=== PATIENT | male | born 1930 | race Caucasian/White ===

== ENCOUNTER 2016-11-29 08:16 | Day surgery (SDC) | payer OTHER, BC ==
[2016-11-25 18:23] VITALS: BMI 20.9
[2016-11-29 10:18] LABS: ALBUMIN 3.8 g/dl (3.4-5.0); BILIRUBIN,TOTAL 0.7 mg/dL (0.2-1.0); CALCIUM 9.3 mg/dL (8.5-10.1); CREATININE 1.8 mg/dL (0.7-1.3); TOT PROT 7.1 g/dl (6.4-8.2)
[2016-11-29] MEDS ORDERED: LIDOCAINE HCL/PF 2% SDV 5ML VIAL ONE (10:58)
[2016-11-29] MEDS ORDERED: PROPOFOL 20 ML ONE (10:58)
[2016-11-29] MEDS ORDERED: LEVOFLOXACIN 500 MG PREMIX BAG IVPB ONE (11:03)
--- NOTE | 2016-11-29 12:17 | OP ---
Operative Note - Note: Operative Date: 11/29/16 Pre-Operative Diagnosis: Right hydronephrosis; gross hematuria; transitional cell carcinoma of the bladder Operation: cystoscopy; right ureteroscopy and attempted stent placement; trasurethral resection and vaporization of the bladder Findings: tumor with necrosis involving right dome, right lateral wall, and right hemitrigone. right intramural ureter obstructed secondary to TCC Post-Operative Diagnosis: Same as Pre-op Surgeon: Jose Guadalupe Meléndez Anesthesia: General Specimens Removed: bladder tumor fragments Drains & Tubes with Location: [address]
[2016-11-29] MEDS ORDERED: ONDANSETRON 4 MG/2 ML VIAL IVPUSH PRN (12:23)
[2016-11-29] MEDS ORDERED: oxyCODONE HCL 5 MG TABLET PO PRN (12:23)
[2016-11-29 13:19] VITALS: TEMP 98
[2016-11-29 14:32] VITALS: BP 146/68; PULSE 94
--- NOTE | 2016-11-29 19:42 | OP ---
DATE OF OPERATION: 11/29/2016 PREOPERATIVE DIAGNOSIS: Right hydronephrosis with transitional cell carcinoma involving right lateral wall and right hemitrigone with gross hematuria. ATTENDING: Jose Guadalupe Meléndez M.D. ANESTHESIA: General. PROCEDURE: Cystoscopy, right ureteroscopy and attempted stent placement. Transurethral resection and vaporization of bladder tumor involving right dome right lateral wall and right hemitrigone. DESCRIPTION OF PROCEDURE: The patient has a longstanding history of transitional cell carcinoma for which she does not want aggressive treatment. The patient has subsequently developed gross hematuria with clots requiring evacuation in the office setting. The patient continues with gross hematuria and is aware that he will require intervention in order to control the bleeding. The patient has been offered a transurethral resection vaporization of the bladder tumor in order to maintain his ability to avoid and reduce the gross hematuria. 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 The patient is currently against a right percutaneous nephrostomy tube placement with internalization of stent. The patient has been given all risks and benefits of all procedures and requests that minimal intervention be done at this time. The patient understands all risks and benefits including clot retention and with bladder perforation and an emergency cystectomy. In addition, the patient understands that he has a significant risk of loss of right kidney function. The patient is brought in the operating room and given general anesthesia without complication, placed in dorsal lithotomy position. Cystoscopy is performed and attempts at identifying the right ureteral orifice were successful. A wire was placed into the area of the right ureteral orifice and the wire passed roughly 2 cm proximally. Ureteroscopy was then performed and attempts at passing wire beyond this point were unsuccessful due to tumor involvement of the ureterovesical junction on the right hand side. Because of the position of the obstruction resection to this level would be high risk with risk of perforation and damage to the rectum, it was decided to remove the ureteroscope and attempt to present the case to the patient once again once he is awake and stable to have a right percutaneous nephrostomy tube. At this point, resection of tumor tissue was performed in order to ascertain tissue diagnosis. Once resection was accomplished, vaporization of the bulky tumor involving the dome right lateral wall and right hemitrigone were performed. The tumor was necrotic with significant amount of necrotic material and liquefaction present with vaporization. Hemostasis was obtained. All clots were evacuated. The area of the tumor involved area of 10 x 10 cm involving the right half of the bladder at this point. There was no evidence of perforation during the procedure. A 24 Lao catheter straight drainage was left in place. The patient will be followed conservatively. Kennedi [id number]
--- NOTE | 2016-11-30 13:41 | PATH ---
Surgical Pathology Report Patient Name: IRINEO FALLON JR [facility]. Rec. 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 LAMINA PROPRIA INVASION: PRESENT. MUSCULARIS PROPRIA IS PRESENT, INVOLVED BY CARCINOMA. LYMPHOVASCULAR INVASION: NOT DEFINITIVELY IDENTIFIED. Electronically Signed Bravo Segovia M.D. Gross Description Received in formalin, labeled "bladder tumor" is a 2.6 x 2.0 x 0.3 cm aggregate of tirado soft tissue fragments admixed with blood clot. The formalin is filtered and the specimen is entirely submitted in one cassette. /11/29/2016 saudi11/29/2016
== END 2016-11-29 14:35 | disposition home or self-care (01) ==
LOC: JASU-SURG 08:16
PROVIDERS: ATTEND Urology
PROC: 0T5B8ZZ Destruction of Bladder, Via Natural or Artificial Opening Endoscopic (ICD-10-PCS; principal; 2016-11-29 09:30)
DX: C67.9 Malignant neoplasm of bladder, unspecified (principal); R31.0 Gross hematuria; N32.89 Other specified disorders of bladder
CPT/HCPCS: 36415; 80053; 88307-TC; 94760

== ENCOUNTER 2017-01-19 14:37 | Inpatient (IN) | payer OTHER, BC ==
--- NOTE | 2017-01-19 14:59 | PDOC ---
Rapid Medical Evaluation Chief Complaint: Pain, Acute Time Seen by Provider: 01/19/17 14:53 Medical Evaluation: Allergies Allergy/AdvReac Type Severity Reaction Status Date / Time No Known Drug Allergies Allergy Verified 11/29/16 08:49 01/19/17 14:54 Unable to move Right Leg with pain to hip- Hx of sciatica - 2 weeks ago onset of pain , no swelling , NO history of trauma or changes in exercise. diagnosed with Bladder cancer x 1 year. No other medical complaints incl fevers/ CP/ Palp/ SOB/COugh. Dr Martin- told to come to ER Orders- will need to be taken to ER for further testing and evaluiation. 01/19/17 15:03 01/19/17 15:04
[2017-01-19 15:32] LABS: BASOPHIL 0.2 % (0-2.0); EOSINOPHIL 0.3 % (0-4.5); MCH 28.6 pg (25.7-33.7); MCHC 34.9 g/dl (32.0-35.9); MEAN CELL VOLUME 81.8 fl (80-96); MEAN PLT VOLUME 7.2 fl (7.5-11.1); NEUTROPHILS 86.5 % (42.8-82.8); PLATELET COUNT 267 K/MM3 (134-434); RDW 14.4 % (11.9-15.9); WHITE BLOOD COUNT 10.9 K/mm3 (4.0-10.0)
[2017-01-19 15:55] LABS: ALBUMIN 3.9 g/dl (3.4-5.0); BILIRUBIN,TOTAL 0.8 mg/dL (0.2-1.0); CALCIUM 8.9 mg/dL (8.5-10.1); CREATININE 1.6 mg/dL (0.7-1.3); TOT PROT 7.3 g/dl (6.4-8.2)
[2017-01-19 16:09] LABS: INR 1.11 (0.82-1.09); PROTHROMBIN TIME (PATIENT) 12.2 SEC (9.98-11.88)
[2017-01-19 16:30] LABS: URINE APPEARANCE CLEAR; URINE BILIRUBIN NEGATIVE (NEGATIVE); URINE COLOR LTYELLOW; URINE GLUCOSE (UA) NEGATIVE (NEGATIVE); URINE KETONE NEGATIVE (NEGATIVE); URINE NITRITE NEGATIVE (NEGATIVE); URINE UROBILINOGEN 2.0 E.U/dl E.U./dl (0.2-1.0)
[2017-01-19 16:44] LABS: URINE BLOOD 2+ (NEGATIVE); URINE LEUK ESTERASE 2+ (NEGATIVE); URINE PROTEIN 1+ (NEGATIVE)
--- NOTE | 2017-01-19 17:50 | PDOC ---
[id number] FATIGUE, UNABLE TO WALK Time Seen by Provider: 01/19/17 14:53 History Source: Patient Exam Limitations: No Limitations - History of Present Illness Initial Comments: CHIEF COMPLAINT: 86 y/o afebrile male with PMH HTN, HLD, bladder CA c/o right leg pain and weakness since yesterday. HISTORY OF PRESENT ILLNESS: The patient denies trauma and fall. He states all of a sudden last night he was feeling a lot of pain any time he put weight on his right leg. He states today the leg keeps giving out on him if he bears weight. He denies f/c, n/v/d, weight loss, CP, SOB, abd pain, pelvic pain. He hasn't taken any OTC medication for his pain and is currently refusing pain medication. Vital signs on arrival are within normal limits. REVIEW OF SYSTEMS: GENERAL/CONSTITUTIONAL: No fever/chills. No weakness. No weight change. HEAD, EYES, EARS, NOSE AND THROAT: No change in vision. No ear pain or discharge. No sore throat. CARDIOVASCULAR: No chest pain or shortness of breath. RESPIRATORY: No cough, wheezing, or hemoptysis. GASTROINTESTINAL: No abd pain, nausea, vomiting, diarrhea. GENITOURINARY: No dysuria, frequency, or change in urination. MUSCULOSKELETAL: +right leg pain and weakness. No neck or back pain. SKIN: No rash or easy bruising. NEUROLOGIC: No headache, vertigo, loss of consciousness, or loss of sensation. PHYSICAL EXAM: GENERAL: The patient is awake, alert, and fully oriented, in no acute distress. He is well appearing. HEAD: Normal with no signs of trauma. ENT: Pupils equal, round and reactive to light, extraocular movements intact, sclera anicteric, conjunctiva clear. Neck supple. LUNGS: Clear to auscultation bilaterally. Normal excursion. No respiratory distress or use of accessory muscles. CV: RRR, S1/S2, no MRG. Cap refill < 2 sec. ABDOMEN: Soft, non-distended, non-tender even to deep palpation, no hepatomegaly or splenomegaly, no masses. EXTREMITIES: No edema. no pain with palpation of right leg, calf, hip or pelvis. No palor to right leg. 2+ dorsalis pedis pulse to right foot. No erythema or streaking to affected extremity. No ROM of affected leg. No pain with passive flexion, extension of right hip or knee. No pain with passive internal and external rotation of right hip. No leg length discrepancy. NEUROLOGICAL: Normal speech. Gait not assessed in the ER. CN II-XII grossly intact. PSYCH: Normal mood, normal affect. SKIN: Warm, dry, normal turgor, no rashes or lesions noted. Past History - Past Medical History Allergies/Adverse Reactions: Allergies Allergy/AdvReac Type Severity Reaction Status Date / Time No Known Drug Allergies Allergy Verified 01/19/17 14:59 Home Medications: Ambulatory Orders Amlodipine Besylate [Norvasc -] 5 mg PO DAILY #0 tablet 02/09/14 Atorvastatin Ca [Lipitor] 10 mg PO HS #0 tablet 02/09/14 Hydrochlorothiazide [Hctz -] 25 mg PO DAILY #0 tablet 02/09/14 Metoprolol Tartrate [Lopressor -] 50 mg PO DAILY #0 tablet 02/09/14 Cancer: Yes (BLADDER) Disorders: Yes (BPH) HTN: Yes (controlled with meds) Hypercholesterolemia: Yes - Surgical History Abdominal Surgery: Yes (hernia x2) - Psycho/Social/Smoking Cessation Hx Anxiety: No Suicidal Ideation: No Smoking History: Never smoked Have you smoked in the past 12 months: No Number of Cigarettes Smoked Daily: 0 If you are a former smoker, when did you quit?: 12YRS AGO Cigars Per Day: 3 Hx Alcohol Use: No Drug/Substance Use Hx: No Substance Use Type: None *Physical Exam - Vital Signs Last Vital Signs Temp Pulse Resp BP Pulse Ox 97.6 F 81 20 145/69 100 01/19/17 14:53 01/19/17 14:53 01/19/17 14:53 01/19/17 14:53 01/19/17 14:53 ED Treatment Course - LABORATORY CBC & Chemistry Diagram: 01/21/17 05:00 01/21/17 05:00 - ADDITIONAL ORDERS Additional order review: Laboratory Results 01/19/17 01/19/17 01/19/17 15:45 15:15 15:15 INR 1.11 Sodium 129 L Potassium 4.1 Chloride 89 L Carbon Dioxide 30 Anion Gap 10 BUN 35 H Creatinine 1.6 H Creat Clearance w eGFR 41.00 Random Glucose 114 H Calcium 8.9 Total Bilirubin 0.8 AST 14 L D ALT 19 D Alkaline Phosphatase 116 D Total Protein 7.3 Albumin 3.9 Urine Color Ltyellow Urine Appearance Clear Urine pH 6.0 Ur Specific [place] 1.016 Urine Protein 1+ H Urine Glucose (UA) Negative Urine Ketones Negative Urine Blood 2+ H Urine Nitrite Negative Urine Bilirubin Negative Urine Urobilinogen 2.0 e.u/dl Ur Leukocyte Esterase 2+ H 01/19/17 15:15 RBC 3.97 L MCV 81.8 MCHC 34.9 RDW 14.4 MPV 7.2 L Neutrophils % 86.5 H Lymphocytes % 5.2 L D Monocytes % 7.8 Eosinophils % 0.3 D Basophils % 0.2 Medical Decision Making - Medical Decision Making A/P: 86 y/o afebrile male with possible metastatic disease to right hip/ pelvis. He has sudden onset atraumatic right leg pain/weakness. Plan is as follows: 1. Labs 2. Xray right hip/pelvis 3. CXR Labs unremarkable I am signing this patient out to my colleague: MEGAN Fuentes In brief, this patient is being seen in the ED for a chief complaint of: right leg pain and weakness I have completed the initial assessment interview note and have ordered: labs, CXR, xray right hip/pelvis I have reviewed the following results: labs Pending results are: xrays Please call the PCP: Bright Plan for disposition is as follows: pending *DC/Admit/Observation/Transfer Diagnosis at time of Disposition: Leg pain, right, Right leg weakness - Discharge Dispostion Condition at time of disposition: Good
[2017-01-19 19:38] LABS: URINE RBC 72 /hpf (0-3); URINE WBC 65 /hpf (3-5)
[2017-01-19] MEDS ORDERED: PIPERACILLIN/TAZOB 3.375 GM 50 ML IVPB ONE (21:15)
[2017-01-19] MEDS ORDERED: PIPERACILLIN/TAZOB 3.375 GM/50 ML PRE-DOCKED IVPB ONE (22:03)
--- NOTE | 2017-01-20 | PDOC ---
*Physical Exam - Vital Signs Last Vital Signs Temp Pulse Resp BP Pulse Ox 98.8 F 80 18 129/55 99 01/19/17 19:14 01/19/17 19:14 01/19/17 19:14 01/19/17 19:14 01/19/17 19:14 - Physical Exam Comments: 01/19/17 23:59 Sign-out received from outgoing ER provider Jasmin. Pt interviewed and examined. Ancillary studies reviewed. X-ray results negative for mets. Patient UA positive for UTI. Creatinine 1.6, down from 1.8 on 11/29/16 -3.375g Zosyn IV CT results negative for mets, MRI recommended. Patient still non ambulatory, bathroom at home is upstairs. Will admit to obs for social hold, patient requires VNS or transfer to SNF/rehab in AM. Discussed case with attending hospitalist MD Brunner, will admit for med/surg obs. ED Treatment Course - LABORATORY CBC & Chemistry Diagram: 01/19/17 15:15 01/19/17 15:15 - ADDITIONAL ORDERS Additional order review: Laboratory Results 01/19/17 01/19/17 01/19/17 15:45 15:15 15:15 INR 1.11 Sodium 129 L Potassium 4.1 Chloride 89 L Carbon Dioxide 30 Anion Gap 10 BUN 35 H Creatinine 1.6 H Creat Clearance w eGFR 41.00 Random Glucose 114 H Calcium 8.9 Total Bilirubin 0.8 AST 14 L D ALT 19 D Alkaline Phosphatase 116 D Total Protein 7.3 Albumin 3.9 Urine Color Ltyellow Urine Appearance Clear Urine pH 6.0 Ur Specific [place] 1.016 Urine Protein 1+ H Urine Glucose (UA) Negative Urine Ketones Negative Urine Blood 2+ H Urine Nitrite Negative Urine Bilirubin Negative Urine Urobilinogen 2.0 e.u/dl Ur Leukocyte Esterase 2+ H Urine RBC 72 Urine WBC 65 Ur Epithelial Cells Rare 01/19/17 15:15 RBC 3.97 L MCV 81.8 MCHC 34.9 RDW 14.4 MPV 7.2 L Neutrophils % 86.5 H Lymphocytes % 5.2 L D Monocytes % 7.8 Eosinophils % 0.3 D Basophils % 0.2 - RADIOLOGY Radiology Studies Ordered: Category Date Time Status LUMBAR SPINE CT W/O CONTRAST [CT] Stat CT Scan 01/19/17 21:00 Completed - Medications Given in the ED: ED Medications Discontinued Medications Generic Name Dose Route Start Last Admin Trade Name Lucia PRN Reason Stop Dose Admin Piperacillin Sod/Tazobactam Sod 3.375 gm 01/19/17 22:03 01/19/17 22:04 Zosyn 3.375gm Ivpb (Pre-Docked) IVPB 01/19/17 22:04 3.375 gm ONCE ONE Administration Protocol *DC/Admit/Observation/Transfer Diagnosis at time of Disposition: Leg pain, right, Right leg weakness - Discharge Dispostion Condition at time of disposition: Good Admit: Yes - Referrals - Patient Instructions - Post Discharge Activity
[2017-01-20] MEDS ORDERED: SODIUM CHLORIDE 500 ML IV STA (00:40)
--- NOTE | 2017-01-20 01:39 | HP ---
CHIEF COMPLAINT: Right Leg Weakness, Pain, and Non-ambulatory PCP: Dr. Vega HISTORY OF PRESENT ILLNESS: This is a 86 y/o male with a past medical history of Hypertension, Hyperlipidemia, Sciatica, Bladder Ca ( x 1 year, chemo completed), s/p bladder scrapping x 6 weeks. Who presents to the emergency department accompanied by his daughter with right leg weakness, pain, non-ambulatory x 1 day. Patient reports ambulating with a cane, falling in his kitchen onto his buttock. Patient denies LOC. Patient states" I can't stand or walk on my right leg, because of the pain". Patient's daughter reports that the patient lives at home alone, and the bathroom is located upstairs. Patient denies fever, chills, cough , SOB, CP, AP, N/V/D ER course was notable for: (1) Xray R- Hip & Pelvis: No radiographic evidence of neoplastic disease or fracture is identified (2) LSP CT:No CT evidence of osseous neoplastic disease. Prominent multilevel degenerative disc and facet joint changes. (3) UA: +protein, leukocyte esterase, WBC (4) Na: 129 Recent Travel: None PAST MEDICAL HISTORY: See HPI PAST SURGICAL HISTORY: Hernia Repair Social History: Smoking: Former- Cigar Alcohol: None Drugs: None Family History: Allergies No Known Drug Allergies Allergy (Verified 01/19/17 14:59) HOME MEDICATIONS: Home Medications Medication Instructions Recorded Amlodipine Besylate [Norvasc -] 5 mg PO DAILY #0 tablet 02/09/14 Atorvastatin Ca [Lipitor] 10 mg PO HS #0 tablet 02/09/14 Hydrochlorothiazide [Hctz -] 25 mg PO DAILY #0 tablet 02/09/14 Metoprolol Tartrate [Lopressor -] 50 mg PO DAILY #0 tablet 02/09/14 REVIEW OF SYSTEMS CONSTITUTIONAL: Absent: fever, chills, diaphoresis, generalized weakness, malaise, loss of appetite, weight change HEENT: Absent: rhinorrhea, nasal congestion, throat pain, throat swelling, difficulty swallowing, mouth swelling, ear pain, eye pain, visual changes CARDIOVASCULAR: Absent: chest pain, syncope, palpitations, irregular heart rate, lightheadedness , peripheral edema RESPIRATORY: Absent: cough, shortness of breath, dyspnea with exertion, orthopnea, wheezing, stridor, hemoptysis GASTROINTESTINAL: Absent: abdominal pain, abdominal distension, nausea, vomiting, diarrhea, constipation, melena, hematochezia GENITOURINARY: burning, frequency Absent: dysuria, urgency, hesitancy, hematuria, flank pain, genital pain MUSCULOSKELETAL: Absent: myalgia, arthralgia, joint swelling, back pain, neck pain SKIN: Absent: rash, itching, pallor HEMATOLOGIC/IMMUNOLOGIC: Absent: easy bleeding, easy bruising, lymphadenopathy, frequent infections ENDOCRINE: Absent: unexplained weight gain, unexplained weight loss, heat intolerance, cold intolerance NEUROLOGIC: Absent: headache, focal weakness or paresthesias, dizziness, unsteady gait, seizure, mental status changes, bladder or bowel incontinence PSYCHIATRIC: Absent: anxiety, depression, suicidal or homicidal ideation, hallucinations. PHYSICAL EXAMINATION Vital Signs - 24 hr 01/19/17 01/19/17 14:53 19:14 Temperature 97.6 F 98.8 F Pulse Rate 81 Pulse Rate [ 80 Radial] Respiratory 20 18 Rate Blood Pressure 145/69 Blood Pressure 129/55 [Left Arm] O2 Sat by Pulse 100 99 Oximetry (%) GENERAL: Awake, alert, and fully oriented, in no acute distress. HEAD: Normal with no signs of trauma. EYES: Pupils equal, round and reactive to light, extraocular movements intact, sclera anicteric, conjunctiva clear. No lid lag. EARS, NOSE, THROAT: Ears normal, nares patent, oropharynx clear without exudates. Dry mucous membranes. NECK: Normal range of motion, supple without lymphadenopathy, JVD, or masses. LUNGS: Breath sounds equal, clear to auscultation bilaterally. No wheezes, and no crackles. No accessory muscle use. HEART: Regular rate and rhythm, normal S1 and S2 without murmur, rub or gallop. ABDOMEN: Soft, nontender, not distended, normoactive bowel sounds, no guarding, no rebound, no masses. No hepatomegaly or splenomegaly. MUSCULOSKELETAL: Normal range of motion RUE, LUE, LLE joints. No bony deformities. No CVA tenderness. LROM of RLE. +tenderness to right gluteal aspect. +straight leg raise test. UPPER EXTREMITIES: 2+ pulses, warm, well-perfused. No cyanosis. No clubbing. No peripheral edema. LOWER EXTREMITIES: 2+ pulses, warm, well-perfused. No calf tenderness. No peripheral edema. NEUROLOGICAL: Cranial nerves II-XII intact. Normal speech. Gait not observed. PSYCHIATRIC: Cooperative. Good eye contact. Appropriate mood and affect. SKIN: Warm, dry, normal turgor, no rashes or lesions noted, normal capillary refill. Laboratory Results - last 24 hr 01/19/17 01/19/17 01/19/17 15:15 15:15 15:15 WBC 10.9 H RBC 3.97 L Hgb 11.3 L D Hct 32.5 L MCV 81.8 MCHC 34.9 RDW 14.4 Plt Count 267 MPV 7.2 L Neutrophils % 86.5 H Lymphocytes % 5.2 L D Monocytes % 7.8 Eosinophils % 0.3 D Basophils % 0.2 INR 1.11 Sodium 129 L Potassium 4.1 Chloride 89 L Carbon Dioxide 30 Anion Gap 10 BUN 35 H Creatinine 1.6 H Creat Clearance w eGFR 41.00 Random Glucose 114 H Calcium 8.9 Total Bilirubin 0.8 AST 14 L D ALT 19 D Alkaline Phosphatase 116 D Total Protein 7.3 Albumin 3.9 Urine Color Urine Appearance Urine pH Ur Specific [place] Urine Protein Urine Glucose (UA) Urine Ketones Urine Blood Urine Nitrite Urine Bilirubin Urine Urobilinogen Ur Leukocyte Esterase Urine RBC Urine WBC Ur Epithelial Cells 01/19/17 15:45 WBC RBC Hgb Hct MCV MCHC RDW Plt Count MPV Neutrophils % Lymphocytes % Monocytes % Eosinophils % Basophils % INR Sodium Potassium Chloride Carbon Dioxide Anion Gap BUN Creatinine Creat Clearance w eGFR Random Glucose Calcium Total Bilirubin AST ALT Alkaline Phosphatase Total Protein Albumin Urine Color Ltyellow Urine Appearance Clear Urine pH 6.0 Ur Specific [place] 1.016 Urine Protein 1+ H Urine Glucose (UA) Negative Urine Ketones Negative Urine Blood 2+ H Urine Nitrite Negative Urine Bilirubin Negative Urine Urobilinogen 2.0 e.u/dl Ur Leukocyte Esterase 2+ H Urine RBC 72 Urine WBC 65 Ur Epithelial Cells Rare ASSESSMENT/PLAN: This is a 86 y/o male with a PMHx of: HTN, HLD, Sciatica, Bladder Ca ( 2016, completed chemo x 1year), s/p bladder scrapping 6 weeks ago. Presents to the ED with RLE weakness, pain, non-ambulatory. Placed in Observation for RLE weakness , UTI, Hyponatremia for further evaluation of their emergent condition. Problem List - Problem (1) Right leg weakness Assessment/Plan: - Patient reports fall x today, with increased leg weakness, non-ambulatory, non -weight bearing - Xray R- Hip & Pelvis- No radiographic evidence of neoplastic disease or fracture is identified - LSP CT- No CT evidence of osseous neoplastic disease. Prominent multilevel degenerative disc and facet joint changes are noted. A minimal to mild chronic L2 vertebral body compression fracture is noted without bony retropulsion. - Deputy Director Of Public Works Consult for VNS services - Therapeutic Sales Specialist Consult for Rehab or SNF placement - Neuro checks - PT Code(s): R29.898 - OTH SYMPTOMS AND SIGNS INVOLVING THE MUSCULOSKELETAL SYSTEM (2) Leg pain, right Assessment/Plan: - Likely secondary to radiculopathy - Xray R-Leg- See Above - LSP CT- See Above - PT - Case Management Consult for possible SNF placement - Hog Driver Consult for VNS - Tylenol prn Code(s): M79.604 - PAIN IN RIGHT LEG (3) UTI (urinary tract infection) Assessment/Plan: - UA + Leukocyte esterase, +WBC - Urine Culture- pending - Zosyn given in ED - Will start Ceftriaxone. - Monitor CBC, vitals Code(s): N39.0 - URINARY TRACT INFECTION, SITE NOT SPECIFIED (4) Hyponatremia Assessment/Plan: - Likely secondary to Medication vs hypovalemia, dehydration - Will give NS bolus, then continue 42ml/hr - Na corrected 131 - Hold HCTZ - Monitor BMP Code(s): E87.1 - HYPO-OSMOLALITY AND HYPONATREMIA (5) HLD (hyperlipidemia) Assessment/Plan: - Continue Liptor Code(s): E78.5 - HYPERLIPIDEMIA, UNSPECIFIED (6) HTN (hypertension) Assessment/Plan: - BP Controlled - Continue Lopressor, Norvasc - Hold HCTZ 2/2 KIANNA - Low Na Code(s): I10 - ESSENTIAL (PRIMARY) HYPERTENSION (7) DVT prophylaxis Assessment/Plan: - OOB - TEDs - Heparin SQ Code(s): BVT1179 - Visit type - Emergency Visit Emergency Visit: Yes ED Registration Date: 01/20/17 Care time: The patient presented to the Emergency Department on the above date and was hospitalized for further evaluation of their emergent condition. - New Patient This patient is new to me today: Yes Date on this admission: 01/20/17 - Critical Care Critical Care patient: No
[2017-01-20 03:11] VITALS: BMI 20.4
[2017-01-20] MEDS ORDERED: SODIUM CHLORIDE 1,000 ML IV SCH ×2 (07:00→13:41)
[2017-01-20] MEDS: HEPARIN NA (PORCINE) 5,000 UNITS/ML 1ML VIAL SQ SCH ×2 (09:49→21:37)
[2017-01-20] MEDS: amLODIPine BESYLATE 5 MG TABLET (FP) PO SCH (09:49)
[2017-01-20] MEDS: METOPROLOL TARTRATE 50 MG TABLET (FP) PO SCH (09:49)
[2017-01-20] MEDS: cefTRIAXone 1 GM/50 ML BAG (PRE-DOCKED) IVPB SCH (09:50)
[2017-01-20] MEDS ORDERED: CEFTRIAXONE 1 GM in DEXTROSE 5%-WATER - 100 ML IVPB SCH (10:00)
[2017-01-20 10:15] LABS: BASOPHIL 0.3 % (0-2.0); EOSINOPHIL 0.4 % (0-4.5); MCH 28.3 pg (25.7-33.7); MCHC 34.8 g/dl (32.0-35.9); MEAN CELL VOLUME 81.5 fl (80-96); MEAN PLT VOLUME 7.1 fl (7.5-11.1); NEUTROPHILS 84.2 % (42.8-82.8); PLATELET COUNT 234 K/MM3 (134-434); RDW 14.1 % (11.9-15.9); WHITE BLOOD COUNT 7.8 K/mm3 (4.0-10.0)
[2017-01-20 10:34] LABS: ALBUMIN 3.3 g/dl (3.4-5.0)
[2017-01-20 11:15] LABS: BILIRUBIN,TOTAL 0.9 mg/dL (0.2-1.0); CALCIUM 8.7 mg/dL (8.5-10.1); CREATININE 1.5 mg/dL (0.7-1.3); TOT PROT 6.1 g/dl (6.4-8.2)
--- NOTE | 2017-01-20 13:41 | PN ---
Physical Exam: SUBJECTIVE: Patient seen and examined. He was laying in the bed, states he feels well. He reports being very independent at home. Daughter and son in room and report patient is very independent, lives alone. Able to care for himself but they noticed that he had poor PO intake and some depression over loss of 3 years ago. OBJECTIVE: Bladder scan shows residual of 45cc/hr No suprapubic discomfort or distention pt able to void without difficulty/@ times incontinent Spoke with Dr. Vega, patient's Primary physician - Physician to see pt tonight , aware and agree to hospitalist service on his patient Dr. Culp consulted for KIANNA CT findings Vital Signs Period Temp Pulse Resp BP Sys/Askew Pulse Ox Last 24 Hr 97.5 F-98.2 F 77-82 17-20 118-145/56-70 99-100 GENERAL: The patient is awake, alert, and fully oriented, in no acute distress. HEAD: Normal with no signs of trauma. EYES: PERRL, extraocular movements intact, sclera anicteric, conjunctiva clear. No ptosis. ENT: Ears normal, nares patent, oropharynx clear without exudates, moist mucous membranes. NECK: Trachea midline, full range of motion, supple. LUNGS: Breath sounds equal, clear to auscultation bilaterally, no wheezes, no crackles, no accessory muscle use. HEART: Regular rate and rhythm ABDOMEN: Soft, nontender, nondistended, + bowel sounds, no guarding, no rebound , no hepatosplenomegaly, no masses. EXTREMITIES: 2+ pulses, warm, well-perfused, no edema. NEUROLOGICAL: Normal speech,right leg weakness PSYCH: Normal mood, normal affect. SKIN: Warm, dry, normal turgor, no rashes or lesions noted Laboratory Results - last 24 hr 01/20/17 01/20/17 09:45 09:45 WBC 7.8 RBC 3.61 L Hgb 10.2 L Hct 29.4 L MCV 81.5 MCHC 34.8 RDW 14.1 Plt Count 234 MPV 7.1 L Neutrophils % 84.2 H Lymphocytes % 7.2 L D Monocytes % 7.9 Eosinophils % 0.4 Basophils % 0.3 Sodium 132 L Potassium 3.8 Chloride 93 L Carbon Dioxide 28 Anion Gap 11 BUN 28 H Creatinine 1.5 H Creat Clearance w eGFR 44.17 Random Glucose 144 H D Calcium 8.7 Total Bilirubin 0.9 AST 11 L D ALT 16 Alkaline Phosphatase 101 Total Protein 6.1 L Albumin 3.3 L Active Medications Generic Name Dose Route Start Last Admin Trade Name Lucia PRN Reason Stop Dose Admin Amlodipine Besylate 5 mg 01/20/17 10:00 01/20/17 09:49 Norvasc - PO 5 mg DAILY LUCÍA Administration Atorvastatin Calcium 10 mg 01/20/17 22:00 Lipitor - PO HS LUCÍA Ceftriaxone Sodium 1 gm 01/20/17 10:00 01/20/17 09:50 Rocephin 1gm Ivpb (Pre-Docked) IVPB 1 gm DAILY LUCÍA Administration Heparin Sodium (Porcine) 5,000 unit 01/20/17 10:00 01/20/17 09:49 Heparin - SQ 5,000 unit BID LUCÍA Administration Sodium Chloride 1,000 mls @ 42 mls/hr 01/20/17 07:00 01/20/17 09:49 Normal Saline - IV 42 mls/hr ASDIR LUCÍA Administration Metoprolol Tartrate 50 mg 01/20/17 10:00 01/20/17 09:49 Lopressor - PO 50 mg DAILY LUCÍA Administration ASSESSMENT/PLAN: Patient is a 86 year old male with a significant past medical history of hypertension, hyperlipidemia, sciatica, bladder cancer s/p chemotherapy and s/p bladder scrapping. He presented to the ER on 01/09/2017 for right leg weakness s/p fall at home where he landed on his buttocks. He reports that he has had worsening right leg pain and weakness x 1 day. Patient's daughter reports that patient lives at home alone with an upstairs bathroom. As per daughter, patient is usually ambulatory with cane and independent with all ADLs. Patient continues to deny fever, chills, cough, shortness of breath or any other discomfort. During my exam, he was laying in the bed, in no acute distress. Imagin01/19/2017 - Xray R- Hip & Pelvis: No radiographic evidence of neoplastic disease or fracture is identified 01/19/2017 - CT/Lumbar spine ct w/o contrast:No evidence of osseous neoplastic disease. Prominent multilevel degenerative disc and facet joint changes are noted. In comparison with the abd/pelvic ct of 10/12/2007, interval development of the focal soft tissue thickening along the right post aspect of the partially imaged bladder wall consistent with known mets disease. Development of right sided hydroureteronephrosis is probably moderate. 01/19/2017 - UA: +protein, + leukocyte esterase, WBC 65 Muscular/Skeletal Right Leg Pain/weakness - s/p fall Assessment/Plan: Xray of right leg with no evidence of neoplastic disease or fracture CT/Lumbar spine ct w/o contrast:No evidence of osseous neoplastic disease. Prominent multilevel degenerative disc and facet joint changes are noted Will need physical therapy = requested Possible short term rehab - SW following Fall risk ID: Urinary Tract Infection - acute Assessment/Plan: UA: +protein, + leukocyte esterase, WBC 65 + Leukocytosis on admission Zosyn given in ED, Started on Rocephin 1 gram on 01/20/2017 Urine cultures pending Blood cultures ordered WBC normalized today monitor CBC, vitals : Acute Kidney Injury Assessment/Plan: on CT/Pelvis shows development of right sided hydroureteronephrosis-moderate Dr. Culp consulted Monitor I & O BUN/Creat: 28/1.5 today, baseline appears to be between 1.0~1.2 Bladder scan with very little post void residual Hyponatremia - likely related to dehydration Assessment/Plan: hyponatremia improving with NS bolus 129> 132 NS @ 75cc/hr Will continue to hold HCTZ monitor BMP F.E.N. Fluids: NS @ 75cc/hr Electrolytes: hyponatremia improving on IV fluids Nutrition: reported to have poor PO intake, will order Ensure with meals Disposition: Requires inpatient hospitalization, and likely will need short term rehab. Full Code. Visit type - Emergency Visit Emergency Visit: Yes ED Registration Date: 01/20/17 Care time: The patient presented to the Emergency Department on the above date and was hospitalized for further evaluation of their emergent condition. - New Patient This patient is new to me today: Yes Date on this admission: 01/20/17 - Critical Care Critical Care patient: No - Discharge Referral Referred to [facility] Med P.C[facility] No
--- NOTE | 2017-01-20 17:06 | EKG ---
Test Reason : Blood Pressure : / mmHG Vent. Rate : 079 BPM Atrial Rate : 079 BPM P-R Int : 190 ms QRS Dur : 088 ms QT Int : 388 ms P-R-T Axes : 085 -70 057 degrees QTc Int : 444 ms POOR DATA QUALITY, INTERPRETATION MAY BE ADVERSELY AFFECTED SINUS RHYTHM WITH PREMATURE ATRIAL COMPLEXES LEFT AXIS DEVIATION ABNORMAL ECG Confirmed by WILLIAM KEANE MD ([id number]) on 01/20/2017 5:06:21 PM Referred By: Confirmed By:WILLIAM KEANE MD
[2017-01-20] MEDS ORDERED: PIPERACILLIN/TAZOB 3.375 GM/50 ML PRE-DOCKED IVPB ONE ×2 (20:47→21:41)
[2017-01-20] MEDS: ATORVASTATIN CA 10 MG TABLET (FP) PO SCH (21:37)
[2017-01-21 06:45] LABS: EOSINOPHIL 1.9 % (0-4.5); MCHC 34.2 g/dl (32.0-35.9); MEAN CELL VOLUME 82.1 fl (80-96); MEAN PLT VOLUME 7.4 fl (7.5-11.1); NEUTROPHILS 71.4 % (42.8-82.8); PLATELET COUNT 251 K/MM3 (134-434); RDW 14.2 % (11.9-15.9); WHITE BLOOD COUNT 7.5 K/mm3 (4.0-10.0)
[2017-01-21 06:59] LABS: CALCIUM 8.2 mg/dL (8.5-10.1)
[2017-01-21 07:00] LABS: CREATININE 1.4 mg/dL (0.7-1.3)
--- NOTE | 2017-01-21 08:43 | CONSULT ---
Consult Consult Specialty:: Nephrology Reason for Consultation:: KIANNA - History of Present Illness Chief Complaint: right leg pain History of Present Illness: Pt is an 86 year old male with pmhx of HTN, Chol, Sciatica, bladder cancer, and right obstructive uropathy who presents to the ER with right leg pain and weakness. Pt did have a fall at home. He was found to have elevated creatinine and I was called to evaluate him. He denies history of CKD. He denies dysuria at the moment. He denies nsaid use. He is awake and alert. - History Source History Provided By: Patient, Medical Record - Past Medical History Cardio/Vascular: Yes: HTN, Hyperlipdemia Heme/Onc: Yes: Other (bladder cancer) Musculoskeletal: Yes: Other (sciatica) - Past Surgical History Additional Surgical History: cystoscopy - Alcohol/Substance Use Hx Alcohol Use: No - Smoking History Smoking history: Never smoked Have you smoked in the past 12 months: No Aproximately how many cigarettes per day: 0 If you are a former smoker, when did you quit?: 12YRS AGO Home Medications - Allergies Allergies/Adverse Reactions: Allergies Allergy/AdvReac Type Severity Reaction Status Date / Time No Known Drug Allergies Allergy Verified 01/19/17 14:59 - Home Medications Home Medications: Ambulatory Orders Amlodipine Besylate [Norvasc -] 5 mg PO DAILY #0 tablet 02/09/14 Atorvastatin Ca [Lipitor] 10 mg PO HS #0 tablet 02/09/14 Hydrochlorothiazide [Hctz -] 25 mg PO DAILY #0 tablet 02/09/14 Metoprolol Tartrate [Lopressor -] 50 mg PO DAILY #0 tablet 02/09/14 Family Disease History - Family Disease History Family History: Denies Review of Systems - Review of Systems Constitutional: reports: Weakness Eyes: reports: No Symptoms HENT: reports: No Symptoms Neck: reports: No Symptoms Cardiovascular: reports: No Symptoms Respiratory: reports: No Symptoms Gastrointestinal: reports: No Symptoms Genitourinary: reports: No Symptoms Musculoskeletal: reports: Extremity Pain, Joint Pain Integumentary: reports: No Symptoms Neurological: reports: No Symptoms Endocrine: reports: No Symptoms Hematology/Lymphatic: reports: No Symptoms Physical Exam Vital Signs: Vital Signs Temperature 97.9 F 01/21/17 05:53 Pulse Rate 84 01/21/17 05:53 Respiratory Rate 20 01/21/17 05:53 Blood Pressure 137/72 01/21/17 05:53 O2 Sat by Pulse Oximetry (%) 100 01/21/17 01:00 Constitutional: Yes: Calm Eyes: Yes: Conjunctiva Clear HENT: Yes: Atraumatic Neck: Yes: Supple Cardiovascular: Yes: S1, S2 Respiratory: Yes: CTA Bilaterally Gastrointestinal: Yes: Normal Bowel Sounds, Soft Renal/: Yes: WNL. No: CVA Tenderness - Left, CVA Tenderness - Right Musculoskeletal: Yes: Other (right leg pain) Edema: No Neurological: Yes: Oriented Psychiatric: Yes: Oriented Labs: CBC, BMP 01/21/17 05:00 01/21/17 05:00 Laboratory Tests 01/19/17 01/19/17 01/19/17 15:15 15:15 15:45 WBC Hgb 11.3 L D Plt Count Sodium 129 L Potassium Chloride Carbon Dioxide Anion Gap BUN Creatinine 1.6 H Urine Color Ltyellow Urine Appearance Clear Urine pH 6.0 Ur Specific [place] 1.016 Urine Protein 1+ H Urine Glucose (UA) Negative Urine Ketones Negative Urine Blood 2+ H Urine Nitrite Negative Urine Bilirubin Negative 01/20/17 01/20/17 01/21/17 09:45 09:45 05:00 WBC 7.5 Hgb 10.2 L 11.1 L Plt Count 251 Sodium 132 L Potassium Chloride Carbon Dioxide Anion Gap BUN Creatinine 1.5 H Urine Color Urine Appearance Urine pH Ur Specific [place] Urine Protein Urine Glucose (UA) Urine Ketones Urine Blood Urine Nitrite Urine Bilirubin 01/21/17 05:00 WBC Hgb Plt Count Sodium 132 L Potassium 4.0 Chloride 95 L Carbon Dioxide 26 Anion Gap 11 BUN 23 H Creatinine 1.4 H Urine Color Urine Appearance Urine pH Ur Specific [place] Urine Protein Urine Glucose (UA) Urine Ketones Urine Blood Urine Nitrite Urine Bilirubin Laboratory Tests 02/06/14 02/07/14 02/08/14 08:50 06:00 11:55 Creatinine 1.2 0.8 D 1.0 D 02/09/14 06:00 Creatinine 1.0 Imaging - Results Chest X-ray: Report Reviewed Problem List - Problems (1) HLD (hyperlipidemia) Code(s): E78.5 - HYPERLIPIDEMIA, UNSPECIFIED (2) HTN (hypertension) Code(s): I10 - ESSENTIAL (PRIMARY) HYPERTENSION (3) Hyponatremia Code(s): E87.1 - HYPO-OSMOLALITY AND HYPONATREMIA (4) Leg pain, right Code(s): M79.604 - PAIN IN RIGHT LEG (5) Right leg weakness Code(s): R29.898 - OTH SYMPTOMS AND SIGNS INVOLVING THE MUSCULOSKELETAL SYSTEM (6) KIANNA (acute kidney injury) Code(s): N17.9 - ACUTE KIDNEY FAILURE, UNSPECIFIED Assessment/Plan Current Medications Generic Name Dose Route Start Last Admin Trade Name Lucia PRN Reason Stop Dose Admin Amlodipine Besylate 5 mg 01/20/17 10:00 01/20/17 09:49 Norvasc - PO 5 mg DAILY LUCÍA Administration Atorvastatin Calcium 10 mg 01/20/17 22:00 01/20/17 21:37 Lipitor - PO 10 mg HS LUCÍA Administration Ceftriaxone Sodium 1 gm 01/20/17 10:00 01/20/17 09:50 Rocephin 1gm Ivpb (Pre-Docked) IVPB 1 gm DAILY LUCÍA Administration Heparin Sodium (Porcine) 5,000 unit 01/20/17 10:00 01/20/17 21:37 Heparin - SQ 5,000 unit BID LUCÍA Administration Sodium Chloride 1,000 mls @ 75 mls/hr 01/20/17 13:41 01/21/17 03:49 Normal Saline - IV 75 mls/hr ASDIR LUCÍA Administration Metoprolol Tartrate 50 mg 01/20/17 10:00 01/20/17 09:49 Lopressor - PO 50 mg DAILY LUCÍA Administration Impression 1. KIANNA 2. UTI 3. bladder cancer 4. HTN 5. hyponatremia 6. hyperlipidemia Plan - renal function is slowly improving - will order kidney and bladder ultrasound - cont with fluids - stop hctz - follow urine cultures - urology eval - monitor BP Dr Hussein
[2017-01-21] MEDS: cefTRIAXone 1 GM/50 ML BAG (PRE-DOCKED) IVPB SCH (09:40)
[2017-01-21] MEDS: HEPARIN NA (PORCINE) 5,000 UNITS/ML 1ML VIAL SQ SCH ×2 (09:41→21:05)
[2017-01-21] MEDS: METOPROLOL TARTRATE 50 MG TABLET (FP) PO SCH (09:41)
[2017-01-21] MEDS: amLODIPine BESYLATE 5 MG TABLET (FP) PO SCH (09:41)
[2017-01-21] MEDS: SODIUM CHLORIDE 1,000 ML IV SCH (09:42)
--- NOTE | 2017-01-21 14:10 | PN ---
Physical Exam: SUBJECTIVE: Patient seen and examined. Just returned from ultrasound. States he feels well, denies chest pain/discomfort or any other discomfort Asking about estimated time of discharge. OBJECTIVE: No suprapubic discomfort or distention on exam pt able to void without difficulty/ incontinent episodes overnight I spoke with Dr. Vega yeserday (patient's primary physician) and updated him on pt status Dr. Vega in agreement to continue hospitalist service on his patient. Called Dr. Vega today to inform him of ultrasound findings - awaiting call back Vital Signs Period Temp Pulse Resp BP Sys/Askew Pulse Ox Last 24 Hr 97.2 F-98.7 F 77-87 20-21 113-141/46-72 99-100 GENERAL: The patient is awake, alert, and fully oriented, in no acute distress. HEAD: Normal with no signs of trauma. EYES: PERRL, extraocular movements intact, sclera anicteric, conjunctiva clear. No ptosis. ENT: Ears normal, nares patent, oropharynx clear without exudates, moist mucous membranes. NECK: Trachea midline, full range of motion, supple. LUNGS: Breath sounds equal, clear to auscultation bilaterally, no wheezes, no crackles, no accessory muscle use. HEART: Regular rate and rhythm ABDOMEN: Soft, nontender, nondistended, + bowel sounds, no guarding, no rebound , no hepatosplenomegaly, no masses. EXTREMITIES: 2+ pulses, warm, well-perfused, no edema. NEUROLOGICAL: Normal speech,right leg weakness PSYCH: Normal mood, normal affect. SKIN: Warm, dry, normal turgor, no rashes or lesions noted Laboratory Results - last 24 hr 01/21/17 01/21/17 05:00 05:00 WBC 7.5 RBC 3.96 L Hgb 11.1 L Hct 32.5 L MCV 82.1 MCHC 34.2 RDW 14.2 Plt Count 251 MPV 7.4 L Neutrophils % 71.4 Lymphocytes % 15.2 D Monocytes % 10.5 H Eosinophils % 1.9 D Basophils % 1.0 D Sodium 132 L Potassium 4.0 Chloride 95 L Carbon Dioxide 26 Anion Gap 11 BUN 23 H Creatinine 1.4 H Random Glucose 102 D Calcium 8.2 L Active Medications Generic Name Dose Route Start Last Admin Trade Name Freq PRN Reason Stop Dose Admin Amlodipine Besylate 5 mg 01/20/17 10:00 01/21/17 09:41 Norvasc - PO 5 mg DAILY LUCÍA Administration Atorvastatin Calcium 10 mg 01/20/17 22:00 01/20/17 21:37 Lipitor - PO 10 mg HS LUCÍA Administration Ceftriaxone Sodium 1 gm 01/20/17 10:00 01/21/17 09:40 Rocephin 1gm Ivpb (Pre-Docked) IVPB 1 gm DAILY LUCÍA Administration Heparin Sodium (Porcine) 5,000 unit 01/20/17 10:00 01/21/17 09:41 Heparin - SQ 5,000 unit BID LUCÍA Administration Sodium Chloride 1,000 mls @ 60 mls/hr 01/21/17 08:49 01/21/17 09:42 Normal Saline - IV 60 mls/hr ASDIR LUCÍA Administration Metoprolol Tartrate 50 mg 01/20/17 10:00 01/21/17 09:41 Lopressor - PO 50 mg DAILY LUCÍA Administration ASSESSMENT/PLAN: Patient is a 86 year old male with a significant past medical history of hypertension, hyperlipidemia, sciatica, bladder cancer s/p chemotherapy and s/p bladder scrapping. He presented to the ER on 2016 for right leg weakness s/p fall at home where he landed on his buttocks. He reports that he has had worsening right leg pain and weakness x 1 day. Patient's daughter reports that patient lives at home alone with an upstairs bathroom. As per daughter, patient is usually ambulatory with cane and independent with all ADLs. Patient continues to deny fever, chills, cough, shortness of breath or any other discomfort. During my exam, he was laying in the bed, in no acute distress. Imagin01/19/2017 - Xray R- Hip & Pelvis: No radiographic evidence of neoplastic disease or fracture is identified 01/19/2017 - CT/Lumbar spine ct w/o contrast:No evidence of osseous neoplastic disease. Prominent multilevel degenerative disc and facet joint changes are noted. In comparison with the abd/pelvic ct of 10/12/2007, interval development of the focal soft tissue thickening along the right post aspect of the partially imaged bladder wall consistent with known mets disease. Development of right sided hydroureteronephrosis is probably moderate. 01/19/2017 - UA: +protein, + leukocyte esterase, WBC 65 01/21/2017 - kidney/bladder ultrasound: (1) moderate-severe rt sided hydronephrosis, (2) ill defined rt post. bladder mass likely malignant (5.8 x 2.1cm), urinary retention of 273cc (3) prostatic enlargement. Muscular/Skeletal Right Leg Pain/weakness - s/p fall Assessment/Plan: Xray of right leg with no evidence of neoplastic disease or fracture CT/Lumbar spine ct w/o contrast:No evidence of osseous neoplastic disease. Prominent multilevel degenerative disc and facet joint changes are noted Will need physical therapy which has been requested Possible short term rehab - if patient agrees, social work following Fall risk ID: Urinary Tract Infection - acute Assessment/Plan: UA: +protein, + leukocyte esterase, WBC 65 + Leukocytosis on admission Zosyn given in ED, Started on Rocephin 1 gram on 01/20/2017 Urine cultures contaminated: reordered urine culture Blood cultures pending WBC within normal limits monitor CBC, vitals signs remains afebrile Cardiology: Hypertension - chronic Assessment/Plan: On Norvasc and Metoprolol BP @ goal, monitor : Acute Kidney Injury Assessment/Plan: on CT/Pelvis shows development of right sided hydroureteronephrosis-moderate kidney/bladder ultrasound 01/21:mod-severe rt sided hydro, rt post. bladder mass likely malignant, urinary retention of 273cc, prostatic enlargement. Dr. Culp/Jov[facility] following Monitor I & O BUN/Creat: 23/1.4 today, baseline appears to be between 1.0~1.2 Will have urology evaluate as he had a recent cysto 10/2016 Hyponatremia - likely related to dehydration Assessment/Plan: hyponatremia improving with NS129> 132 Continue NS @ 75cc/hr Will continue to hold HCTZ monitor BMP F.E.N. Fluids: NS @ 75cc/hr Electrolytes: hyponatremia improving on IV fluids now 132 Nutrition: reported to have poor PO intake, will order Ensure with meals Disposition: Requires inpatient hospitalization. Will discharge back to PCP Dr. Silvia desai on d/c. Thank you for this opportunity. Patient is Full Code. Visit type - Emergency Visit Emergency Visit: Yes ED Registration Date: 01/20/17 Care time: The patient presented to the Emergency Department on the above date and was hospitalized for further evaluation of their emergent condition. - New Patient This patient is new to me today: No - Critical Care Critical Care patient: No - Discharge Referral Referred to [facility] No
--- NOTE | 2017-01-21 16:09 | CONSULT ---
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 He is admitted for another reason. Minimal hematuria with incontinence. - History Source History Provided By: Patient, Medical Record Limitations to Obtaining History: No Limitations - Past Medical History Cardio/Vascular: Yes: HTN, Hyperlipdemia Renal/: Yes: Cancer, Hematuria Musculoskeletal: Yes: Other (sciatica) - Past Surgical History Additional Surgical History: cystoscopy - Alcohol/Substance Use Hx Alcohol Use: No - Smoking History Smoking history: Never smoked Have you smoked in the past 12 months: No Aproximately how many cigarettes per day: 0 If you are a former smoker, when did you quit?: 12YRS AGO Home Medications - Allergies Allergies/Adverse Reactions: Allergies Allergy/AdvReac Type Severity Reaction Status Date / Time No Known Drug Allergies Allergy Verified 01/19/17 14:59 - Home Medications Home Medications: Ambulatory Orders Amlodipine Besylate [Norvasc -] 5 mg PO DAILY #0 tablet 02/09/14 Atorvastatin Ca [Lipitor] 10 mg PO HS #0 tablet 02/09/14 Hydrochlorothiazide [Hctz -] 25 mg PO DAILY #0 tablet 02/09/14 Metoprolol Tartrate [Lopressor -] 50 mg PO DAILY #0 tablet 02/09/14 Physical Exam Vital Signs: Vital Signs Temperature 97.3 F L 01/21/17 14:34 Pulse Rate 77 01/21/17 14:34 Respiratory Rate 20 01/21/17 14:34 Blood Pressure 134/69 01/21/17 14:34 O2 Sat by Pulse Oximetry (%) 99 01/21/17 09:00 Constitutional: Yes: Well Nourished, No Distress, Calm Gastrointestinal: Yes: WNL, Normal Bowel Sounds Renal/: No: Bladder Distention, CVA Tenderness - Left, CVA Tenderness - Right , Hebert Present, Hematuria Imaging - Results Ultrasound: Report Reviewed Problem List - Problems (1) Bladder cancer Assessment/Plan: 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 Plan for nephrostomy tube Code(s): C67.9 - MALIGNANT NEOPLASM OF BLADDER, UNSPECIFIED
[2017-01-21] MEDS: ATORVASTATIN CA 10 MG TABLET (FP) PO SCH (21:05)
[2017-01-21] MEDS ORDERED: INSULIN (NOVOLOG) ASPART 100 UNITS/ML 10ML VIAL ONE (21:20)
[2017-01-22 07:12] LABS: BASOPHIL 0.6 % (0-2.0); EOSINOPHIL 1.6 % (0-4.5); MCH 27.8 pg (25.7-33.7); MCHC 33.7 g/dl (32.0-35.9); MEAN CELL VOLUME 82.6 fl (80-96); MEAN PLT VOLUME 7.1 fl (7.5-11.1); NEUTROPHILS 77.7 % (42.8-82.8); PLATELET COUNT 247 K/MM3 (134-434); RDW 14.1 % (11.9-15.9); WHITE BLOOD COUNT 7.3 K/mm3 (4.0-10.0)
[2017-01-22 07:36] LABS: ALBUMIN 3.1 g/dl (3.4-5.0); CALCIUM 8.4 mg/dL (8.5-10.1); CREATININE 1.4 mg/dL (0.7-1.3)
[2017-01-22 07:38] LABS: BILIRUBIN,TOTAL 0.5 mg/dL (0.2-1.0); TOT PROT 5.8 g/dl (6.4-8.2)
[2017-01-22] MEDS: SODIUM CHLORIDE 1,000 ML IV SCH ×2 (09:15→21:34)
--- NOTE | 2017-01-22 09:38 | PN ---
Progress Note (short form) - Note Progress Note: Subjective: The patient was seen and examined at the bedside, he was observed ambulating with assist x1 from the bathroom. He reports feeling "good" today. Current Medications Generic Name Dose Route Start Last Admin Trade Name Lucia PRN Reason Stop Dose Admin Amlodipine Besylate 5 mg 01/20/17 10:00 01/21/17 09:41 Norvasc - PO 5 mg DAILY LUCÍA Administration Atorvastatin Calcium 10 mg 01/20/17 22:00 01/21/17 21:05 Lipitor - PO 10 mg HS LUCÍA Administration Ceftriaxone Sodium 1 gm 01/20/17 10:00 01/21/17 09:40 Rocephin 1gm Ivpb (Pre-Docked) IVPB 1 gm DAILY LUCÍA Administration Heparin Sodium (Porcine) 5,000 unit 01/20/17 10:00 01/21/17 21:05 Heparin - SQ 5,000 unit BID LUCÍA Administration Sodium Chloride 1,000 mls @ 60 mls/hr 01/21/17 08:49 01/21/17 09:42 Normal Saline - IV 60 mls/hr ASDIR LUCÍA Administration Metoprolol Tartrate 50 mg 01/20/17 10:00 01/21/17 09:41 Lopressor - PO 50 mg DAILY LUCÍA Administration Objective: Vital Signs Period Temp Pulse Resp BP Sys/Askew Pulse Ox Last 24 Hr 97.3 F-98.1 F 76-97 20-20 129-159/68-80 99-99 Physical Exam: General: NAD Lungs: CTA bilaterally Heart: RRR, S1S2 Abd: Soft, non-tender, non-distended. Normoactive bowel sounds Ext: Warm, well-perfused. 2+ DP/PT bilaterally Neuro: No focal deficits CBCD WBC 7.3 K/mm3 (4.0-10.0) 01/22/17 06:00 RBC 3.83 M/mm3 (4.00-5.60) L 01/22/17 06:00 Hgb 10.7 GM/dL (11.7-16.9) L 01/22/17 06:00 Hct 31.6 % (35.4-49) L 01/22/17 06:00 MCV 82.6 fl (80-96) 01/22/17 06:00 MCHC 33.7 g/dl (32.0-35.9) 01/22/17 06:00 RDW 14.1 % (11.9-15.9) 01/22/17 06:00 Plt Count 247 K/MM3 (134-434) 01/22/17 06:00 MPV 7.1 fl (7.5-11.1) L 01/22/17 06:00 CMP Sodium 134 mmol/L (136-145) L 01/22/17 06:00 Potassium 4.4 mmol/L (3.5-5.1) 01/22/17 06:00 Chloride 97 mmol/L (98-107) L 01/22/17 06:00 Carbon Dioxide 27 mmol/L (21-32) 01/22/17 06:00 Anion Gap 10 (8-16) 01/22/17 06:00 BUN 19 mg/dL (7-18) H 01/22/17 06:00 Creatinine 1.4 mg/dL (0.7-1.3) H 01/22/17 06:00 Creat Clearance w eGFR 47.83 (>60) 01/22/17 06:00 Random Glucose 100 mg/dL (74-106) 01/22/17 06:00 Calcium 8.4 mg/dL (8.5-10.1) L 01/22/17 06:00 Total Bilirubin 0.5 mg/dL (0.2-1.0) D 01/22/17 06:00 AST 9 U/L (15-37) L 01/22/17 06:00 ALT 11 U/L (12-78) L D 01/22/17 06:00 Alkaline Phosphatase 90 U/L (45-117) 01/22/17 06:00 Total Protein 5.8 g/dl (6.4-8.2) L 01/22/17 06:00 Albumin 3.1 g/dl (3.4-5.0) L 01/22/17 06:00 Microbiology 01/20/17 17:00 Blood - Peripheral Venous Blood Culture - Preliminary NO GROWTH OBTAINED AFTER 24 HOURS, INCUBATION TO CONTINUE FOR 4 DAYS. 01/20/17 17:00 Blood - Peripheral Venous Blood Culture - Preliminary NO GROWTH OBTAINED AFTER 24 HOURS, INCUBATION TO CONTINUE FOR 4 DAYS. 01/19/17 21:25 Urine - Urine Clean Catch Urine Culture - Final Contaminated: Please Repeat Imaging: Chest X-ray 01/19: no acute pathology Hip/pelvis x-ray 01/19: no radiographic evidence of neoplastic disease or fracture Lumbar CT 01/19: No CT evidence of osseous neoplastic disease. Prominent multilevel degenerative disc and facet joint changes. 0.7cm soft tissue density is seen along the right posterolateral border of the L4-L5 disc which may represent an extruded disc herniation vs. focal degenerative ligamentous hypertrophy. Mulilevel degenerative canal stenosis. Probable impingement upon the right L5-S1 nerve roots Renal bladder ultrasound 01/21: Moderately severe right sided hydronephrosis. Ill defined right posterior bladder mass strongly suspicious for malignancy, urinary retention. Prostatic enlargement. Assessment: This is an 86 year old male with PMHx of hypertension, hyperlipidemia, sciatica, bladder Ca (x 1 year, chemo completed), s/p bladder scrapping x 6 weeks who presented to the ED with right leg weakness and pain, unable to ambulate x1 day. Plan: 1) Ortho: Right leg weakness/pain - Unsteady gait observed - Walked 30 feet with PT - Lumbar CT with severe canal stenosis, probably impingement upon the right L5- S1 nerve root - Will follow-up neurosurgery consult - F/u pain management consult 2) : Severe right sided hydronephrosis - Plan for nephrostomy tube on Tuesday - Appreciate urology consult KIANNA - Continues to improve 1.6->1.4 - Continue to hold HCTZ - Continue IV fluids - Appreciate nephrology consult Bladder cancer - F/u outpatient oncologist upon discharge 3) ID: UTI - Awaiting urine culture - Continue Ceftriaxone - WBC wnl, remains afebrile 4) Cardiology: HTN - Hold HCTZ 2/2 KIANNA - Continue Lopressor - Continue Norvasc Hyperlipidemia - Continue Lipitor 5) F/E/N: - Hyponatremia: continues to improve - Sodium controlled diet, Ensure - Poor appetite, will start Remeron - Monitor electrolytes 6) Prophylaxis: - OOB with assistance - Heparin 5,000u sq bid 7) Dispo: - Requires continued inpatient care CODE STATUS: FULL CODE Visit type - Emergency Visit Emergency Visit: Yes ED Registration Date: 01/21/17 Care time: The patient presented to the Emergency Department on the above date and was hospitalized for further evaluation of their emergent condition. - New Patient This patient is new to me today: Yes Date on this admission: 01/22/17 - Critical Care Critical Care patient: No
[2017-01-22] MEDS: amLODIPine BESYLATE 5 MG TABLET (FP) PO SCH (10:17)
[2017-01-22] MEDS: METOPROLOL TARTRATE 50 MG TABLET (FP) PO SCH (10:17)
[2017-01-22] MEDS: HEPARIN NA (PORCINE) 5,000 UNITS/ML 1ML VIAL SQ SCH ×2 (10:17→21:35)
[2017-01-22] MEDS: cefTRIAXone 1 GM/50 ML BAG (PRE-DOCKED) IVPB SCH (10:17)
--- NOTE | 2017-01-22 10:39 | PN ---
Progress Note (short form) - Note Progress Note: RENAL Pleasant elderly gentleman seen while sitting on chair says he is here because he had weakness of his right leg has bladder cancer and has a hydro on right he appears comfortable making urine Last Vital Signs Temp Pulse Resp BP Pulse Ox 97.6 F 76 20 129/80 99 01/22/17 05:59 01/22/17 05:59 01/22/17 05:59 01/22/17 05:59 01/22/17 01:00 lungs decreased breath sounds cvs s1s2 occasionally irregular abd soft ext no edema neuro a+ox3 skin no obvious rash or lesions CBC, BMP 01/22/17 06:00 01/22/17 06:00 Current Medications Generic Name Dose Route Start Last Admin Trade Name Lucia PRN Reason Stop Dose Admin Amlodipine Besylate 5 mg 01/20/17 10:00 01/22/17 10:17 Norvasc - PO 5 mg DAILY LUCÍA Administration Atorvastatin Calcium 10 mg 01/20/17 22:00 01/21/17 21:05 Lipitor - PO 10 mg HS LUCÍA Administration Ceftriaxone Sodium 1 gm 01/20/17 10:00 01/22/17 10:17 Rocephin 1gm Ivpb (Pre-Docked) IVPB 1 gm DAILY LUCÍA Administration Heparin Sodium (Porcine) 5,000 unit 01/20/17 10:00 01/22/17 10:17 Heparin - SQ 5,000 unit BID LUCAÍ Administration Sodium Chloride 1,000 mls @ 60 mls/hr 01/21/17 08:49 01/22/17 09:15 Normal Saline - IV 60 mls/hr ASDIR LUCÍA Administration Metoprolol Tartrate 50 mg 01/20/17 10:00 01/22/17 10:17 Lopressor - PO 50 mg DAILY LUCÍA Administration Multivitamins/Minerals/Vitamin C 1 tab 01/23/17 10:00 Tab-A-Vit - PO DAILY LUCÍA Impression 1. KIANNA 2. UTI 3. bladder cancer with hydronephrosis- high grade with invasion into muscularis propria 4. HTN 5. hyponatremia 6. hyperlipidemia 7. RLE weakness with out CT evidence of mets to lumbar spine Plan - renal function is slowly improving - urology note read and appreciated - agree with nephrostomy - avoid nephrotoxins - continue antibiotics and follow culture MV
--- NOTE | 2017-01-22 13:20 | PN ---
Progress Note (short form) - Note Progress Note: NEUROSURGERY CONSULT DICTATED Chart reviewed History obtained CT reviewed H/o hypertension, Hyperlipidemia, Bladder Ca presents with right leg weakness, pain, non-ambulatory x 1 day. Patient states he was ambulating with a cane, falling because of pain and subjective weakness x1. Patient denies LOC. Patient denies fever, chills, cough, SOB, CP, and prior sciatica. No new B/B incontinence. PE; AF, VSS General- unremarkable; CV-RR; Lungs- CTA; Abd- benign; Ext- varicose veins/ chronic venous changes B LE A/A/Ox3 CN- intact; Motor- 4+ B LE except R IP/Quad 4/5; Sensation- intact LT, decreased distal vibration; DTR- hyporeflexia B; Negative SLR B to 60 degrees WBC 7.3; alk phos 90 CT LS spine- extensive spondylosis, marked DDD; moderate to marked stenosis L3- 4 and L4-5; possible small focal HNP R L4-5 Lumbar spinal stenosis with small focal R L4-5 HNP and radiculopathy; HTN; bladder CA Trial of neurontin/PT/NSAIDS MRI LS spine without then EPSI if persistent pain The above d/w patient and daughter at bedside
--- NOTE | 2017-01-22 14:08 | CONS ---
DATE OF CONSULTATION: 01/22/2017 CHIEF COMPLAINT: Right lower extremity radiculopathy. HISTORY OF PRESENT ILLNESS: This patient is an 86-year-old right-handed male with a history of bladder cancer status post chemotherapy, hypertension, hypercholesterolemia, who presented with approximately 1 week history of right- sided back pain and pain radiating down to the right anterior thigh. There is also some subjective weakness. When he was walking the other day he fell to the ground and landed on his buttocks. He denies any left lower extremity symptoms. Even though he has some subjective weakness, the patient stated that the main reason why he could not ambulate was because of the pain. He has no leg numbness or tingling. There is no prior episode of the pain. This started when he walked home from a friends house next door about 1 week ago. There is no fever or chills. There is no history of metastatic disease from the bladder CA by report. PAST MEDICAL HISTORY: Significant for hypertension, hypercholesterolemia, bladder CA. CURRENT MEDICATIONS: Ceftriaxone, subcutaneous heparin, Remeron, Lopressor, Norvasc, Lipitor and vitamin C as well as multivitamin. ALLERGIES: No known drug allergies. FAMILY HISTORY: Noncontributory. SOCIAL HISTORY: The patient does not smoke. He drinks alcohol socially. He lives at home. REVIEW OF SYSTEMS: Otherwise negative for other major cardiovascular, pulmonary , gastrointestinal, genitourinary, immunologic, neurologic, or psychological problems except for the above. PHYSICAL EXAMINATION: Vital signs: Temperature 97.6, blood pressure 129/80, pulse rate of 76, O2 saturation 99% on room air. HEENT: Examination shows him to be normocephalic and atraumatic, anicteric. Neck: Supple with no carotid bruits. Coronary: Regular rhythm. Lungs: Clear bilaterally. Abdomen: Benign. Extremities: Varicose veins and chronic venous changes. There are no obvious signs of DVT. Neurologic: He is awake, alert and oriented x3. Cranial nerves 2-12 are intact. Motor examination shows 4+/5 strength in bilateral lower extremities. Right quadriceps is 4/5 as is the right iliopsoas. Sensory examination is intact to light touch and decrease in some vibratory sensation. Deep tendon reflexes are hyporeflexic throughout. There is no pathological long tract sign. Gait is not tested for safety reasons. Examination of the lower back shows minimal tenderness in the lumbosacral junction on the right. He has negative straight leg raising at 60 degrees bilaterally. LABORATORY DATA: Sodium 134, potassium 4.4, BUN 19, creatinine 1.4, lab 3.1, alkaline phosphatase 90. AST 9, ALT 11. White blood cell count 7.3, hemoglobin 10.7, platelet count 247,000. INR is 1.11. Urinalysis shows 1+ leukocyte esterase with 65 WBC and [address] scan of the lumbar spine demonstrated multilevel marked lumbar degenerative disk disease as well as spondylosis. There is moderate to marked canal and lateral recess stenosis at L3-4 and L4-5. There is a small lesion at the posterolateral aspect of the spinal canal on the right at L4-5 disk space level consistent with a small disk herniation. IMPRESSION: 1. Multiple-level lumbar degenerative disk disease with small right L4-5 disk herniation and right L4-5 radiculopathy. 2. Lumbar spondylosis and osteoarthritis. 3. Hypertension. 4. Bladder cancer. 5. Urinary tract infection. RECOMMENDATIONS: This patient presents with about a 1-week history of right- sided sciatica and some subjective weakness. On my examination today, his motor strength is generally symmetric. He is slightly weaker in the left iliopsoas and quadriceps with approximately 4/5 strength. Overall strength is 4+/5. CT scan demonstrated multilevel stenosis with a small disk herniation on the right side of L4-5 which likely could account for some of his symptomatology. A course of physical therapy should be considered for strengthening, modalities, and stabilization exercises for the lower back. I will start the patient on gabapentin 100 mg p.o. t.i.d. for his radiculopathy. The appropriateness of antiinflammatory medication in the face of his bladder CA and the current urinary tract infection will be left to the professional discretion of his treating medical team. If his symptoms persist, an MRI of the lumbar spine without contrast could be considered prior to considering pain management injection such as ambulatory steroid injection. MRI with contrast would be preferred but patient has borderline renal function. Presently, the patient states he is not in that much pain, and more aggressive treatment is not recommended at this time given his age and underlying medical conditions. All questions were answered at bedside. The patient's daughter was present during the consultation. WILSON ZURITA M.D. [id number] MTDD
[2017-01-22] MEDS: GABAPENTIN 100 MG CAPSULE (FP) PO SCH ×2 (14:44→21:36)
[2017-01-22] MEDS: ATORVASTATIN CA 10 MG TABLET (FP) PO SCH (21:35)
[2017-01-22] MEDS: MIRTAZAPINE 15 MG TABLET (FP) PO SCH (21:36)
[2017-01-23] MEDS: GABAPENTIN 100 MG CAPSULE (FP) PO SCH ×3 (06:08→21:09)
[2017-01-23 07:20] LABS: BASOPHIL 0.8 % (0-2.0); EOSINOPHIL 1.8 % (0-4.5); MCH 28.3 pg (25.7-33.7); MCHC 34.2 g/dl (32.0-35.9); MEAN CELL VOLUME 82.7 fl (80-96); MEAN PLT VOLUME 7.1 fl (7.5-11.1); NEUTROPHILS 77.9 % (42.8-82.8); PLATELET COUNT 261 K/MM3 (134-434); RDW 14.2 % (11.9-15.9); WHITE BLOOD COUNT 8.4 K/mm3 (4.0-10.0)
[2017-01-23 07:49] LABS: CALCIUM 8.5 mg/dL (8.5-10.1)
[2017-01-23 07:52] LABS: BILIRUBIN,TOTAL 0.5 mg/dL (0.2-1.0); CREATININE 1.3 mg/dL (0.7-1.3); TOT PROT 5.9 g/dl (6.4-8.2)
--- NOTE | 2017-01-23 09:49 | PN ---
Physical Exam: SUBJECTIVE: Patient seen and examined. States he came to the hospital because of giveway weakness in his right leg, but ambulated yesterday to [facility] with walker. Denies pain. Denies f/s/c. Denies n/v/d/c. OBJECTIVE: Vital Signs Period Temp Pulse Resp BP Sys/Askew Pulse Ox Last 24 Hr 97.6 F-98.8 F 76-88 18-20 134-149/60-72 GENERAL: The patient is awake, alert, and fully oriented, in no acute distress. HEAD: Normal with no signs of trauma. EYES: PERRL, extraocular movements intact, sclera anicteric, conjunctiva clear. No ptosis. LUNGS: Breath sounds equal, clear to auscultation bilaterally, no wheezes, no crackles, no accessory muscle use. HEART: Regular rate and rhythm, S1, S2, II/ systolic murmur, no rub or gallop. ABDOMEN: Soft, nontender, nondistended, normoactive bowel sounds, no guarding, no rebound EXTREMITIES: 2+ pulses, warm, well-perfused, no edema. NEUROLOGICAL: Cranial nerves II through XII grossly intact. Normal speech, gait not observed. Laboratory Results - last 24 hr 01/23/17 01/23/17 06:00 06:00 WBC 8.4 RBC 4.05 Hgb 11.5 L Hct 33.5 L MCV 82.7 MCHC 34.2 RDW 14.2 Plt Count 261 MPV 7.1 L Neutrophils % 77.9 Lymphocytes % 11.1 Monocytes % 8.4 Eosinophils % 1.8 Basophils % 0.8 Sodium 135 L Potassium 4.3 Chloride 98 Carbon Dioxide 27 Anion Gap 10 BUN 22 H Creatinine 1.3 Creat Clearance w eGFR 52.10 Random Glucose 92 Calcium 8.5 Total Bilirubin 0.5 AST 10 L ALT 12 Alkaline Phosphatase 101 Total Protein 5.9 L Albumin 3.0 L Active Medications Generic Name Dose Route Start Last Admin Trade Name Freq PRN Reason Stop Dose Admin Amlodipine Besylate 5 mg 01/20/17 10:00 01/22/17 10:17 Norvasc - PO 5 mg DAILY LUCÍA Administration Atorvastatin Calcium 10 mg 01/20/17 22:00 01/22/17 21:35 Lipitor - PO 10 mg HS LUCÍA Administration Ceftriaxone Sodium 1 gm 01/20/17 10:00 01/22/17 10:17 Rocephin 1gm Ivpb (Pre-Docked) IVPB 1 gm DAILY LUCÍA Administration Gabapentin 100 mg 01/22/17 14:00 01/23/17 06:08 Neurontin - PO 100 mg TID LUCÍA Administration Heparin Sodium (Porcine) 5,000 unit 01/20/17 10:00 01/22/17 21:35 Heparin - SQ 5,000 unit BID LUCÍA Administration Sodium Chloride 1,000 mls @ 60 mls/hr 01/21/17 08:49 01/22/17 21:34 Normal Saline - IV 60 mls/hr ASDIR LUCÍA Administration Metoprolol Tartrate 50 mg 01/20/17 10:00 01/22/17 10:17 Lopressor - PO 50 mg DAILY LUCÍA Administration Mirtazapine 7.5 mg 01/22/17 22:00 01/22/17 21:36 Remeron - PO 7.5 mg HS LUCÍA Administration Multivitamins/Minerals/Vitamin C 1 tab 01/23/17 10:00 Tab-A-Vit - PO DAILY LUCÍA ASSESSMENT/PLAN 86 year-old male with a PMH of HTN, HLD, lumbar spinal stenosis with radiculopathy, bladder cancer with associated hydronephrosis s/p chemo s/p bladder scraping x 6 weeks. Presented to the ED with RLE pain and weakness. Moderately severe right hydronephrosis secondary to bladder cancer with large bladder mass Acute kidney injury --Imaging shows 5.8 x 2.1cm right posterior bladder mass, moderately severe right hydroureteronephrosis --renal function improving, Cr 1.6-->1.3 (baseline 1.0) --nephrostomy tube placement scheduled for tomorrow Urinary tract infection --pyuria on UA --continue empiric ceftriaxone --culture pending Lumbar spinal stenosis Right L4-L5 HNP with radiculopathy --seen and evaluated by neurosurgery --continue Gabapentin, daily PT --MRI LSS without contrast ordered --may need EPSI if persistent pain Hypertension --continue amlodipine, metoprolol Hyperlipidemia --continue Lipitor F/E/N Fluids: PO intake adequate Electrolytes: replete as indicated Nutrition: low sodium; NPO after midnight DVT prophylaxis: subq heparin PT evaluation Daily PT Dispo: continues to require inpatient care. Full Code. Visit type - Emergency Visit Emergency Visit: Yes ED Registration Date: 01/21/17 Care time: The patient presented to the Emergency Department on the above date and was hospitalized for further evaluation of their emergent condition. - New Patient This patient is new to me today: Yes Date on this admission: 01/23/17 - Critical Care Critical Care patient: No
--- NOTE | 2017-01-23 09:50 | PN ---
Progress Note (short form) - Note Progress Note: NEUROSURGERY Overall pain better Walked with walker/family down to [facility] yesterday PE: Tmax 98.4, AF, VSS General- unremarkable; CV-RR; Lungs- CTA; Abd- benign; Ext- varicose veins/ chronic venous changes B LE A/A/Ox3 CN- intact; Motor- 4+ B LE except R IP/Quad 4/5; Sensation- intact LT, decreased distal vibration; DTR- hyporeflexia B; Negative SLR B to [address] LS spine- extensive spondylosis, marked DDD; moderate to marked stenosis L3- 4 and L4-5; possible small focal HNP R L4-5 Lumbar spinal stenosis with small focal R L4-5 HNP and radiculopathy; HTN; bladder CA Cont neurontin/PT/NSAIDS No neurosurgical intervention recommended give age and other medical- comorbidities If persistent pain, MRI LS spine without migue then consider EPSI The above d/w patient
[2017-01-23] MEDS ORDERED: PT OWN MED DRAWER 7, Y5N ONE ×2 (10:25→20:02)
[2017-01-23] MEDS: MULTIVITAMINS (DAILY MVI) TABLET (FP) PO SCH (10:26)
[2017-01-23] MEDS: cefTRIAXone 1 GM/50 ML BAG (PRE-DOCKED) IVPB SCH (10:26)
[2017-01-23] MEDS: amLODIPine BESYLATE 5 MG TABLET (FP) PO SCH (10:27)
[2017-01-23] MEDS: HEPARIN NA (PORCINE) 5,000 UNITS/ML 1ML VIAL SQ SCH (10:27)
[2017-01-23] MEDS: METOPROLOL TARTRATE 50 MG TABLET (FP) PO SCH (10:27)
--- NOTE | 2017-01-23 11:29 | PN ---
Progress Note (short form) - Note Progress Note: RENAL Pleasant elderly gentleman seen while sitting on chair says he is here because he had weakness of his right leg has bladder cancer and has a hydro on right he appears comfortable making urine says he did notsleep well last night Last Vital Signs Temp Pulse Resp BP Pulse Ox 98 F 81 20 145/72 99 01/23/17 06:00 01/23/17 06:00 01/23/17 09:00 01/23/17 06:00 01/22/17 01:00 lungs decreased breath sounds cvs s1s2 occasionally irregular abd soft ext no edema neuro a+ox3 skin no obvious rash or lesions Current Medications Generic Name Dose Route Start Last Admin Trade Name Freq PRN Reason Stop Dose Admin Amlodipine Besylate 5 mg 01/20/17 10:00 01/23/17 10:27 Norvasc - PO 5 mg DAILY LUCÍA Administration Atorvastatin Calcium 10 mg 01/20/17 22:00 01/22/17 21:35 Lipitor - PO 10 mg HS LUCÍA Administration Ceftriaxone Sodium 1 gm 01/20/17 10:00 01/23/17 10:26 Rocephin 1gm Ivpb (Pre-Docked) IVPB 1 gm DAILY LUCÍA Administration Gabapentin 100 mg 01/22/17 14:00 01/23/17 06:08 Neurontin - PO 100 mg TID LUCÍA Administration Heparin Sodium (Porcine) 5,000 unit 01/20/17 10:00 01/23/17 10:27 Heparin - SQ 5,000 unit BID LUCÍA Administration Sodium Chloride 1,000 mls @ 60 mls/hr 01/21/17 08:49 01/22/17 21:34 Normal Saline - IV 60 mls/hr ASDIR LUCÍA Administration Metoprolol Tartrate 50 mg 01/20/17 10:00 01/23/17 10:27 Lopressor - PO 50 mg DAILY LUCÍA Administration Mirtazapine 7.5 mg 01/22/17 22:00 01/22/17 21:36 Remeron - PO 7.5 mg HS LUCÍA Administration Multivitamins/Minerals/Vitamin C 1 tab 01/23/17 10:00 01/23/17 10:26 Tab-A-Vit - PO 1 tab DAILY LUCÍA Administration CBC, BMP 01/23/17 06:00 01/23/17 06:00 Impression 1. KIANNA- improved 2. UTI 3. bladder cancer with hydronephrosis- high grade with invasion into muscularis propria 4. HTN 5. hyponatremia 6. hyperlipidemia 7. RLE weakness with out CT evidence of mets to lumbar spine Plan - renal function is slowly improving - urology note read and appreciated - agree with nephrostomy - avoid nephrotoxins MV
[2017-01-23] MEDS: SODIUM CHLORIDE 1,000 ML IV SCH (14:10)
[2017-01-23] MEDS: ATORVASTATIN CA 10 MG TABLET (FP) PO SCH (21:09)
[2017-01-23] MEDS: MIRTAZAPINE 15 MG TABLET (FP) PO SCH (21:10)
[2017-01-24] MEDS: SODIUM CHLORIDE 1,000 ML IV SCH ×2 (03:30→08:30)
[2017-01-24] MEDS: GABAPENTIN 100 MG CAPSULE (FP) PO SCH ×3 (05:58→22:10)
--- NOTE | 2017-01-24 09:19 | PN ---
Progress Note (short form) - Note Progress Note: NEUROSURGERY Overall pain better Awaiting procedure, NPO PE: AF, VSS General- unremarkable; CV-RR; Lungs- CTA; Abd- benign; Ext- varicose veins/ chronic venous changes B LE A/A/Ox3 CN- intact; Motor- 4+ B LE except R IP/Quad 4/5; Sensation- intact LT, decreased distal vibration; DTR- hyporeflexia B; Negative SLR B to [address] LS spine- extensive spondylosis, multilevel marked DDD; moderate to marked stenosis L3-4 and L4-5; possible small focal HNP R L4-5; no obvious mets Lumbar spinal stenosis with small focal R L4-5 HNP and radiculopathy; HTN; bladder CA Cont neurontin/PT Outpatient PT as well No neurosurgical intervention recommended give age and other medical co- morbidities If persistent pain, MRI LS spine without migue then consider EPSI for sciatica The above d/w patient at bedside
[2017-01-24 09:45] LABS: BASOPHIL 0.7 % (0-2.0); EOSINOPHIL 2.4 % (0-4.5); MCH 28.1 pg (25.7-33.7); MEAN CELL VOLUME 82.7 fl (80-96); MEAN PLT VOLUME 6.9 fl (7.5-11.1); PLATELET COUNT 252 K/MM3 (134-434); RDW 13.9 % (11.9-15.9); WHITE BLOOD COUNT 8.1 K/mm3 (4.0-10.0)
[2017-01-24 10:30] LABS: BILIRUBIN,TOTAL 0.4 mg/dL (0.2-1.0); CALCIUM 8.5 mg/dL (8.5-10.1); CREATININE 1.4 mg/dL (0.7-1.3); TOT PROT 5.8 g/dl (6.4-8.2)
[2017-01-24] MEDS: cefTRIAXone 1 GM/50 ML BAG (PRE-DOCKED) IVPB SCH (12:23)
[2017-01-24] MEDS: METOPROLOL TARTRATE 50 MG TABLET (FP) PO SCH (12:25)
[2017-01-24] MEDS: amLODIPine BESYLATE 5 MG TABLET (FP) PO SCH (12:25)
[2017-01-24] MEDS: MULTIVITAMINS (DAILY MVI) TABLET (FP) PO SCH (12:26)
--- NOTE | 2017-01-24 13:15 | PN ---
Physical Exam: SUBJECTIVE: Patient seen and examined. He has a right nephrostomy tube placed today. States he feels well, denies pain. OBJECTIVE: Right nephrostomy tube placed today Spoke to patient about his bladder cancer and possible treatment options Pt does not want any radical procedures. He states "I want to keep my bladder for as long as I can". He asked to speak to an oncologist regarding other options. Vital Signs Period Temp Pulse Resp BP Sys/Askew Pulse Ox Last 24 Hr 97.7 F-98.3 F 65-102 16-20 115-167/56-77 100-100 GENERAL: The patient is awake, alert, and fully oriented, in no acute distress. HEAD: Normal with no signs of trauma. EYES: PERRL, extraocular movements intact, sclera anicteric, conjunctiva clear. No ptosis. ENT: Ears normal, nares patent, oropharynx clear without exudates, moist mucous membranes. NECK: Trachea midline, full range of motion, supple. LUNGS: Breath sounds equal, clear to auscultation bilaterally, no wheezes, no crackles, no accessory muscle use. HEART: Regular rate and rhythm ABDOMEN: Soft, nontender, nondistended, + bowel sounds, no guarding, no rebound , no hepatosplenomegaly, no masses. EXTREMITIES: 2+ pulses, warm, well-perfused, no edema. NEUROLOGICAL: Normal speech,right leg weakness PSYCH: Normal mood, normal affect. SKIN: left nephrostomy tube placed today, dressing c/d/i. hematuria, no clots seen Laboratory Results - last 24 hr 01/24/17 01/24/17 09:20 09:20 WBC 8.1 RBC 3.85 L Hgb 10.8 L Hct 31.8 L MCV 82.7 MCHC 34.0 RDW 13.9 Plt Count 252 MPV 6.9 L Neutrophils % 77.0 Lymphocytes % 10.8 Monocytes % 9.1 Eosinophils % 2.4 Basophils % 0.7 Sodium 136 Potassium 4.7 Chloride 100 Carbon Dioxide 26 Anion Gap 10 BUN 25 H Creatinine 1.4 H Creat Clearance w eGFR 47.83 Random Glucose 96 Calcium 8.5 Total Bilirubin 0.4 AST 13 L D ALT 16 D Alkaline Phosphatase 106 Total Protein 5.8 L Albumin 3.0 L Active Medications Generic Name Dose Route Start Last Admin Trade Name Freq PRN Reason Stop Dose Admin Amlodipine Besylate 5 mg 01/20/17 10:00 01/24/17 12:25 Norvasc - PO Not Given DAILY LUCÍA Atorvastatin Calcium 10 mg 01/20/17 22:00 01/23/17 21:09 Lipitor - PO 10 mg HS LUCÍA Administration Ceftriaxone Sodium 1 gm 01/20/17 10:00 01/24/17 12:23 Rocephin 1gm Ivpb (Pre-Docked) IVPB 1 gm DAILY LUCÍA Administration Gabapentin 100 mg 01/22/17 14:00 01/24/17 05:58 Neurontin - PO Not Given TID LUCÍA Heparin Sodium (Porcine) 5,000 unit 01/20/17 10:00 01/23/17 10:27 Heparin - SQ 5,000 unit BID LUCÍA Administration Sodium Chloride 1,000 mls @ 60 mls/hr 01/21/17 08:49 01/24/17 08:30 Normal Saline - IV 60 mls/hr ASDIR LUCÍA Administration Metoprolol Tartrate 50 mg 01/20/17 10:00 01/24/17 12:25 Lopressor - PO Not Given DAILY LUCÍA Mirtazapine 7.5 mg 01/22/17 22:00 01/23/17 21:10 Remeron - PO 7.5 mg HS LUCÍA Administration Multivitamins/Minerals/Vitamin C 1 tab 01/23/17 10:00 01/24/17 12:26 Tab-A-Vit - PO Not Given DAILY LCUÍA ASSESSMENT/PLAN: Patient is a 86 year old male with a significant past medical history of hypertension, hyperlipidemia, sciatica, bladder cancer s/p chemotherapy and s/p bladder scrapping. He presented to the ER on 2016 for right leg weakness s/p fall at home where he landed on his buttocks. He reports that he has had worsening right leg pain and weakness x 1 day. Patient's daughter reports that patient lives at home alone with an upstairs bathroom. As per daughter, patient is usually ambulatory with cane and independent with all ADLs. Patient continues to deny fever, chills, cough, shortness of breath or any other discomfort. During my exam, he was laying in the bed, in no acute distress and had just returned from a right nephrostomy tube placement. Imagin01/19/2017 - Xray R- Hip & Pelvis: No radiographic evidence of neoplastic disease or fracture is identified 01/19/2017 - CT/Lumbar spine ct w/o contrast:No evidence of osseous neoplastic disease. Prominent multilevel degenerative disc and facet joint changes are noted. In comparison with the abd/pelvic ct of 10/12/2007, interval development of the focal soft tissue thickening along the right post aspect of the partially imaged bladder wall consistent with known mets disease. Development of right sided hydroureteronephrosis is probably moderate. 01/19/2017 - UA: +protein, + leukocyte esterase, WBC 65 01/21/2017 - kidney/bladder ultrasound: (1) moderate-severe rt sided hydronephrosis, (2) ill defined rt post. bladder mass likely malignant (5.8 x 2.1cm), urinary retention of 273cc (3) prostatic enlargement. Muscular/Skeletal Right Leg Pain/weakness - s/p fall/Lumbar spinal stenosis Assessment/Plan: Xray of right leg with no evidence of neoplastic disease or fracture CT/Lumbar spine ct w/o contrast:No evidence of osseous neoplastic disease. Prominent multilevel degenerative disc and facet joint changes are noted Will need physical therapy both inpatient and @ discharge Possible short term rehab - if patient agrees, social work following Fall risk Seen by neurosurgeon. notes reviewed. Patient on Neurontin TID, lumbar mri ordered Hematology/Oncology: Bladder cancer Assessment/Plan: Patient has a recent cysto right ureteroscopy and attempted stent placement in 11/29/16 for tumor necrosis involving the right dome - right lateral wall and right hemitrigone Spoke to pt about treatment options he would like to pursue, he is asking for an oncology consult Cardiology: Hypertension - chronic Assessment/Plan: On Norvasc and Metoprolol BP @ goal, monitor : Acute Kidney Injury Assessment/Plan: on CT/Pelvis shows development of right sided hydroureteronephrosis-moderate kidney/bladder ultrasound 01/21:mod-severe rt sided hydro, rt post. bladder mass likely malignant, urinary retention of 273cc, prostatic enlargement. Dr. Culp/Jovita following Monitor I & O BUN/Creat: 25/1.4 today, baseline appears to be between 1.0~1.2 Will have urology evaluate as he had a recent cysto 10/2016 Urinary Tract Infection - acute Assessment/Plan: UA: +protein, + leukocyte esterase, WBC 65 + Leukocytosis on admission Zosyn given in ED, Started on Rocephin 1 gram on 01/20/2017 Urine cultures pending Blood cultures no growth to date WBC within normal limits monitor CBC, vitals signs remains afebrile Hyponatremia - likely related to dehydration - resolved Assessment/Plan: hyponatremia improving with NS129> 136 Continue NS @ 60cc/hr Will continue to hold HCTZ monitor BMP F.E.N. Fluids: NS @ 60cc/hr Electrolytes: hyponatremia: resolved Nutrition: reported to have poor PO intake, will order Ensure with meals Disposition: Requires inpatient hospitalization. Will discharge back to PCP Dr. Vega service on d/c. Thank you for this opportunity. Patient is Full Code. Visit type - Emergency Visit Emergency Visit: Yes ED Registration Date: 01/21/17 Care time: The patient presented to the Emergency Department on the above date and was hospitalized for further evaluation of their emergent condition. - New Patient This patient is new to me today: No - Critical Care Critical Care patient: No - Discharge Referral Referred to [facility] Med P.C.: No
--- NOTE | 2017-01-24 15:58 | PN ---
Progress Note, Physician History of Present Illness: Pt seen and examined at bedside. He is awake and alert. He had the nephrostomy tube placed today. - Current Medication List Current Medications: Active Medications Amlodipine Besylate (Norvasc -) 5 mg PO DAILY [facility] Last Admin: 01/24/17 12:25 Dose: Not Given Atorvastatin Calcium (Lipitor -) 10 mg PO HS [facility] Last Admin: 01/23/17 21:09 Dose: 10 mg Ceftriaxone Sodium (Rocephin 1gm Ivpb (Pre-Docked)) 1 gm IVPB DAILY [facility] Last Admin: 01/24/17 12:23 Dose: 1 gm Gabapentin (Neurontin -) 100 mg PO TID [facility] Last Admin: 01/24/17 14:15 Dose: Not Given Heparin Sodium (Porcine) (Heparin -) 5,000 unit SQ BID [facility] Last Admin: 01/23/17 10:27 Dose: 5,000 unit Sodium Chloride (Normal Saline -) 1,000 mls @ 60 mls/hr IV ASDIR [facility] Last Admin: 01/24/17 08:30 Dose: 60 mls/hr Metoprolol Tartrate (Lopressor -) 50 mg PO DAILY [facility] Last Admin: 01/24/17 12:25 Dose: Not Given Mirtazapine (Remeron -) 7.5 mg PO HS [facility] Last Admin: 01/23/17 21:10 Dose: 7.5 mg Multivitamins/Minerals/Vitamin C (Tab-A-Vit -) 1 tab PO DAILY [facility] Last Admin: 01/24/17 12:26 Dose: Not Given - Objective Vital Signs: Vital Signs Temperature 97.2 F L 01/24/17 13:45 Pulse Rate 92 H 01/24/17 13:45 Respiratory Rate 20 01/24/17 13:45 Blood Pressure 144/69 01/24/17 13:45 O2 Sat by Pulse Oximetry (%) 100 01/24/17 10:51 Constitutional: Yes: Calm Eyes: Yes: Conjunctiva Clear HENT: Yes: Atraumatic Neck: Yes: Supple Cardiovascular: Yes: S1, S2 Respiratory: Yes: CTA Bilaterally Gastrointestinal: Yes: Soft Genitourinary: Yes: Other (right nephrostomy) Musculoskeletal: Yes: WNL Edema: Yes Neurological: Yes: Oriented Psychiatric: Yes: Oriented Labs: CBC, BMP 01/24/17 09:20 01/24/17 09:20 INR, PTT INR 1.11 (0.82-1.09) 01/19/17 15:15 Problem List - Problems (1) HLD (hyperlipidemia) Code(s): E78.5 - HYPERLIPIDEMIA, UNSPECIFIED (2) HTN (hypertension) Code(s): I10 - ESSENTIAL (PRIMARY) HYPERTENSION (3) Hyponatremia Code(s): E87.1 - HYPO-OSMOLALITY AND HYPONATREMIA (4) Leg pain, right Code(s): M79.604 - PAIN IN RIGHT LEG (5) Right leg weakness Code(s): R29.898 - OTH SYMPTOMS AND SIGNS INVOLVING THE MUSCULOSKELETAL SYSTEM (6) KIANNA (acute kidney injury) Code(s): N17.9 - ACUTE KIDNEY FAILURE, UNSPECIFIED Assessment/Plan Current Medications Generic Name Dose Route Start Last Admin Trade Name Freq PRN Reason Stop Dose Admin Amlodipine Besylate 5 mg 01/20/17 10:00 01/24/17 12:25 Norvasc - PO Not Given DAILY LUCÍA Atorvastatin Calcium 10 mg 01/20/17 22:00 01/23/17 21:09 Lipitor - PO 10 mg HS LUCÍA Administration Ceftriaxone Sodium 1 gm 01/20/17 10:00 01/24/17 12:23 Rocephin 1gm Ivpb (Pre-Docked) IVPB 1 gm DAILY LUCÍA Administration Gabapentin 100 mg 01/22/17 14:00 01/24/17 14:15 Neurontin - PO Not Given TID LUCÍA Heparin Sodium (Porcine) 5,000 unit 01/20/17 10:00 01/23/17 10:27 Heparin - SQ 5,000 unit BID LUCÍA Administration Sodium Chloride 1,000 mls @ 60 mls/hr 01/21/17 08:49 01/24/17 08:30 Normal Saline - IV 60 mls/hr ASDIR LUCÍA Administration Metoprolol Tartrate 50 mg 01/20/17 10:00 01/24/17 12:25 Lopressor - PO Not Given DAILY LUCÍA Mirtazapine 7.5 mg 01/22/17 22:00 01/23/17 21:10 Remeron - PO 7.5 mg HS LUCÍA Administration Multivitamins/Minerals/Vitamin C 1 tab 01/23/17 10:00 01/24/17 12:26 Tab-A-Vit - PO Not Given DAILY LUCÍA Impression 1. KIANNA 2. UTI 3. bladder cancer 4. HTN 5. hyponatremia 6. hyperlipidemia Plan - monitor nephrostomy output - repeat labs in am - monitor renal function - cont with fluids - follow urine cultures - monitor BP Dr Hussein
--- NOTE | 2017-01-24 17:05 | CONSULT ---
Consult - text type - Consultation Consultation Note: PAtient is a 86 y/o male with a past medical history of Hypertension, Hyperlipidemia, Sciatica, Bladder Ca ( diagnosd 1 year ago, ), s/p bladder scrapping x 6 weeks. Who presented to the emergency department accompanied by his daughter with right leg weakness, pain, non-ambulatory x 1 day. Patient reports ambulating with a cane, falling in his kitchen onto his buttock. Patient denies LOC. Patient states" I can't stand or walk on my right leg, because of the pain". Patient's daughter reports that the patient lives at home alone, and the bathroom is located upstairs. Patient denies fever, chills, cough , SOB, CP, AP, N/V/D Recent Travel: None PAST MEDICAL HISTORY: HTN Hyperlipidemia Sciatica Bladder cancer PAST SURGICAL HISTORY: Hernia Repair Social History: Smoking: Former- Cigar Alcohol: None Drugs: None Family History: Allergies No Known Drug Allergies Allergy (Verified 01/19/17 14:59) HOME MEDICATIONS: Home Medications Medication Instructions Recorded Amlodipine Besylate [Norvasc -] 5 mg PO DAILY #0 tablet 02/09/14 Atorvastatin Ca [Lipitor] 10 mg PO HS #0 tablet 02/09/14 Hydrochlorothiazide [Hctz -] 25 mg PO DAILY #0 tablet 02/09/14 Metoprolol Tartrate [Lopressor -] 50 mg PO DAILY #0 tablet 02/09/14 Active Medications Generic Name Dose Route Start Last Admin Trade Name Freq PRN Reason Stop Dose Admin Amlodipine Besylate 5 mg 01/20/17 10:00 01/24/17 12:25 Norvasc - PO Not Given DAILY LUCÍA Atorvastatin Calcium 10 mg 01/20/17 22:00 01/23/17 21:09 Lipitor - PO 10 mg HS LUCÍA Administration Ceftriaxone Sodium 1 gm 01/20/17 10:00 01/24/17 12:23 Rocephin 1gm Ivpb (Pre-Docked) IVPB 1 gm DAILY LUCÍA Administration Gabapentin 100 mg 01/22/17 14:00 01/24/17 14:15 Neurontin - PO Not Given TID LUCÍA Heparin Sodium (Porcine) 5,000 unit 01/20/17 10:00 01/23/17 10:27 Heparin - SQ 5,000 unit BID LUCÍA Administration Sodium Chloride 1,000 mls @ 60 mls/hr 01/21/17 08:49 01/24/17 08:30 Normal Saline - IV 60 mls/hr ASDIR LUCÍA Administration Metoprolol Tartrate 50 mg 01/20/17 10:00 01/24/17 12:25 Lopressor - PO Not Given DAILY LUCÍA Mirtazapine 7.5 mg 01/22/17 22:00 01/23/17 21:10 Remeron - PO 7.5 mg HS LUCÍA Administration Multivitamins/Minerals/Vitamin C 1 tab 01/23/17 10:00 01/24/17 12:26 Tab-A-Vit - PO Not Given DAILY LUCÍA Last Vital Signs Temp Pulse Resp BP Pulse Ox 97.2 F L 92 H 20 144/69 100 01/24/17 13:45 01/24/17 13:45 01/24/17 13:45 01/24/17 13:45 01/24/17 10:51 HEENT: SUSANA, EOM Intact Cor: RSR, No murmurs, No gallops Lungs: Clear to P&A Abd: Soft, Normal bowel sounds, No organomegaly Ext:No significant edema Skin: No rashes, Integument intact Abnormal Lab Results 01/24/17 01/24/17 09:20 09:20 RBC 3.85 L Hgb 10.8 L Hct 31.8 L MPV 6.9 L BUN 25 H Creatinine 1.4 H AST 13 L D Total Protein 5.8 L Albumin 3.0 L A/P - Problem (1) Right leg weakness Assessment/Plan: - Patient reports fall with increased leg weakness, non-ambulatory, non-weight bearing - Xray R- Hip & Pelvis- No radiographic evidence of neoplastic disease or fracture is identified - L soine CT- No CT evidence of osseous neoplastic disease. Prominent multilevel degenerative disc and facet joint changes are noted. A minimal to mild chronic L2 vertebral body compression fracture is noted without bony retropulsion. f/u mri lspine check bone scan 2. bladder cancer-- f/u CT a/p will check chest CT/bone scan
[2017-01-24] MEDS: HEPARIN NA (PORCINE) 5,000 UNITS/ML 1ML VIAL SQ SCH (22:10)
[2017-01-24] MEDS: ATORVASTATIN CA 10 MG TABLET (FP) PO SCH (22:10)
[2017-01-24] MEDS: MIRTAZAPINE 15 MG TABLET (FP) PO SCH (22:10)
[2017-01-25] MEDS: GABAPENTIN 100 MG CAPSULE (FP) PO SCH ×3 (05:22→22:03)
[2017-01-25 07:30] LABS: BASOPHIL 0.7 % (0-2.0); EOSINOPHIL 3.3 % (0-4.5); MCH 28.1 pg (25.7-33.7); MCHC 34.1 g/dl (32.0-35.9); MEAN CELL VOLUME 82.2 fl (80-96); MEAN PLT VOLUME 6.9 fl (7.5-11.1); PLATELET COUNT 279 K/MM3 (134-434); RDW 14.4 % (11.9-15.9)
[2017-01-25 07:49] LABS: ALBUMIN 3.1 g/dl (3.4-5.0); BILIRUBIN,TOTAL 0.5 mg/dL (0.2-1.0); CALCIUM 8.8 mg/dL (8.5-10.1); CREATININE 1.3 mg/dL (0.7-1.3); TOT PROT 6.2 g/dl (6.4-8.2)
--- NOTE | 2017-01-25 08:21 | PN ---
Progress Note (short form) - Note Progress Note: NEUROSURGERY Some R thigh pain, was walking a lot yesterday Awaiting procedure, NPO PE: AF, VSS General- unremarkable; CV-RR; Lungs- CTA; Abd- benign; Ext- varicose veins/ chronic venous changes B LE A/A/Ox3 CN- intact; Motor- 4+ B LE except R IP/Quad 4+/5; Sensation- intact LT, decreased distal vibration; DTR- hyporeflexia B; Negative SLR B to [address] LS spine- extensive spondylosis, multilevel marked DDD; moderate to marked stenosis L3-4 and L4-5; possible small focal HNP R L4-5; no obvious mets Lumbar spinal stenosis with small focal R L4-5 HNP and radiculopathy; HTN; bladder CA Cont neurontin/PT No neurosurgical intervention recommended give age and other medical co- morbidities MRI LS spine without migue and nuc bone scan per oncology May consider pain management injection for sciatica
[2017-01-25] MEDS: amLODIPine BESYLATE 5 MG TABLET (FP) PO SCH (10:26)
[2017-01-25] MEDS: HEPARIN NA (PORCINE) 5,000 UNITS/ML 1ML VIAL SQ SCH ×2 (10:26→22:04)
[2017-01-25] MEDS: MULTIVITAMINS (DAILY MVI) TABLET (FP) PO SCH (10:26)
[2017-01-25] MEDS: METOPROLOL TARTRATE 50 MG TABLET (FP) PO SCH (10:26)
[2017-01-25] MEDS: cefTRIAXone 1 GM/50 ML BAG (PRE-DOCKED) IVPB SCH (10:26)
[2017-01-25] MEDS: SODIUM CHLORIDE 1,000 ML IV SCH ×2 (10:27→17:05)
--- NOTE | 2017-01-25 13:22 | PN ---
Physical Exam: SUBJECTIVE: Patient seen and examined. Denies any discomfort. Denies pain with ambulation, tolerating daily PT but seems to walk better with a walker. OBJECTIVE: Right nephrostomy tube with ginny red blood, h/h stable patient is still thinking of various treatment options for bladder cancer, met with oncologist yesterday. BP elevated, increased Norvasc to 10mg Vital Signs Period Temp Pulse Resp BP Sys/Askew Pulse Ox Last 24 Hr 97.2 F-98.4 F 83-101 18-20 140-153/63-74 98 GENERAL: The patient is awake, alert, and fully oriented, in no acute distress. HEAD: Normal with no signs of trauma. EYES: PERRL, extraocular movements intact, sclera anicteric, conjunctiva clear. No ptosis. ENT: Ears normal, nares patent, oropharynx clear without exudates, moist mucous membranes. NECK: Trachea midline, full range of motion, supple. LUNGS: Breath sounds equal, clear to auscultation bilaterally, no wheezes, no crackles, no accessory muscle use. HEART: Regular rate and rhythm ABDOMEN: Soft, nontender, nondistended, + bowel sounds, no guarding, no rebound , no hepatosplenomegaly, no masses. EXTREMITIES: 2+ pulses, warm, well-perfused, no edema. NEUROLOGICAL: Normal speech,right leg weakness PSYCH: Normal mood, normal affect. SKIN: left nephrostomy tube placed today, dressing c/d/i. gross hematuria, no clots seen Laboratory Results - last 24 hr 01/25/17 01/25/17 06:00 06:00 WBC 8.0 RBC 4.11 Hgb 11.5 L Hct 33.8 L MCV 82.2 MCHC 34.1 RDW 14.4 Plt Count 279 MPV 6.9 L Neutrophils % 77.0 Lymphocytes % 9.9 Monocytes % 9.1 Eosinophils % 3.3 Basophils % 0.7 Sodium 135 L Potassium 4.5 Chloride 95 L Carbon Dioxide 28 Anion Gap 12 BUN 23 H Creatinine 1.3 Creat Clearance w eGFR 52.10 Random Glucose 88 Calcium 8.8 Total Bilirubin 0.5 D AST 15 ALT 20 D Alkaline Phosphatase 118 H Total Protein 6.2 L Albumin 3.1 L Active Medications Generic Name Dose Route Start Last Admin Trade Name Freq PRN Reason Stop Dose Admin Amlodipine Besylate 5 mg 01/20/17 10:00 01/25/17 10:26 Norvasc - PO 5 mg DAILY LUCÍA Administration Atorvastatin Calcium 10 mg 01/20/17 22:00 01/24/17 22:10 Lipitor - PO 10 mg HS LUCÍA Administration Gabapentin 100 mg 01/22/17 14:00 01/25/17 05:22 Neurontin - PO 100 mg TID LUCÍA Administration Heparin Sodium (Porcine) 5,000 unit 01/20/17 10:00 01/25/17 10:26 Heparin - SQ 5,000 unit BID LUCÍA Administration Sodium Chloride 1,000 mls @ 60 mls/hr 01/21/17 08:49 01/25/17 10:27 Normal Saline - IV 60 mls/hr ASDIR LUCÍA Administration Metoprolol Tartrate 50 mg 01/20/17 10:00 01/25/17 10:26 Lopressor - PO 50 mg DAILY LUCÍA Administration Mirtazapine 7.5 mg 01/22/17 22:00 01/24/17 22:10 Remeron - PO 7.5 mg HS LUCÍA Administration Multivitamins/Minerals/Vitamin C 1 tab 01/23/17 10:00 01/25/17 10:26 Tab-A-Vit - PO 1 tab DAILY LUCÍA Administration ASSESSMENT/PLAN: Patient is a 86 year old male with a significant past medical history of hypertension, hyperlipidemia, sciatica, bladder cancer s/p chemotherapy and s/p bladder scrapping. He presented to the ER on 2016 for right leg weakness s/p fall at home where he landed on his buttocks. He reports that he has had worsening right leg pain and weakness x 1 day. Patient's daughter reports that patient lives at home alone with an upstairs bathroom. As per daughter, patient is usually ambulatory with cane and independent with all ADLs. Patient continues to deny fever, chills, cough, shortness of breath or any other discomfort. During my exam, he was laying in the bed, in no acute distress. Right nephrostomy with ginny hematuria. Imagin01/19/2017 - Xray R- Hip & Pelvis: No radiographic evidence of neoplastic disease or fracture is identified 01/19/2017 - CT/Lumbar spine ct w/o contrast:No evidence of osseous neoplastic disease. Prominent multilevel degenerative disc and facet joint changes are noted. In comparison with the abd/pelvic ct of 10/12/2007, interval development of the focal soft tissue thickening along the right post aspect of the partially imaged bladder wall consistent with known mets disease. Development of right sided hydroureteronephrosis is probably moderate. 01/19/2017 - UA: +protein, + leukocyte esterase, WBC 65 01/21/2017 - kidney/bladder ultrasound: (1) moderate-severe rt sided hydronephrosis, (2) ill defined rt post. bladder mass likely malignant (5.8 x 2.1cm), urinary retention of 273cc (3) prostatic enlargement. 01/24/2017 mri/lumbar spine w/o contrast shows levosciolosis of lumbosacral spine : L3-L4 disc desiccation, L1-L2 facet joint arthropathy, L2-L3 schmorl node seen , L4-L5 central spine canal stenosis Muscular/Skeletal Right Leg Pain/weakness - s/p fall/Lumbar spinal stenosis - at baseline, can ambulate with PT, needs assistance Assessment/Plan: Xray of right leg with no evidence of neoplastic disease or fracture CT/Lumbar spine ct w/o contrast:No evidence of osseous neoplastic disease. Prominent multilevel degenerative disc and facet joint changes are noted MRI of lumbar spine reviewed Will need physical therapy both inpatient and @ discharge Possible short term rehab - if patient agrees, social work following Fall risk Seen by neurosurgeon. notes reviewed. Patient on Neurontin TID, lumbar mri reviewed Bone scan ordered Hematology/Oncology: Bladder cancer - chronic Assessment/Plan: Patient has a recent cysto right ureteroscopy and attempted stent placement in 11/29/16 for tumor necrosis involving the right dome - right lateral wall and right hemitrigone Patient is exploring treating options with oncologist Cardiology: Hypertension - chronic Assessment/Plan: On Norvasc and Metoprolol Increased Norvasc to 10mg daily for elevated BPs : Acute Kidney Injury Assessment/Plan: on CT/Pelvis shows development of right sided hydroureteronephrosis-moderate kidney/bladder ultrasound 01/21:mod-severe rt sided hydro, rt post. bladder mass likely malignant, urinary retention of 273cc, prostatic enlargement. Dr. Culp/Jovita following Monitor I & O BUN/Creat: 22/11.3 today, improving Will have urology evaluate as he had a recent cysto 10/2016 Urinary Tract Infection - resolved Assessment/Plan: UA: +protein, + leukocyte esterase, WBC 65 + Leukocytosis on admission Zosyn given in ED, Started on Rocephin 1 gram on 01/20/2017 d/cd today, UC negative Hyponatremia - likely related to dehydration - improving Assessment/Plan: hyponatremia improving with NS129> 135 Continue NS @ 60cc/hr Will continue to hold HCTZ monitor BMP F.E.N. Fluids: NS @ 60cc/hr Electrolytes: hyponatremia: 135, monitor Nutrition: reported to have poor PO intake, will order Ensure with meals, d/c remeron Disposition: Requires inpatient hospitalization. Will discharge back to PCP Dr. Vega service on d/c. Thank you for this opportunity. Patient is Full Code. Visit type - Emergency Visit Emergency Visit: Yes ED Registration Date: 01/21/17 Care time: The patient presented to the Emergency Department on the above date and was hospitalized for further evaluation of their emergent condition. - New Patient This patient is new to me today: No - Critical Care Critical Care patient: No - Discharge Referral Referred to [id number] Med [facility] No
--- NOTE | 2017-01-25 14:36 | PN ---
Progress Note, Physician History of Present Illness: Pt seen and examined at bedside. He is awake and alert. He denies fevers or chills. - Current Medication List Current Medications: Active Medications Amlodipine Besylate (Norvasc -) 5 mg PO DAILY [facility] Last Admin: 01/25/17 10:26 Dose: 5 mg Atorvastatin Calcium (Lipitor -) 10 mg PO HS [facility] Last Admin: 01/24/17 22:10 Dose: 10 mg Gabapentin (Neurontin -) 100 mg PO TID [facility] Last Admin: 01/25/17 05:22 Dose: 100 mg Heparin Sodium (Porcine) (Heparin -) 5,000 unit SQ BID [facility] Last Admin: 01/25/17 10:26 Dose: 5,000 unit Sodium Chloride (Normal Saline -) 1,000 mls @ 60 mls/hr IV ASDIR [facility] Last Admin: 01/25/17 10:27 Dose: 60 mls/hr Metoprolol Tartrate (Lopressor -) 50 mg PO DAILY [facility] Last Admin: 01/25/17 10:26 Dose: 50 mg Mirtazapine (Remeron -) 7.5 mg PO HS [facility] Last Admin: 01/24/17 22:10 Dose: 7.5 mg Multivitamins/Minerals/Vitamin C (Tab-A-Vit -) 1 tab PO DAILY [facility] Last Admin: 01/25/17 10:26 Dose: 1 tab - Objective Vital Signs: Vital Signs Temperature 97.8 F 01/25/17 09:00 Pulse Rate 93 H 01/25/17 09:00 Respiratory Rate 18 01/25/17 09:00 Blood Pressure 146/63 01/25/17 09:00 O2 Sat by Pulse Oximetry (%) 98 01/24/17 21:00 Constitutional: Yes: Calm Eyes: Yes: Conjunctiva Clear HENT: Yes: Atraumatic Neck: Yes: Supple Cardiovascular: Yes: S1, S2 Respiratory: Yes: CTA Bilaterally Gastrointestinal: Yes: Soft Genitourinary: Yes: Other (right nephrostomy) Musculoskeletal: Yes: Other (right leg pain) Edema: No Neurological: Yes: Oriented Psychiatric: Yes: Oriented Labs: CBC, BMP 01/25/17 06:00 01/25/17 06:00 INR, PTT INR 1.11 (0.82-1.09) 01/19/17 15:15 Problem List - Problems (1) HLD (hyperlipidemia) Code(s): E78.5 - HYPERLIPIDEMIA, UNSPECIFIED (2) HTN (hypertension) Code(s): I10 - ESSENTIAL (PRIMARY) HYPERTENSION (3) Hyponatremia Code(s): E87.1 - HYPO-OSMOLALITY AND HYPONATREMIA (4) Leg pain, right Code(s): M79.604 - PAIN IN RIGHT LEG (5) Right leg weakness Code(s): R29.898 - OTH SYMPTOMS AND SIGNS INVOLVING THE MUSCULOSKELETAL SYSTEM (6) KIANNA (acute kidney injury) Code(s): N17.9 - ACUTE KIDNEY FAILURE, UNSPECIFIED Assessment/Plan Current Medications Generic Name Dose Route Start Last Admin Trade Name Freq PRN Reason Stop Dose Admin Amlodipine Besylate 5 mg 01/20/17 10:00 01/25/17 10:26 Norvasc - PO 5 mg DAILY LUCÍA Administration Atorvastatin Calcium 10 mg 01/20/17 22:00 01/24/17 22:10 Lipitor - PO 10 mg HS LUCÍA Administration Gabapentin 100 mg 01/22/17 14:00 01/25/17 05:22 Neurontin - PO 100 mg TID LUCÍA Administration Heparin Sodium (Porcine) 5,000 unit 01/20/17 10:00 01/25/17 10:26 Heparin - SQ 5,000 unit BID LUCÍA Administration Sodium Chloride 1,000 mls @ 60 mls/hr 01/21/17 08:49 01/25/17 10:27 Normal Saline - IV 60 mls/hr ASDIR LUCÍA Administration Metoprolol Tartrate 50 mg 01/20/17 10:00 01/25/17 10:26 Lopressor - PO 50 mg DAILY LUCÍA Administration Mirtazapine 7.5 mg 01/22/17 22:00 01/24/17 22:10 Remeron - PO 7.5 mg HS LUCÍA Administration Multivitamins/Minerals/Vitamin C 1 tab 01/23/17 10:00 01/25/17 10:26 Tab-A-Vit - PO 1 tab DAILY LUCÍA Administration Impression 1. KIANNA 2. UTI 3. bladder cancer 4. HTN 5. hyponatremia 6. hyperlipidemia Plan - nephrostomy input is still bloody, cont to monitor - hg is stable - gentle hydration for now - renal function is stabilizing - urine cultures show no growth to date - monitor BP Dr Hussein
[2017-01-25] MEDS ORDERED: amLODIPine BESYLATE 5 MG TABLET (FP) PO ONE (16:15)
--- NOTE | 2017-01-25 18:05 | PN ---
Progress Note (short form) - Note Progress Note: Patient seen and examined Still with hematuria via nephrostomy. Clear urine otherwise being passed. Still with difficulty with ambulation-- requires walker. CT scans and bone scan pending - but to date , no obvious mets. Patient lives alone in house , ( 3 years earlier) so social issue especially with ambulatory issues is magnified. Last Vital Signs Temp Pulse Resp BP Pulse Ox 97.8 F 93 H 18 146/63 98 01/25/17 09:00 01/25/17 09:00 01/25/17 09:00 01/25/17 09:00 01/24/17 21:00 Cor: RSR, No murmurs, No gallops Lungs: Clear to P&A Abd: Soft, Normal bowel sounds, No organomegaly nephrostomy tube Ext:No significant edema Skin: No rashes, Integument intact CBC, BMP 01/25/17 06:00 01/25/17 06:00 Current Medications Generic Name Dose Route Start Last Admin Trade Name Freq PRN Reason Stop Dose Admin Amlodipine Besylate 10 mg 01/26/17 10:00 Norvasc - PO DAILY LUCÍA Atorvastatin Calcium 10 mg 01/20/17 22:00 01/24/17 22:10 Lipitor - PO 10 mg HS LUCÍA Administration Gabapentin 100 mg 01/22/17 14:00 01/25/17 17:04 Neurontin - PO 100 mg TID LUCÍA Administration Heparin Sodium (Porcine) 5,000 unit 01/20/17 10:00 01/25/17 10:26 Heparin - SQ 5,000 unit BID LUCÍA Administration Sodium Chloride 1,000 mls @ 42 mls/hr 01/25/17 14:39 01/25/17 17:05 Normal Saline - IV 42 mls/hr ASDIR LUCÍA Administration Metoprolol Tartrate 50 mg 01/20/17 10:00 01/25/17 10:26 Lopressor - PO 50 mg DAILY LUCÍA Administration Multivitamins/Minerals/Vitamin C 1 tab 01/23/17 10:00 01/25/17 10:26 Tab-A-Vit - PO 1 tab DAILY LUCÍA Administration Impression: Invasive bladder ca S/P nephrostomy for hydronephrosis Spinal stenosis Difficulty with ambulation Plan: Await CT scan results and bone scan Needs P.T. Pain management follow up Social service issues Problematic approach for treatment in an 86 year old with bladder ca .
[2017-01-25] MEDS: ATORVASTATIN CA 10 MG TABLET (FP) PO SCH (22:03)
[2017-01-26] MEDS: GABAPENTIN 100 MG CAPSULE (FP) PO SCH ×3 (05:29→21:33)
[2017-01-26 07:24] LABS: BASOPHIL 0.9 % (0-2.0); EOSINOPHIL 2.7 % (0-4.5); MCHC 34.1 g/dl (32.0-35.9); MEAN CELL VOLUME 81.9 fl (80-96); MEAN PLT VOLUME 6.9 fl (7.5-11.1); NEUTROPHILS 75.9 % (42.8-82.8); PLATELET COUNT 259 K/MM3 (134-434); RDW 14.4 % (11.9-15.9); WHITE BLOOD COUNT 7.8 K/mm3 (4.0-10.0)
[2017-01-26 07:52] LABS: ALBUMIN 2.9 g/dl (3.4-5.0); BILIRUBIN,TOTAL 0.4 mg/dL (0.2-1.0); CALCIUM 8.5 mg/dL (8.5-10.1); CREATININE 1.4 mg/dL (0.7-1.3); TOT PROT 5.8 g/dl (6.4-8.2)
[2017-01-26] MEDS ORDERED: PT OWN MED DRAWER 7, Y5N ONE (09:28)
[2017-01-26] MEDS: MULTIVITAMINS (DAILY MVI) TABLET (FP) PO SCH (10:04)
[2017-01-26] MEDS: amLODIPine BESYLATE 10 MG TABLET (FP) PO SCH (10:04)
[2017-01-26] MEDS: METOPROLOL TARTRATE 50 MG TABLET (FP) PO SCH (10:04)
[2017-01-26] MEDS: HEPARIN NA (PORCINE) 5,000 UNITS/ML 1ML VIAL SQ SCH ×2 (10:05→21:33)
--- NOTE | 2017-01-26 10:44 | PN ---
Progress Note, Physician History of Present Illness: Pt seen and examined at bedside. He is awake and alert. He denies shortness of breath. - Current Medication List Current Medications: Active Medications Amlodipine Besylate (Norvasc -) 10 mg PO DAILY [facility] Last Admin: 01/26/17 10:04 Dose: 10 mg Atorvastatin Calcium (Lipitor -) 10 mg PO HS [facility] Last Admin: 01/25/17 22:03 Dose: 10 mg Gabapentin (Neurontin -) 100 mg PO TID [facility] Last Admin: 01/26/17 05:29 Dose: 100 mg Heparin Sodium (Porcine) (Heparin -) 5,000 unit SQ BID [facility] Last Admin: 01/26/17 10:05 Dose: 5,000 unit Sodium Chloride (Normal Saline -) 1,000 mls @ 42 mls/hr IV ASDIR [facility] Last Admin: 01/25/17 17:05 Dose: 42 mls/hr Metoprolol Tartrate (Lopressor -) 50 mg PO DAILY [facility] Last Admin: 01/26/17 10:04 Dose: 50 mg Multivitamins/Minerals/Vitamin C (Tab-A-Vit -) 1 tab PO DAILY [facility] Last Admin: 01/26/17 10:04 Dose: 1 tab - Objective Vital Signs: Vital Signs Temperature 97.7 F 01/26/17 06:00 Pulse Rate 93 H 01/26/17 06:00 Respiratory Rate 20 01/26/17 06:00 Blood Pressure 144/73 01/26/17 06:00 O2 Sat by Pulse Oximetry (%) 98 01/25/17 21:00 Constitutional: Yes: Calm Eyes: Yes: Conjunctiva Clear Neck: Yes: Supple Cardiovascular: Yes: S1, S2 Gastrointestinal: Yes: Normal Bowel Sounds, Soft Genitourinary: Yes: Other (rigth nephrostomy) Musculoskeletal: Yes: Other (right leg pain) Neurological: Yes: Oriented Psychiatric: Yes: Oriented Labs: CBC, BMP 01/26/17 06:10 01/26/17 06:10 INR, PTT INR 1.11 (0.82-1.09) 01/19/17 15:15 Problem List - Problems (1) HLD (hyperlipidemia) Code(s): E78.5 - HYPERLIPIDEMIA, UNSPECIFIED (2) HTN (hypertension) Code(s): I10 - ESSENTIAL (PRIMARY) HYPERTENSION (3) Hyponatremia Code(s): E87.1 - HYPO-OSMOLALITY AND HYPONATREMIA (4) Leg pain, right Code(s): M79.604 - PAIN IN RIGHT LEG (5) Right leg weakness Code(s): R29.898 - OTH SYMPTOMS AND SIGNS INVOLVING THE MUSCULOSKELETAL SYSTEM (6) KIANNA (acute kidney injury) Code(s): N17.9 - ACUTE KIDNEY FAILURE, UNSPECIFIED Assessment/Plan Current Medications Generic Name Dose Route Start Last Admin Trade Name Lucia PRN Reason Stop Dose Admin Amlodipine Besylate 10 mg 01/26/17 10:00 01/26/17 10:04 Norvasc - PO 10 mg DAILY LUCÍA Administration Atorvastatin Calcium 10 mg 01/20/17 22:00 01/25/17 22:03 Lipitor - PO 10 mg HS LUCÍA Administration Gabapentin 100 mg 01/22/17 14:00 01/26/17 05:29 Neurontin - PO 100 mg TID LUCÍA Administration Heparin Sodium (Porcine) 5,000 unit 01/20/17 10:00 01/26/17 10:05 Heparin - SQ 5,000 unit BID LUCÍA Administration Sodium Chloride 1,000 mls @ 42 mls/hr 01/25/17 14:39 01/25/17 17:05 Normal Saline - IV 42 mls/hr ASDIR LUCÍA Administration Metoprolol Tartrate 50 mg 01/20/17 10:00 01/26/17 10:04 Lopressor - PO 50 mg DAILY LUCÍA Administration Multivitamins/Minerals/Vitamin C 1 tab 01/23/17 10:00 01/26/17 10:04 Tab-A-Vit - PO 1 tab DAILY LUCÍA Administration Impression 1. KIANNA 2. UTI 3. bladder cancer 4. HTN 5. hyponatremia 6. hyperlipidemia Plan - nephrostomy is not putting out much, monitor output - heme onc workup in progress - will cont with fluids for now - cont to follow cultures - monitor BP Dr Hussein
--- NOTE | 2017-01-26 18:33 | PN ---
Physical Exam: SUBJECTIVE: Patient seen and examined OBJECTIVE: Vital Signs Period Temp Pulse Resp BP Sys/Askew Pulse Ox Last 24 Hr 97.5 F-98.2 F 78-97 18-20 118-144/51-73 98 GENERAL: The patient is awake, alert, and fully oriented, in no acute distress. HEAD: Normal with no signs of trauma. EYES: PERRL, extraocular movements intact, sclera anicteric, conjunctiva clear. No ptosis. LUNGS: Breath sounds equal, clear to auscultation bilaterally, no wheezes, no crackles, no accessory muscle use. HEART: Regular rate and rhythm, S1, S2, II/ systolic murmur, no rub or gallop. ABDOMEN: Soft, nontender, nondistended, normoactive bowel sounds, no guarding, no rebound EXTREMITIES: 2+ pulses, warm, well-perfused, no edema. NEUROLOGICAL: Cranial nerves II through XII grossly intact. Normal speech, gait not observed. Laboratory Results - last 24 hr 01/26/17 01/26/17 06:10 06:10 WBC 7.8 RBC 3.89 L Hgb 10.9 L Hct 31.9 L MCV 81.9 MCHC 34.1 RDW 14.4 Plt Count 259 MPV 6.9 L Neutrophils % 75.9 Lymphocytes % 11.2 Monocytes % 9.3 Eosinophils % 2.7 Basophils % 0.9 Sodium 134 L Potassium 4.8 Chloride 96 L Carbon Dioxide 27 Anion Gap 11 BUN 26 H Creatinine 1.4 H Creat Clearance w eGFR 47.83 Random Glucose 101 Calcium 8.5 Total Bilirubin 0.4 AST 14 L ALT 20 Alkaline Phosphatase 118 H Total Protein 5.8 L Albumin 2.9 L Active Medications Generic Name Dose Route Start Last Admin Trade Name Freq PRN Reason Stop Dose Admin Amlodipine Besylate 10 mg 01/26/17 10:00 01/26/17 10:04 Norvasc - PO 10 mg DAILY LUCÍA Administration Atorvastatin Calcium 10 mg 01/20/17 22:00 01/25/17 22:03 Lipitor - PO 10 mg HS LUCÍA Administration Gabapentin 100 mg 01/22/17 14:00 01/26/17 14:19 Neurontin - PO 100 mg TID LUCÍA Administration Heparin Sodium (Porcine) 5,000 unit 01/20/17 10:00 01/26/17 10:05 Heparin - SQ 5,000 unit BID LUCÍA Administration Sodium Chloride 1,000 mls @ 42 mls/hr 01/25/17 14:39 01/25/17 17:05 Normal Saline - IV 42 mls/hr ASDIR LUCÍA Administration Metoprolol Tartrate 50 mg 01/20/17 10:00 01/26/17 10:04 Lopressor - PO 50 mg DAILY LUCÍA Administration Multivitamins/Minerals/Vitamin C 1 tab 01/23/17 10:00 01/26/17 10:04 Tab-A-Vit - PO 1 tab DAILY LUCÍA Administration ASSESSMENT/PLAN: 86 year-old male with a PMH of HTN, HLD, lumbar spinal stenosis with radiculopathy, bladder cancer with associated hydronephrosis s/p chemo s/p bladder scraping x 6 weeks. Presented to the ED with RLE pain and weakness. Moderately severe right hydronephrosis secondary to bladder cancer with large bladder mass Acute kidney injury --Imaging shows 5.8 x 2.1cm right posterior bladder mass, moderately severe right hydroureteronephrosis --renal function improving, Cr 1.6-->1.4 (baseline 1.0) --nephrostomy tube placed 01/25, 195cc's output --01/25 Bone scan: (1) intense osteoblastic activity L3, right acetabular roof , and right pubic ramus; (2) focal uptake posterial lateral right 4th rib, trauma v. other Urinary tract infection --pyuria on UA --01/21, 01/24 urine cultures negative --ceftriaxone course complete Lumbar spinal stenosis Right L4-L5 HNP with radiculopathy --MRI LSS: L4-L5 central spinal canal stenosis; anterolateral disc bulge more prominent on the right, clinically correlate with radiculopathy in the distribution of the right L4 nerve --may need EPSI if persistent pain --continue Gabapentin, daily PT Hypertension --continue amlodipine, metoprolol Hyperlipidemia --continue Lipitor F/E/N Fluids: PO intake adequate Electrolytes: replete as indicated Nutrition: low sodium; NPO after midnight DVT prophylaxis: subq heparin PT evaluation Daily PT Dispo: Need to contact family to arrange for discharge planning. Full Code. Visit type - Emergency Visit Emergency Visit: Yes ED Registration Date: 01/21/17 Care time: The patient presented to the Emergency Department on the above date and was hospitalized for further evaluation of their emergent condition. - New Patient This patient is new to me today: No - Critical Care Critical Care patient: No
[2017-01-26] MEDS: SODIUM CHLORIDE 1,000 ML IV SCH (20:17)
[2017-01-26] MEDS: ATORVASTATIN CA 10 MG TABLET (FP) PO SCH (21:33)
[2017-01-27] MEDS: GABAPENTIN 100 MG CAPSULE (FP) PO SCH ×3 (07:10→21:37)
--- NOTE | 2017-01-27 10:58 | PN ---
Physical Exam: SUBJECTIVE: Patient seen and examined OBJECTIVE: Vital Signs Period Temp Pulse Resp BP Sys/Askew Pulse Ox Last 24 Hr 97.5 F-98.3 F 78-96 18-20 118-139/53-66 98 GENERAL: The patient is awake, alert, and fully oriented, in no acute distress. HEAD: Normal with no signs of trauma. EYES: PERRL, extraocular movements intact, sclera anicteric, conjunctiva clear. No ptosis. LUNGS: Breath sounds equal, clear to auscultation bilaterally, no wheezes, no crackles, no accessory muscle use. HEART: Regular rate and rhythm, S1, S2, II/ systolic murmur, no rub or gallop. ABDOMEN: Soft, nontender, nondistended, normoactive bowel sounds, no guarding, no rebound EXTREMITIES: 2+ pulses, warm, well-perfused, no edema. NEUROLOGICAL: Cranial nerves II through XII grossly intact. Normal speech, gait not observed. CBCD WBC 7.8 K/mm3 (4.0-10.0) 01/26/17 06:10 RBC 3.89 M/mm3 (4.00-5.60) L 01/26/17 06:10 Hgb 10.9 GM/dL (11.7-16.9) L 01/26/17 06:10 Hct 31.9 % (35.4-49) L 01/26/17 06:10 MCV 81.9 fl (80-96) 01/26/17 06:10 MCHC 34.1 g/dl (32.0-35.9) 01/26/17 06:10 RDW 14.4 % (11.9-15.9) 01/26/17 06:10 Plt Count 259 K/MM3 (134-434) 01/26/17 06:10 MPV 6.9 fl (7.5-11.1) L 01/26/17 06:10 CMP Sodium 134 mmol/L (136-145) L 01/26/17 06:10 Potassium 4.8 mmol/L (3.5-5.1) 01/26/17 06:10 Chloride 96 mmol/L (98-107) L 01/26/17 06:10 Carbon Dioxide 27 mmol/L (21-32) 01/26/17 06:10 Anion Gap 11 (8-16) 01/26/17 06:10 BUN 26 mg/dL (7-18) H 01/26/17 06:10 Creatinine 1.4 mg/dL (0.7-1.3) H 01/26/17 06:10 Creat Clearance w eGFR 47.83 (>60) 01/26/17 06:10 Calcium 8.5 mg/dL (8.5-10.1) 01/26/17 06:10 Total Bilirubin 0.4 mg/dL (0.2-1.0) 01/26/17 06:10 AST 14 U/L (15-37) L 01/26/17 06:10 ALT 20 U/L (12-78) 01/26/17 06:10 Alkaline Phosphatase 118 U/L (45-117) H 01/26/17 06:10 Total Protein 5.8 g/dl (6.4-8.2) L 01/26/17 06:10 Albumin 2.9 g/dl (3.4-5.0) L 01/26/17 06:10 Active Medications Generic Name Dose Route Start Last Admin Trade Name Freq PRN Reason Stop Dose Admin Amlodipine Besylate 10 mg 01/26/17 10:00 01/26/17 10:04 Norvasc - PO 10 mg DAILY LUCÍA Administration Atorvastatin Calcium 10 mg 01/20/17 22:00 01/26/17 21:33 Lipitor - PO 10 mg HS LUCÍA Administration Gabapentin 100 mg 01/22/17 14:00 01/27/17 07:10 Neurontin - PO 100 mg TID LUCÍA Administration Heparin Sodium (Porcine) 5,000 unit 01/20/17 10:00 01/26/17 21:33 Heparin - SQ 5,000 unit BID LUCÍA Administration Sodium Chloride 1,000 mls @ 42 mls/hr 01/25/17 14:39 01/26/17 20:17 Normal Saline - IV Not Given ASDIR LUCÍA Metoprolol Tartrate 50 mg 01/20/17 10:00 01/26/17 10:04 Lopressor - PO 50 mg DAILY LUCÍA Administration Multivitamins/Minerals/Vitamin C 1 tab 01/23/17 10:00 01/26/17 10:04 Tab-A-Vit - PO 1 tab DAILY LUCÍA Administration ASSESSMENT/PLAN 86 year-old male with a PMH of HTN, HLD, lumbar spinal stenosis with radiculopathy, bladder cancer with associated hydronephrosis s/p chemo s/p bladder scraping x 6 weeks. Presented to the ED with RLE pain and weakness. Moderately severe right hydronephrosis Acute kidney injury --Imaging shows 5.8 x 2.1cm right posterior bladder mass, moderately severe right hydroureteronephrosis --Cr has leveled off at 1.4 (baseline 1.0); discussed with renal Dr. Hussein --nephrostomy tube placed 01/25, sanguinous drainage --will need close outpatient followup with Dr. 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 other --get CT right hip and pelvis --discussed with patient and with daughter; once issue of metastatic disease is clarified, we will discuss future treatment with PCP Dr. Vega whom the trusts and relies upon Urinary tract infection --pyuria on UA --01/21, 01/24 urine cultures negative --ceftriaxone course complete Lumbar spinal stenosis Right L4-L5 HNP with radiculopathy --MRI LSS: L4-L5 central spinal canal stenosis; anterolateral disc bulge more prominent on the right, clinically correlate with radiculopathy in the distribution of the right L4 nerve --not a surgical candidate per Dr. Eaton --may need EPSI if persistent pain --continue Gabapentin, daily PT --outpatient followup Hypertension --continue amlodipine, metoprolol Hyperlipidemia --continue Lipitor F/E/N Fluids: PO intake adequate Electrolytes: replete as indicated Nutrition: low sodium; NPO after midnight DVT prophylaxis: subq heparin PT evaluation Daily PT Dispo: Discharge planning. Full Code. Visit type - Emergency Visit Emergency Visit: Yes ED Registration Date: 01/21/17 Care time: The patient presented to the Emergency Department on the above date and was hospitalized for further evaluation of their emergent condition. - New Patient This patient is new to me today: No - Critical Care Critical Care patient: No
[2017-01-27] MEDS ORDERED: PT OWN MED DRAWER 7, Y5N ONE (11:10)
[2017-01-27] MEDS: HEPARIN NA (PORCINE) 5,000 UNITS/ML 1ML VIAL SQ SCH ×2 (11:12→21:37)
[2017-01-27] MEDS: METOPROLOL TARTRATE 50 MG TABLET (FP) PO SCH (11:13)
[2017-01-27] MEDS: MULTIVITAMINS (DAILY MVI) TABLET (FP) PO SCH (11:14)
[2017-01-27] MEDS: amLODIPine BESYLATE 10 MG TABLET (FP) PO SCH (11:14)
--- NOTE | 2017-01-27 13:53 | PN ---
Progress Note (short form) - Note Progress Note: PAtient seen and examined Last Vital Signs Temp Pulse Resp BP Pulse Ox 97.5 F L 78 20 138/66 98 01/27/17 13:55 01/27/17 13:55 01/27/17 13:55 01/27/17 13:55 01/26/17 21:00 HEENT: SUSANA, EOM Intact Cor: RSR, No murmurs, No gallops Lungs: Clear to P&A Abd: Soft, Normal bowel sounds, No organomegaly Ext:No significant edema Labs reviewed Meds rviewed A/P 86 y/o patient with muscle invasive bladder cancer, c/o rt. hip pain Bone scan shows destructive lesion in pubic ramus, acetabulum, on the right. MRI --lumbar stenosis will check CT pelvis and rt. hip will request rad-onc consult
--- NOTE | 2017-01-27 15:25 | PN ---
Progress Note (short form) - Note Progress Note: S/P right PCN placement. 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 Then repeat Cystoscopy with biopsy. If bladder disease persists then can discuss RT/Chemo vs, Surgical option. Problem List - Problems (1) Bladder cancer Code(s): C67.9 - MALIGNANT NEOPLASM OF BLADDER, UNSPECIFIED
[2017-01-27] MEDS: SODIUM CHLORIDE 1,000 ML IV SCH ×2 (16:02→21:37)
--- NOTE | 2017-01-27 16:14 | PN ---
Progress Note, Physician History of Present Illness: Pt seen and examined at bedside. He is awake and alert. He denies shortness of breath. - Current Medication List Current Medications: Active Medications Amlodipine Besylate (Norvasc -) 10 mg PO DAILY [facility] Last Admin: 01/27/17 11:14 Dose: 10 mg Atorvastatin Calcium (Lipitor -) 10 mg PO HS [facility] Last Admin: 01/26/17 21:33 Dose: 10 mg Gabapentin (Neurontin -) 100 mg PO TID [facility] Last Admin: 01/27/17 14:02 Dose: 100 mg Heparin Sodium (Porcine) (Heparin -) 5,000 unit SQ BID [facility] Last Admin: 01/27/17 11:12 Dose: 5,000 unit Sodium Chloride (Normal Saline -) 1,000 mls @ 42 mls/hr IV ASDIR [facility] Last Admin: 01/27/17 16:02 Dose: Not Given Metoprolol Tartrate (Lopressor -) 50 mg PO DAILY [facility] Last Admin: 01/27/17 11:13 Dose: 50 mg Multivitamins/Minerals/Vitamin C (Tab-A-Vit -) 1 tab PO DAILY [facility] Last Admin: 01/27/17 11:14 Dose: 1 tab - Objective Vital Signs: Vital Signs Temperature 97.5 F L 01/27/17 13:55 Pulse Rate 78 01/27/17 13:55 Respiratory Rate 20 01/27/17 13:55 Blood Pressure 138/66 01/27/17 13:55 O2 Sat by Pulse Oximetry (%) 98 01/26/17 21:00 Constitutional: Yes: Calm Eyes: Yes: Conjunctiva Clear HENT: Yes: Atraumatic Neck: Yes: Supple Cardiovascular: Yes: S1, S2 Respiratory: Yes: CTA Bilaterally Gastrointestinal: Yes: Soft Genitourinary: Yes: Other (right nephrostomy) Musculoskeletal: Yes: Other (right leg pain) Edema: No Neurological: Yes: Oriented Psychiatric: Yes: Oriented Labs: CBC, BMP 01/26/17 06:10 01/26/17 06:10 INR, PTT INR 1.11 (0.82-1.09) 01/19/17 15:15 Problem List - Problems (1) HLD (hyperlipidemia) Code(s): E78.5 - HYPERLIPIDEMIA, UNSPECIFIED (2) HTN (hypertension) Code(s): I10 - ESSENTIAL (PRIMARY) HYPERTENSION (3) Hyponatremia Code(s): E87.1 - HYPO-OSMOLALITY AND HYPONATREMIA (4) Leg pain, right Code(s): M79.604 - PAIN IN RIGHT LEG (5) Right leg weakness Code(s): R29.898 - OTH SYMPTOMS AND SIGNS INVOLVING THE MUSCULOSKELETAL SYSTEM (6) KIANNA (acute kidney injury) Code(s): N17.9 - ACUTE KIDNEY FAILURE, UNSPECIFIED Assessment/Plan Current Medications Generic Name Dose Route Start Last Admin Trade Name Lucia PRN Reason Stop Dose Admin Amlodipine Besylate 10 mg 01/26/17 10:00 01/27/17 11:14 Norvasc - PO 10 mg DAILY LUCÍA Administration Atorvastatin Calcium 10 mg 01/20/17 22:00 01/26/17 21:33 Lipitor - PO 10 mg HS LUCÍA Administration Gabapentin 100 mg 01/22/17 14:00 01/27/17 14:02 Neurontin - PO 100 mg TID LUCÍA Administration Heparin Sodium (Porcine) 5,000 unit 01/20/17 10:00 01/27/17 11:12 Heparin - SQ 5,000 unit BID LUCÍA Administration Sodium Chloride 1,000 mls @ 42 mls/hr 01/25/17 14:39 01/27/17 16:02 Normal Saline - IV Not Given ASDIR LUCÍA Metoprolol Tartrate 50 mg 01/20/17 10:00 01/27/17 11:13 Lopressor - PO 50 mg DAILY LUCÍA Administration Multivitamins/Minerals/Vitamin C 1 tab 01/23/17 10:00 01/27/17 11:14 Tab-A-Vit - PO 1 tab DAILY LUCÍA Administration Selected Entries 01/27/17 13:55 Blood Pressure 138/66 Impression 1. KIANNA 2. UTI 3. bladder cancer 4. HTN 5. hyponatremia 6. hyperlipidemia Plan - urology input appreciated - check bmp, will order - can cont with fluids - last two urine cultures are negative - monitor output from nephrostomy - heme onc workup in progress - monitor BP Dr Hussein
[2017-01-27] MEDS: ATORVASTATIN CA 10 MG TABLET (FP) PO SCH (21:37)
--- NOTE | 2017-01-27 22:18 | PN ---
Progress Note (short form) - Note Progress Note: Radiation Oncology Pt seen and examined, chart and films reviewed, full consult to follow. 86 yo with h/o muscle invasive bladder cancer and multiple osseous lesions suspicious for mets. Destructive changes of left superior pubic ramus favor pathologic fractures. Reviewed with radiology and MRI may better delineate fracture in right acetabulum. Would obtain orthopedic surgery consult. Pending further imaging evaluation, would consider palliative RT to pelvic mets and bladder. Will follow the patient with you.
[2017-01-28] MEDS: GABAPENTIN 100 MG CAPSULE (FP) PO SCH ×3 (06:07→21:00)
[2017-01-28] MEDS ORDERED: PT OWN MED DRAWER 7, Y5N ONE (10:34)
[2017-01-28] MEDS: HEPARIN NA (PORCINE) 5,000 UNITS/ML 1ML VIAL SQ SCH ×2 (10:37→21:00)
[2017-01-28] MEDS: METOPROLOL TARTRATE 50 MG TABLET (FP) PO SCH (10:38)
[2017-01-28] MEDS: MULTIVITAMINS (DAILY MVI) TABLET (FP) PO SCH (10:38)
[2017-01-28] MEDS: amLODIPine BESYLATE 10 MG TABLET (FP) PO SCH (10:38)
--- NOTE | 2017-01-28 13:07 | PN ---
Progress Note (short form) - Note Progress Note: Patient seen and examined Complains of right hip pains on walking Last Vital Signs Temp Pulse Resp BP Pulse Ox 97.9 F 91 H 18 149/54 96 01/28/17 06:18 01/28/17 06:18 01/28/17 06:18 01/28/17 06:18 01/27/17 21:35 HEENT: SUSANA, EOM Intact Oropharynx: No thrush, No mucositis Cor: RSR, No murmurs, No gallops Lungs: decreased breath sounds Abd: Soft, Normal bowel sounds, No organomegaly Ext:No significant edema Skin: No rashes, Integument intact CBC, BMP 01/26/17 06:10 01/26/17 06:10 Current Medications Generic Name Dose Route Start Last Admin Trade Name Freq PRN Reason Stop Dose Admin Amlodipine Besylate 10 mg 01/26/17 10:00 01/28/17 10:38 Norvasc - PO 10 mg DAILY LUCÍA Administration Atorvastatin Calcium 10 mg 01/20/17 22:00 01/27/17 21:37 Lipitor - PO 10 mg HS LUCÍA Administration Gabapentin 100 mg 01/22/17 14:00 01/28/17 06:07 Neurontin - PO 100 mg TID LUCÍA Administration Heparin Sodium (Porcine) 5,000 unit 01/20/17 10:00 01/28/17 10:37 Heparin - SQ 5,000 unit BID LUCÍA Administration Sodium Chloride 1,000 mls @ 42 mls/hr 01/25/17 14:39 01/27/17 21:37 Normal Saline - IV 42 mls/hr ASDIR LUCÍA Administration Metoprolol Tartrate 50 mg 01/20/17 10:00 01/28/17 10:38 Lopressor - PO 50 mg DAILY LUCÍA Administration Multivitamins/Minerals/Vitamin C 1 tab 01/23/17 10:00 01/28/17 10:38 Tab-A-Vit - PO 1 tab DAILY LUCÍA Administration Impression Bladder ca CT of pelvis suggestive of left pelvic pathology-- yet patients symptoms are right sided especially about hip. Has spinal stenosis and L3 compression with neural formamina stenosis on MRI of lumbar spine. Will plan for MRI of pelvis
--- NOTE | 2017-01-28 15:34 | CONS ---
DATE OF CONSULTATION: 01/27/2017 REASON FOR CONSULTATION: Bladder cancer with possible metastases status post nephrostomy. REFERRING PHYSICIAN: Pratima Thomas MD HISTORY OF PRESENT ILLNESS: The patient is an 86-year-old gentleman who was admitted after a fall at home. He was brought in with a recent history of right lower back and hip pain radiating to the right lower extremity. He had a sudden fall described as his leg just giving out. He was unable to get up. He was unable to ambulate. There was no loss of consciousness or trauma. He was admitted for further management. He has a history of sciatica. He was diagnosed with a bladder cancer 1 year ago and had a transurethral resection of bladder tumor on November 29, [address] Gage Carl. He had gross hematuria. There was a 10 x 10 cm area of necrotic tumor involving the right dome, lateral wall and aurora-trigone. 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 Attempted right ureteral stent was unsuccessful due to ureteral outlet obstruction by tumor. He had right hydronephrosis. He is now status post right nephrostomy. He has not had radiation therapy. There is mention of chemotherapy in the chart, but the patient denies chemotherapy. Since being admitted, he has been ambulating with assistance with the walker. He continues to have pain in the right hip radiating to the knee. He has no pain in the left hip or lower extremity. X-ray of the right hip and pelvis showed no evidence of fracture. CT of the lumbar spine showed multilevel degenerative disc and facet joint changes with extruded disc herniation at L4-L5 , multilevel degenerative canal stenosis, and chronic L2 vertebral compression fracture without bony retropulsion. Kidney and bladder ultrasound showed moderately severe right hydronephrosis with ill-define right posterior bladder mass, urinary retention, and prostatic enlargement. MRI of the lumbar spine without contrast showed multilevel canal stenosis and disc bulge at L4-L5 more prominent on the right. As mentioned previously, he underwent percutaneous nephrostomy on the right. A CT of the abdomen and pelvis shows a 1.3-cm nodular opacity in the right lower lobe costophrenic angle, small left pleural effusion. No adenopathy in the mediastinum or hilum. Nonobstructing left renal stone, probable left adrenal adenoma, a right inguinal hernia, constipation, urinary bladder wall thickening with suggestion of mass, enlarged prostate with irregular contour. Bone scan demonstrated intense osteoblastic activity in L3 vertebral body, right acetabular roof and right pubic ramus and to a lesser extent to L4-L5, suspicious for metastasis. Right acetabular uptake can be explained by insufficiency fracture. Mottling and lucency in the left pubic ramus increases the suspicion of metastatic disease. He underwent a repeat pelvic CT today and those results are pending. He denies dizziness, headaches, nausea, vomiting, hematuria, dysuria, abdominal pain, weight loss. He has had diminished appetite. He denies unsteady gait. There is no history of radiation therapy or collagen vascular disease. 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 He had a hernia repair. ALLERGIES: No known drug allergies. CURRENT MEDICATIONS: Heparin subcutaneous, Neurontin, Lopressor, Norvasc, Lipitor, multivitamin. FAMILY HISTORY: Noncontributory. SOCIAL HISTORY: He is a . His daughter lives in [place]. He lives alone. He does not smoke. He is a social alcohol drinker. He is retired from sales for [employer]. REVIEW OF SYSTEMS: As noted above. PHYSICAL EXAMINATION: General: Well-appearing, well-nourished, elderly male in no acute distress lying in the hospital bed. Vital Signs: Temperature 97.7, blood pressure 132/53, pulse 86, respiratory rate 20, SaO2 98% on room air. HEENT: Normocephalic and atraumatic. Moist mucous membranes. Anicteric sclerae. Clear oral cavity. Neck: No adenopathy. Chest: Clear. No axillary adenopathy. Cardiovascular: Regular. Abdomen: Soft with mild suprapubic distention. No pubic symphysis tenderness. Nephrostomy tube is draining hematuria. No inguinal adenopathy. Extremities: No peripheral edema. Musculoskeletal: Mild lumbosacral tenderness without paraspinal mass. No pelvic tenderness with attention to the right hip. Neurologic: Alert and oriented x3. Cranial nerves 2-12 are intact. Sensation to light touch is intact. No sensory level. Deep tendon reflex nonfocal. Motor exam 5/5 bilateral upper extremities, 4+/5 bilateral lower extremities. Negative straight leg test. Coordination within normal limits. Gait not tested for safety reasons. RADIOLOGIC DATA: As noted above. PATHOLOGIC DATA: As noted above. LABORATORY DATA: WBCs 7.8, hemoglobin 10.9, platelet count 259,000. Electrolytes within normal limits. BUN 26, creatinine 1.4, alkaline phosphatase 118, albumin 2.9. IMPRESSION: An 86-year-old gentleman with muscle-invasive bladder cancer and multiple osseous lesions associated with fractures consistent with metastatic disease. I reviewed the imaging studies with Dr. Martin who agrees that the destructive changes of the left superior pubic ramus are consistent with pathologic fracture. An MRI may better delineate the fracture suggested in the right acetabulum on bone scan. The patient will probably benefit from radiation therapy to the pelvic fracture as well as bladder tumor to palliate bleeding, pain, and obstruction as well as to promote healing of the fractures. I would also recommend consultation from orthopedic service before further physical therapy/mobilization. Pending those evaluations, palliative radiotherapy will be further considered. I will follow the patient with you. PLAN: Pain management, MRI pelvis, orthopedic consult. Thank you for the courtesy of this consultation. EVELYN FAJARDO M.D. JOSÉ [id number] MTDD
--- NOTE | 2017-01-28 16:00 | PN ---
Physical Exam: SUBJECTIVE: Patient seen and examined. States he walked the length of the hallway x 2 today with walker. Developed pain in right buttock that radiated down right leg. OBJECTIVE: Vital Signs Period Temp Pulse Resp BP Sys/Askew Pulse Ox Last 24 Hr 97.7 F-98.3 F 81-91 18-20 120-149/53-64 96 GENERAL: The patient is awake, alert, and fully oriented, in no acute distress. HEAD: Normal with no signs of trauma. EYES: PERRL, extraocular movements intact, sclera anicteric, conjunctiva clear. No ptosis. LUNGS: Breath sounds equal, clear to auscultation bilaterally, no wheezes, no crackles, no accessory muscle use. HEART: Regular rate and rhythm, S1, S2, II/ systolic murmur, no rub or gallop. ABDOMEN: Soft, nontender, nondistended, normoactive bowel sounds, no guarding, no rebound EXTREMITIES: 2+ pulses, warm, well-perfused, no edema. NEUROLOGICAL: Cranial nerves II through XII grossly intact. Normal speech, gait not observed. Active Medications Generic Name Dose Route Start Last Admin Trade Name Freq PRN Reason Stop Dose Admin Amlodipine Besylate 10 mg 01/26/17 10:00 01/28/17 10:38 Norvasc - PO 10 mg DAILY LUCÍA Administration Atorvastatin Calcium 10 mg 01/20/17 22:00 01/27/17 21:37 Lipitor - PO 10 mg HS LUCÍA Administration Gabapentin 100 mg 01/22/17 14:00 01/28/17 14:10 Neurontin - PO 100 mg TID LUCÍA Administration Heparin Sodium (Porcine) 5,000 unit 01/20/17 10:00 01/28/17 10:37 Heparin - SQ 5,000 unit BID LUCÍA Administration Sodium Chloride 1,000 mls @ 42 mls/hr 01/25/17 14:39 01/27/17 21:37 Normal Saline - IV 42 mls/hr ASDIR LUCÍA Administration Metoprolol Tartrate 50 mg 01/20/17 10:00 01/28/17 10:38 Lopressor - PO 50 mg DAILY LUCÍA Administration Multivitamins/Minerals/Vitamin C 1 tab 01/23/17 10:00 01/28/17 10:38 Tab-A-Vit - PO 1 tab DAILY LUCÍA Administration ASSESSMENT/PLAN: 86 year-old male with a PMH of HTN, HLD, lumbar spinal stenosis with radiculopathy, bladder cancer with associated hydronephrosis s/p chemo s/p bladder scraping x 6 weeks. Presented to the ED with RLE pain and weakness. Moderately severe right hydronephrosis Acute kidney injury --Imaging shows 5.8 x 2.1cm right posterior bladder mass, moderately severe right hydroureteronephrosis --Cr has leveled off at 1.4 (baseline 1.0) --nephrostomy tube placed 01/25, sanguinous drainage --will need close outpatient followup with Dr. 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 other --01/27 CT pelvis: focal bone destruction LEFT superior pubic ramus with 2.5cm soft tissue mass --MRI pending ordered by Dr. Perez --discussed with patient, daughter and Dr. Vega; we will meet again tomorrow to discuss goals of care Urinary tract infection --pyuria on UA --01/21, 01/24 urine cultures negative --ceftriaxone course complete Lumbar spinal stenosis Right L4-L5 HNP with radiculopathy --MRI LSS: L4-L5 central spinal canal stenosis; anterolateral disc bulge more prominent on the right, clinically correlate with radiculopathy in the distribution of the right L4 nerve --not a surgical candidate per Dr. Eaton --may need EPSI if persistent pain --continue Gabapentin, daily PT --outpatient followup Hypertension --continue amlodipine, metoprolol Hyperlipidemia --continue Lipitor F/E/N Fluids: PO intake adequate Electrolytes: replete as indicated Nutrition: low sodium; NPO after midnight DVT prophylaxis: subq heparin PT evaluation Daily PT Dispo: Full Code. Visit type - Emergency Visit Emergency Visit: Yes ED Registration Date: 01/21/17 Care time: The patient presented to the Emergency Department on the above date and was hospitalized for further evaluation of their emergent condition. - New Patient This patient is new to me today: No - Critical Care Critical Care patient: No
--- NOTE | 2017-01-28 16:42 | PN ---
Progress Note, Physician History of Present Illness: Pt seen and examined at bedside. He is awake and alert. He appears comfortable. He denies shortness of breath. - Current Medication List Current Medications: Active Medications Amlodipine Besylate (Norvasc -) 10 mg PO DAILY [facility] Last Admin: 01/28/17 10:38 Dose: 10 mg Atorvastatin Calcium (Lipitor -) 10 mg PO HS [facility] Last Admin: 01/27/17 21:37 Dose: 10 mg Gabapentin (Neurontin -) 100 mg PO TID [facility] Last Admin: 01/28/17 14:10 Dose: 100 mg Heparin Sodium (Porcine) (Heparin -) 5,000 unit SQ BID [facility] Last Admin: 01/28/17 10:37 Dose: 5,000 unit Sodium Chloride (Normal Saline -) 1,000 mls @ 42 mls/hr IV ASDIR [facility] Last Admin: 01/27/17 21:37 Dose: 42 mls/hr Metoprolol Tartrate (Lopressor -) 50 mg PO DAILY [facility] Last Admin: 01/28/17 10:38 Dose: 50 mg Multivitamins/Minerals/Vitamin C (Tab-A-Vit -) 1 tab PO DAILY [facility] Last Admin: 01/28/17 10:38 Dose: 1 tab - Objective Vital Signs: Vital Signs Temperature 98 F 01/28/17 13:55 Pulse Rate 82 01/28/17 13:55 Respiratory Rate 20 01/28/17 13:55 Blood Pressure 130/61 01/28/17 13:55 O2 Sat by Pulse Oximetry (%) 96 01/27/17 21:35 Constitutional: Yes: Calm Eyes: Yes: Conjunctiva Clear HENT: Yes: Atraumatic Cardiovascular: Yes: S1, S2 Respiratory: Yes: CTA Bilaterally Gastrointestinal: Yes: Soft Genitourinary: Yes: Other (right nephrostomy) Extremities: Yes: Other (right leg dicomfort) Edema: No Neurological: Yes: Oriented Psychiatric: Yes: Oriented Labs: CBC, BMP 01/26/17 06:10 01/26/17 06:10 INR, PTT INR 1.11 (0.82-1.09) 01/19/17 15:15 Problem List - Problems (1) HLD (hyperlipidemia) Code(s): E78.5 - HYPERLIPIDEMIA, UNSPECIFIED (2) HTN (hypertension) Code(s): I10 - ESSENTIAL (PRIMARY) HYPERTENSION (3) Hyponatremia Code(s): E87.1 - HYPO-OSMOLALITY AND HYPONATREMIA (4) Leg pain, right Code(s): M79.604 - PAIN IN RIGHT LEG (5) Right leg weakness Code(s): R29.898 - OTH SYMPTOMS AND SIGNS INVOLVING THE MUSCULOSKELETAL SYSTEM (6) KIANNA (acute kidney injury) Code(s): N17.9 - ACUTE KIDNEY FAILURE, UNSPECIFIED Assessment/Plan Current Medications Generic Name Dose Route Start Last Admin Trade Name Lucia PRN Reason Stop Dose Admin Amlodipine Besylate 10 mg 01/26/17 10:00 01/28/17 10:38 Norvasc - PO 10 mg DAILY LUCÍA Administration Atorvastatin Calcium 10 mg 01/20/17 22:00 01/27/17 21:37 Lipitor - PO 10 mg HS LUCÍA Administration Gabapentin 100 mg 01/22/17 14:00 01/28/17 14:10 Neurontin - PO 100 mg TID LUCÍA Administration Heparin Sodium (Porcine) 5,000 unit 01/20/17 10:00 01/28/17 10:37 Heparin - SQ 5,000 unit BID LUCÍA Administration Sodium Chloride 1,000 mls @ 42 mls/hr 01/25/17 14:39 01/27/17 21:37 Normal Saline - IV 42 mls/hr ASDIR LUCÍA Administration Metoprolol Tartrate 50 mg 01/20/17 10:00 01/28/17 10:38 Lopressor - PO 50 mg DAILY LUCÍA Administration Multivitamins/Minerals/Vitamin C 1 tab 01/23/17 10:00 01/28/17 10:38 Tab-A-Vit - PO 1 tab DAILY LUCÍA Administration Impression 1. KIANNA 2. UTI 3. bladder cancer 4. HTN 5. hyponatremia 6. hyperlipidemia Plan - will order labs for am - cont saline - rad onc input appreciated - pt is not putting out much urine from the right nephrostomy bag - monitor creatinine - will check sodium - monitor BP Dr Hussein
[2017-01-28] MEDS: SODIUM CHLORIDE 1,000 ML IV SCH ×2 (18:03→21:32)
[2017-01-28] MEDS: ATORVASTATIN CA 10 MG TABLET (FP) PO SCH (21:00)
[2017-01-29] MEDS: GABAPENTIN 100 MG CAPSULE (FP) PO SCH ×3 (07:05→21:14)
[2017-01-29] MEDS: HEPARIN NA (PORCINE) 5,000 UNITS/ML 1ML VIAL SQ SCH ×2 (11:57→21:14)
[2017-01-29] MEDS: MULTIVITAMINS (DAILY MVI) TABLET (FP) PO SCH (11:57)
[2017-01-29] MEDS: METOPROLOL TARTRATE 50 MG TABLET (FP) PO SCH (11:57)
[2017-01-29] MEDS: amLODIPine BESYLATE 10 MG TABLET (FP) PO SCH (11:57)
--- NOTE | 2017-01-29 12:07 | PN ---
Physical Exam: SUBJECTIVE: Patient seen and examined. OBJECTIVE: Vital Signs Period Temp Pulse Resp BP Sys/Askew Pulse Ox Last 24 Hr 97.6 F-98.2 F 77-86 18-20 129-152/61-66 98 GENERAL: The patient is awake, alert, and fully oriented, in no acute distress. HEAD: Normal with no signs of trauma. EYES: PERRL, extraocular movements intact, sclera anicteric, conjunctiva clear. No ptosis. LUNGS: Breath sounds equal, clear to auscultation bilaterally, no wheezes, no crackles, no accessory muscle use. HEART: Regular rate and rhythm, S1, S2, II/ systolic murmur, no rub or gallop. ABDOMEN: Soft, nontender, nondistended, normoactive bowel sounds, no guarding, no rebound EXTREMITIES: 2+ pulses, warm, well-perfused, no edema. NEUROLOGICAL: Cranial nerves II through XII grossly intact. Normal speech, gait not observed. Active Medications Generic Name Dose Route Start Last Admin Trade Name Jeanq PRN Reason Stop Dose Admin Amlodipine Besylate 10 mg 01/26/17 10:00 01/29/17 11:57 Norvasc - PO 10 mg DAILY LUCÍA Administration Atorvastatin Calcium 10 mg 01/20/17 22:00 01/28/17 21:00 Lipitor - PO 10 mg HS LUCÍA Administration Gabapentin 100 mg 01/22/17 14:00 01/29/17 07:05 Neurontin - PO 100 mg TID LUCÍA Administration Heparin Sodium (Porcine) 5,000 unit 01/20/17 10:00 01/29/17 11:57 Heparin - SQ 5,000 unit BID LUCÍA Administration Sodium Chloride 1,000 mls @ 42 mls/hr 01/25/17 14:39 01/28/17 21:32 Normal Saline - IV 42 mls/hr ASDIR LUCÍA Administration Metoprolol Tartrate 50 mg 01/20/17 10:00 01/29/17 11:57 Lopressor - PO 50 mg DAILY LUCÍA Administration Multivitamins/Minerals/Vitamin C 1 tab 01/23/17 10:00 01/29/17 11:57 Tab-A-Vit - PO 1 tab DAILY LUCÍA Administration ASSESSMENT/PLAN 86 year-old male with a PMH of HTN, HLD, lumbar spinal stenosis with radiculopathy, bladder cancer with associated hydronephrosis s/p chemo s/p bladder scraping x 6 weeks. Presented to the ED with RLE pain and weakness. Moderately severe right hydronephrosis Acute kidney injury --Imaging shows 5.8 x 2.1cm right posterior bladder mass, moderately severe right hydroureteronephrosis --Cr 1.4 (baseline 1.0) --nephrostomy tube placed 01/25, sanguinous drainage --will need close outpatient followup with Dr. 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 other --01/27 CT pelvis: focal bone destruction LEFT superior pubic ramus with 2.5cm soft tissue mass --MRI pending ordered by Dr. Perez --meeting today with patient, daughter, and PCP Dr. Vega to discuss goals of care Urinary tract infection --pyuria on UA --01/21, 01/24 urine cultures negative --ceftriaxone course complete Lumbar spinal stenosis Right L4-L5 HNP with radiculopathy --MRI LSS: L4-L5 central spinal canal stenosis; anterolateral disc bulge more prominent on the right, clinically correlate with radiculopathy in the distribution of the right L4 nerve --not a surgical candidate per Dr. Eaton --may need EPSI if persistent pain --continue Gabapentin, daily PT --outpatient followup Hypertension --continue amlodipine, metoprolol Hyperlipidemia --continue Lipitor F/E/N Fluids: PO intake adequate Electrolytes: replete as indicated Nutrition: low sodium; NPO after midnight DVT prophylaxis: subq heparin PT evaluation Daily PT Dispo: Full Code. Visit type - Emergency Visit Emergency Visit: Yes ED Registration Date: 01/21/17 Care time: The patient presented to the Emergency Department on the above date and was hospitalized for further evaluation of their emergent condition. - New Patient This patient is new to me today: No - Critical Care Critical Care patient: No
--- NOTE | 2017-01-29 12:31 | PN ---
Progress Note (short form) - Note Progress Note: Progress Note (short form) - Note Progress Note: Patient seen and examined Complains of right hip pains on walking He is in a good mood today along with his family Vital Signs Period Temp Pulse Resp BP Sys/Askew Pulse Ox Last 24 Hr 97.6 F-98.2 F 77-86 18-20 129-152/61-66 98 HEENT: SUSANA, EOM Intact Oropharynx: No thrush, No mucositis Cor: RSR, No murmurs, No gallops Lungs: decreased breath sounds Abd: Soft, Normal bowel sounds, No organomegaly Has a drain Ext:No significant edema CBC, BMP 01/26/17 06:10 01/26/17 06:10 Active Medications Generic Name Dose Route Start Last Admin Trade Name Freq PRN Reason Stop Dose Admin Amlodipine Besylate 10 mg 01/26/17 10:00 01/29/17 11:57 Norvasc - PO 10 mg DAILY LUCÍA Administration Atorvastatin Calcium 10 mg 01/20/17 22:00 01/28/17 21:00 Lipitor - PO 10 mg HS LUCÍA Administration Gabapentin 100 mg 01/22/17 14:00 01/29/17 07:05 Neurontin - PO 100 mg TID LUCÍA Administration Heparin Sodium (Porcine) 5,000 unit 01/20/17 10:00 01/29/17 11:57 Heparin - SQ 5,000 unit BID LUCÍA Administration Sodium Chloride 1,000 mls @ 42 mls/hr 01/25/17 14:39 01/28/17 21:32 Normal Saline - IV 42 mls/hr ASDIR LUCÍA Administration Metoprolol Tartrate 50 mg 01/20/17 10:00 01/29/17 11:57 Lopressor - PO 50 mg DAILY LUCÍA Administration Multivitamins/Minerals/Vitamin C 1 tab 01/23/17 10:00 01/29/17 11:57 Tab-A-Vit - PO 1 tab DAILY LUCÍA Administration Impression : Metastatic Bladder ca CT of pelvis suggestive of left pelvic pathology-- yet patients symptoms are right sided especially about hip. Has spinal stenosis and L3 compression with neural formamina stenosis on MRI of lumbar spine. Plan is for MRI of pelvis
--- NOTE | 2017-01-29 12:38 | PN ---
Progress Note, Physician History of Present Illness: Renal f/u Pt in NAD lying flat in bed Pt states there was a full R PCN bag this am which is presently empty Pt also been passing urine but is incontinent No recent labs noted - Current Medication List Current Medications: Active Medications Amlodipine Besylate (Norvasc -) 10 mg PO DAILY [facility] Last Admin: 01/29/17 11:57 Dose: 10 mg Atorvastatin Calcium (Lipitor -) 10 mg PO HS [facility] Last Admin: 01/28/17 21:00 Dose: 10 mg Gabapentin (Neurontin -) 100 mg PO TID [facility] Last Admin: 01/29/17 07:05 Dose: 100 mg Heparin Sodium (Porcine) (Heparin -) 5,000 unit SQ BID [facility] Last Admin: 01/29/17 11:57 Dose: 5,000 unit Sodium Chloride (Normal Saline -) 1,000 mls @ 42 mls/hr IV ASDIR [facility] Last Admin: 01/28/17 21:32 Dose: 42 mls/hr Metoprolol Tartrate (Lopressor -) 50 mg PO DAILY [facility] Last Admin: 01/29/17 11:57 Dose: 50 mg Multivitamins/Minerals/Vitamin C (Tab-A-Vit -) 1 tab PO DAILY [facility] Last Admin: 01/29/17 11:57 Dose: 1 tab - Objective Vital Signs: Vital Signs Temperature 97.6 F 01/29/17 06:00 Pulse Rate 86 01/29/17 06:00 Respiratory Rate 18 01/29/17 06:00 Blood Pressure 144/66 01/29/17 06:00 O2 Sat by Pulse Oximetry (%) 98 01/28/17 21:00 Constitutional: Yes: No Distress Cardiovascular: Yes: Murmur, S1, S2. No: JVD Respiratory: Yes: CTA Bilaterally Gastrointestinal: Yes: Soft. No: Tenderness, Rebound Edema: No Labs: CBC, BMP 01/26/17 06:10 01/26/17 06:10 INR, PTT INR 1.11 (0.82-1.09) 01/19/17 15:15 Assessment/Plan Impression 1. KIANNA 2. UTI 3. Bladder cancer 4. HTN controlled 5. Hyponatremia 6. Hyperlipidemia Plan CMP and CBC ordered for the am Continue with present IVF Dr Culp
[2017-01-29] MEDS: SODIUM CHLORIDE 1,000 ML IV SCH (20:33)
[2017-01-29] MEDS: ATORVASTATIN CA 10 MG TABLET (FP) PO SCH (21:14)
[2017-01-30] MEDS: SODIUM CHLORIDE 1,000 ML IV SCH (04:15)
[2017-01-30] MEDS: GABAPENTIN 100 MG CAPSULE (FP) PO SCH ×3 (06:14→22:11)
[2017-01-30 08:37] LABS: BASOPHIL 0.7 % (0-2.0); MCH 27.9 pg (25.7-33.7); MCHC 33.9 g/dl (32.0-35.9); MEAN CELL VOLUME 82.4 fl (80-96); MEAN PLT VOLUME 7.2 fl (7.5-11.1); PLATELET COUNT 278 K/MM3 (134-434); RDW 13.8 % (11.9-15.9); WHITE BLOOD COUNT 8.8 K/mm3 (4.0-10.0)
[2017-01-30 09:24] LABS: ALBUMIN 3.2 g/dl (3.4-5.0); BILIRUBIN,TOTAL 0.5 mg/dL (0.2-1.0); CALCIUM 8.5 mg/dL (8.5-10.1); CREATININE 1.3 mg/dL (0.7-1.3); MAGNESIUM 2.1 mg/dL (1.8-2.4); PHOSPHOROUS 2.9 mg/dL (2.5-4.9); TOT PROT 6.3 g/dl (6.4-8.2)
[2017-01-30] MEDS: MULTIVITAMINS (DAILY MVI) TABLET (FP) PO SCH (10:17)
[2017-01-30] MEDS: METOPROLOL TARTRATE 50 MG TABLET (FP) PO SCH (10:17)
[2017-01-30] MEDS: amLODIPine BESYLATE 10 MG TABLET (FP) PO SCH (10:17)
[2017-01-30] MEDS: HEPARIN NA (PORCINE) 5,000 UNITS/ML 1ML VIAL SQ SCH ×2 (10:18→22:11)
--- NOTE | 2017-01-30 12:10 | PN ---
Progress Note, Physician History of Present Illness: Renal f/u Pt in NAD while OOB in a chair Appetite is poor since he doesn't like the food Slightly bloody urine in the PCN bag - Current Medication List Current Medications: Active Medications Amlodipine Besylate (Norvasc -) 10 mg PO DAILY [facility] Last Admin: 01/30/17 10:17 Dose: 10 mg Atorvastatin Calcium (Lipitor -) 10 mg PO HS [facility] Last Admin: 01/29/17 21:14 Dose: 10 mg Gabapentin (Neurontin -) 100 mg PO TID [facility] Last Admin: 01/30/17 06:14 Dose: 100 mg Heparin Sodium (Porcine) (Heparin -) 5,000 unit SQ BID [facility] Last Admin: 01/30/17 10:18 Dose: 5,000 unit Metoprolol Tartrate (Lopressor -) 50 mg PO DAILY [facility] Last Admin: 01/30/17 10:17 Dose: 50 mg Multivitamins/Minerals/Vitamin C (Tab-A-Vit -) 1 tab PO DAILY [facility] Last Admin: 01/30/17 10:17 Dose: 1 tab - Objective Vital Signs: Vital Signs Temperature 97.8 F 01/30/17 06:14 Pulse Rate 89 01/30/17 06:14 Respiratory Rate 18 01/30/17 06:14 Blood Pressure 153/63 01/30/17 06:14 O2 Sat by Pulse Oximetry (%) 98 01/29/17 21:25 Constitutional: Yes: No Distress Cardiovascular: Yes: S1, S2. No: JVD Respiratory: Yes: CTA Bilaterally Gastrointestinal: Yes: Soft. No: Tenderness, Rebound Edema: No Labs: CBC, BMP 01/30/17 06:00 01/30/17 06:00 INR, PTT INR 1.11 (0.82-1.09) 01/19/17 15:15 Assessment/Plan Impression 1. KIANNA stabilized with high BUN to Cr ratio and some hyponatremia 2. UTI 3. Bladder cancer 4. HTN controlled 5. Hyperlipidemia Plan Will add NaCl tablets at this time while monitoring the BP which is presently well controlled BMP and CBC in am Await official result of the pelvic MRI Dr Culp
--- NOTE | 2017-01-30 12:51 | PN ---
Progress Note (short form) - Note Progress Note: Progress Note (short form) - Note Progress Note: He has gone out for a walk Vital Signs Period Temp Pulse Resp BP Sys/Askew Pulse Ox Last 24 Hr 97.8 F-98.2 F 80-89 16-20 127-153/53-72 98 CBC, BMP 01/30/17 06:00 01/30/17 06:00 Active Medications Generic Name Dose Route Start Last Admin Trade Name Freq PRN Reason Stop Dose Admin Amlodipine Besylate 10 mg 01/26/17 10:00 01/30/17 10:17 Norvasc - PO 10 mg DAILY LUCÍA Administration Atorvastatin Calcium 10 mg 01/20/17 22:00 01/29/17 21:14 Lipitor - PO 10 mg HS LUCÍA Administration Gabapentin 100 mg 01/22/17 14:00 01/30/17 06:14 Neurontin - PO 100 mg TID LUCÍA Administration Heparin Sodium (Porcine) 5,000 unit 01/20/17 10:00 01/30/17 10:18 Heparin - SQ 5,000 unit BID LUCÍA Administration Metoprolol Tartrate 50 mg 01/20/17 10:00 01/30/17 10:17 Lopressor - PO 50 mg DAILY LUCÍA Administration Multivitamins/Minerals/Vitamin C 1 tab 01/23/17 10:00 01/30/17 10:17 Tab-A-Vit - PO 1 tab DAILY LUCÍA Administration Sodium Chloride 1 gm 01/30/17 13:30 Sodium Chloride Tablet - PO BID LUCÍA Impression : Metastatic Bladder ca CT of pelvis suggestive of left pelvic pathology-- yet patients symptoms are right sided especially about hip. Has spinal stenosis and L3 compression with neural formamina stenosis on MRI of lumbar spine. a/w MRI pelvis results
--- NOTE | 2017-01-30 14:26 | PN ---
Physical Exam: SUBJECTIVE: Patient seen and examined. OBJECTIVE: Vital Signs Period Temp Pulse Resp BP Sys/Askew Pulse Ox Last 24 Hr 97.8 F-98.0 F 80-89 18-20 127-153/53-63 98 GENERAL: The patient is awake, alert, and fully oriented, in no acute distress. HEAD: Normal with no signs of trauma. EYES: PERRL, extraocular movements intact, sclera anicteric, conjunctiva clear. No ptosis. LUNGS: Breath sounds equal, clear to auscultation bilaterally, no wheezes, no crackles, no accessory muscle use. HEART: Regular rate and rhythm, S1, S2, II/ systolic murmur, no rub or gallop. ABDOMEN: Soft, nontender, nondistended, normoactive bowel sounds, no guarding, no rebound EXTREMITIES: 2+ pulses, warm, well-perfused, no edema. NEUROLOGICAL: Cranial nerves II through XII grossly intact. Normal speech, gait not observed. Laboratory Results - last 24 hr 01/30/17 01/30/17 06:00 06:00 WBC 8.8 RBC 3.91 L Hgb 10.9 L Hct 32.2 L MCV 82.4 MCHC 33.9 RDW 13.8 Plt Count 278 MPV 7.2 L Neutrophils % 83.0 H Lymphocytes % 7.6 L D Monocytes % 7.7 Eosinophils % 1.0 Basophils % 0.7 Sodium 133 L Potassium 4.6 Chloride 96 L Carbon Dioxide 25 Anion Gap 12 BUN 30 H Creatinine 1.3 Creat Clearance w eGFR 52.10 Random Glucose 97 Calcium 8.5 Phosphorus 2.9 Magnesium 2.1 Total Bilirubin 0.5 D AST 19 D ALT 35 D Alkaline Phosphatase 201 H D Total Protein 6.3 L Albumin 3.2 L Active Medications Generic Name Dose Route Start Last Admin Trade Name Freq PRN Reason Stop Dose Admin Amlodipine Besylate 10 mg 01/26/17 10:00 01/30/17 10:17 Norvasc - PO 10 mg DAILY L[facility]ÍA Administration Atorvastatin Calcium 10 mg 01/20/17 22:00 01/29/17 21:14 Lipitor - PO 10 mg HS LUCÍA Administration Gabapentin 100 mg 01/22/17 14:00 01/30/17 06:14 Neurontin - PO 100 mg TID LUCÍA Administration Heparin Sodium (Porcine) 5,000 unit 01/20/17 10:00 01/30/17 10:18 Heparin - SQ 5,000 unit BID L[facility]ÍA Administration Metoprolol Tartrate 50 mg 01/20/17 10:00 01/30/17 10:17 Lopressor - PO 50 mg DAILY [facility] Administration Multivitamins/Minerals/Vitamin C 1 tab 01/23/17 10:00 01/30/17 10:17 Tab-A-Vit - PO 1 tab DAILY [facility] Administration Sodium Chloride 1 gm 01/30/17 13:30 Sodium Chloride Tablet - PO BID [facility] ASSESSMENT/PLAN 86 year-old male with a PMH of HTN, HLD, lumbar spinal stenosis with radiculopathy, bladder cancer with associated hydronephrosis s/p chemo s/p bladder scraping x 6 weeks. Presented to the ED with RLE pain and weakness. Moderately severe right hydronephrosis Acute kidney injury --Imaging shows 5.8 x 2.1cm right posterior bladder mass, moderately severe right hydroureteronephrosis --Cr 1.4 (baseline 1.0) --nephrostomy tube placed 01/25, sanguinous drainage --will need close outpatient followup with Dr. 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 other --01/27 CT pelvis: focal bone destruction LEFT superior pubic ramus with 2.5cm soft tissue mass --MRI pelvis done, pending dictation Urinary tract infection --pyuria on UA --01/21, 01/24 urine cultures negative --ceftriaxone course complete Lumbar spinal stenosis Right L4-L5 HNP with radiculopathy --MRI LSS: L4-L5 central spinal canal stenosis; anterolateral disc bulge more prominent on the right, clinically correlate with radiculopathy in the distribution of the right L4 nerve --not a surgical candidate per Dr. Eaton --may need EPSI if persistent pain --continue Gabapentin, daily PT --outpatient followup Hypertension --continue amlodipine, metoprolol Hyperlipidemia --continue Lipitor F/E/N Fluids: PO intake adequate Electrolytes: replete as indicated Nutrition: low sodium DVT prophylaxis: subq heparin PT evaluation Daily PT Dispo: Patient does not want surgery, opts for radiation treatment +/- adjuvant therapy to be discussed with oncology team after testing complete. Wants to go to [facility] where he will be followed by his PCP Dr. Vega. Full Code. Visit type - Emergency Visit Emergency Visit: Yes ED Registration Date: 01/21/17 Care time: The patient presented to the Emergency Department on the above date and was hospitalized for further evaluation of their emergent condition. - New Patient This patient is new to me today: No - Critical Care Critical Care patient: No
[2017-01-30] MEDS: SODIUM CHLORIDE 1 GM TABLET PO SCH ×2 (14:50→22:11)
[2017-01-30] MEDS: ATORVASTATIN CA 10 MG TABLET (FP) PO SCH (22:11)
[2017-01-31] MEDS: GABAPENTIN 100 MG CAPSULE (FP) PO SCH ×2 (06:28→16:36)
[2017-01-31 07:36] LABS: BASOPHIL 0.5 % (0-2.0); EOSINOPHIL 1.9 % (0-4.5); MCH 27.7 pg (25.7-33.7); MCHC 33.5 g/dl (32.0-35.9); MEAN CELL VOLUME 82.6 fl (80-96); MEAN PLT VOLUME 7.2 fl (7.5-11.1); NEUTROPHILS 78.4 % (42.8-82.8); PLATELET COUNT 298 K/MM3 (134-434); RDW 14.4 % (11.9-15.9); WHITE BLOOD COUNT 7.4 K/mm3 (4.0-10.0)
[2017-01-31 08:03] LABS: CALCIUM 8.6 mg/dL (8.5-10.1); CREATININE 1.4 mg/dL (0.7-1.3)
[2017-01-31] MEDS: HEPARIN NA (PORCINE) 5,000 UNITS/ML 1ML VIAL SQ SCH (10:33)
[2017-01-31] MEDS: METOPROLOL TARTRATE 50 MG TABLET (FP) PO SCH (10:33)
[2017-01-31] MEDS: amLODIPine BESYLATE 10 MG TABLET (FP) PO SCH (10:33)
[2017-01-31] MEDS: MULTIVITAMINS (DAILY MVI) TABLET (FP) PO SCH (10:33)
[2017-01-31] MEDS: SODIUM CHLORIDE 1 GM TABLET PO SCH (10:36)
[2017-01-31] MEDS ORDERED: PT OWN MED DRAWER 7, Y5N ONE (11:40)
--- NOTE | 2017-01-31 12:48 | PN ---
Progress Note (short form) - Note Progress Note: PAtient seen and examined No specific complaints pain rather well controlled Last Vital Signs Temp Pulse Resp BP Pulse Ox 97.5 F L 78 20 138/66 98 01/27/17 13:55 01/27/17 13:55 01/27/17 13:55 01/27/17 13:55 01/26/17 21:00 HEENT: SUSANA, EOM Intact Cor: RSR, No murmurs, No gallops Lungs: Clear to P&A Abd: Soft, Normal bowel sounds, Ext:No significant edema Labs reviewed Meds rviewed A/P 86 y/o patient with muscle invasive bladder cancer, c/o rt. hip pain Bone scan shows destructive lesion in pubic ramus, acetabulum, on the right. MRI --lumbar stenosis Lt. superior pubic ramus and inf. pubic ramus lesions, rt. acetabular lesion, L3 fx, bladder mass For palliative RT ? zometa
--- NOTE | 2017-01-31 14:12 | PN ---
Progress Note, Physician History of Present Illness: Pt seen and examined at bedside. He is awake and alert. He denies shortness of breath. - Current Medication List Current Medications: Active Medications Amlodipine Besylate (Norvasc -) 10 mg PO DAILY [facility] Last Admin: 01/31/17 10:33 Dose: 10 mg Atorvastatin Calcium (Lipitor -) 10 mg PO HS [facility] Last Admin: 01/30/17 22:11 Dose: 10 mg Gabapentin (Neurontin -) 100 mg PO TID [facility] Last Admin: 01/31/17 06:28 Dose: 100 mg Heparin Sodium (Porcine) (Heparin -) 5,000 unit SQ BID [facility] Last Admin: 01/31/17 10:33 Dose: 5,000 unit Metoprolol Tartrate (Lopressor -) 50 mg PO DAILY [facility] Last Admin: 01/31/17 10:33 Dose: 50 mg Multivitamins/Minerals/Vitamin C (Tab-A-Vit -) 1 tab PO DAILY [facility] Last Admin: 01/31/17 10:33 Dose: 1 tab Sodium Chloride (Sodium Chloride Tablet -) 1 gm PO BID [facility] Last Admin: 01/31/17 10:36 Dose: 1 gm - Objective Vital Signs: Vital Signs Temperature 97.7 F 01/31/17 06:00 Pulse Rate 98 H 01/31/17 06:00 Respiratory Rate 18 01/31/17 06:00 Blood Pressure 128/59 01/31/17 06:00 O2 Sat by Pulse Oximetry (%) 97 01/30/17 22:00 Constitutional: Yes: Calm Eyes: Yes: Conjunctiva Clear HENT: Yes: Atraumatic Neck: Yes: Supple Cardiovascular: Yes: S1, S2 Respiratory: Yes: CTA Bilaterally Gastrointestinal: Yes: Soft Genitourinary: Yes: Other (right nephrostomy) Musculoskeletal: Yes: Other (right leg pain) Edema: No Neurological: Yes: Oriented Psychiatric: Yes: Oriented Labs: CBC, BMP 01/31/17 06:00 01/31/17 06:00 INR, PTT INR 1.11 (0.82-1.09) 01/19/17 15:15 Problem List - Problems (1) HLD (hyperlipidemia) Code(s): E78.5 - HYPERLIPIDEMIA, UNSPECIFIED (2) HTN (hypertension) Code(s): I10 - ESSENTIAL (PRIMARY) HYPERTENSION (3) Hyponatremia Code(s): E87.1 - HYPO-OSMOLALITY AND HYPONATREMIA (4) Leg pain, right Code(s): M79.604 - PAIN IN RIGHT LEG (5) Right leg weakness Code(s): R29.898 - OTH SYMPTOMS AND SIGNS INVOLVING THE MUSCULOSKELETAL SYSTEM (6) KIANNA (acute kidney injury) Code(s): N17.9 - ACUTE KIDNEY FAILURE, UNSPECIFIED Assessment/Plan Current Medications Generic Name Dose Route Start Last Admin Trade Name Lucia PRN Reason Stop Dose Admin Amlodipine Besylate 10 mg 01/26/17 10:00 01/31/17 10:33 Norvasc - PO 10 mg DAILY L[facility]ÍA Administration Atorvastatin Calcium 10 mg 01/20/17 22:00 01/30/17 22:11 Lipitor - PO 10 mg HS LUCÍA Administration Gabapentin 100 mg 01/22/17 14:00 01/31/17 06:28 Neurontin - PO 100 mg TID LUCÍA Administration Heparin Sodium (Porcine) 5,000 unit 01/20/17 10:00 01/31/17 10:33 Heparin - SQ 5,000 unit BID LUCÍA Administration Metoprolol Tartrate 50 mg 01/20/17 10:00 01/31/17 10:33 Lopressor - PO 50 mg DAILY L[facility]ÍA Administration Multivitamins/Minerals/Vitamin C 1 tab 01/23/17 10:00 01/31/17 10:33 Tab-A-Vit - PO 1 tab DAILY [facility]A Administration Sodium Chloride 1 gm 01/30/17 13:30 01/31/17 10:36 Sodium Chloride Tablet - PO 1 gm BID L[facility]ÍA Administration Impression 1. KIANNA 2. UTI 3. bladder cancer 4. HTN 5. hyponatremia 6. hyperlipidemia Plan - will need to monitor sodium and renal function - monitor nephrostomy output - mri shows neoplastic disease - blood pressure is stable - sodium tablet trial Dr Hussein
--- NOTE | 2017-01-31 14:14 | DS ---
Physical Exam: SUBJECTIVE: Patient seen and examined OBJECTIVE: Vital Signs Period Temp Pulse Resp BP Sys/Askew Pulse Ox Last 24 Hr 97.5 F-97.8 F 83-98 18-20 121-135/54-69 97 PHYSICAL EXAM GENERAL: The patient is awake, alert, and fully oriented, in no acute distress. HEAD: Normal with no signs of trauma. EYES: PERRL, extraocular movements intact, sclera anicteric, conjunctiva clear. No ptosis. LUNGS: Breath sounds equal, clear to auscultation bilaterally, no wheezes, no crackles, no accessory muscle use. HEART: Regular rate and rhythm, S1, S2, II/ systolic murmur, no rub or gallop. ABDOMEN: Soft, nontender, nondistended, normoactive bowel sounds, no guarding, no rebound EXTREMITIES: 2+ pulses, warm, well-perfused, no edema. NEUROLOGICAL: Cranial nerves II through XII grossly intact. Normal speech, gait not observed. Laboratory Results - last 24 hr 01/31/17 01/31/17 06:00 06:00 WBC 7.4 RBC 4.06 Hgb 11.2 L Hct 33.5 L MCV 82.6 MCHC 33.5 RDW 14.4 Plt Count 298 MPV 7.2 L Neutrophils % 78.4 Lymphocytes % 10.4 D Monocytes % 8.8 Eosinophils % 1.9 D Basophils % 0.5 Sodium 133 L Potassium 4.9 Chloride 97 L Carbon Dioxide 28 Anion Gap 8 BUN 32 H Creatinine 1.4 H Random Glucose 94 Calcium 8.6 HOSPITAL COURSE: Date of Admission:01/21/17 Date of Discharge: 01/31/17 86 year-old male with a PMH of HTN, HLD, lumbar spinal stenosis with radiculopathy, bladder cancer with associated hydronephrosis s/p chemo s/p bladder scraping x 6 weeks. Presented to the ED with RLE pain and weakness. Moderately severe right hydronephrosis Acute kidney injury --Imaging showed 5.8 x 2.1cm right posterior bladder mass, moderately severe right hydroureteronephrosis --Cr 1.4 (baseline 1.0) --nephrostomy tube placed 01/25, sanguinous drainage --will need close outpatient followup with Dr. 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 other --01/27 CT pelvis: focal bone destruction LEFT superior pubic ramus with 2.5cm soft tissue mass --01/29 MRI pelvis: neoplastic disease of right acetabular roof, right iliac wing, right gluteus medius muscle (soft tissue infiltration), left superior and inferior pubic ramus, L3, L4, L5 vertebral bodies, pathologic L3 compression fracture; focal mass lesion urinary bladder Urinary tract infection --pyuria on UA --01/21, 01/24 urine cultures negative --ceftriaxone course complete Lumbar spinal stenosis Right L4-L5 HNP with radiculopathy --MRI LSS: L4-L5 central spinal canal stenosis; anterolateral disc bulge more prominent on the right, clinically correlate with radiculopathy in the distribution of the right L4 nerve --not a surgical candidate per Dr. Eaton --may need EPSI if persistent pain --continue Gabapentin, daily PT --outpatient followup Hypertension --continue amlodipine, metoprolol Hyperlipidemia --continue Lipitor Dispo: Patient does not want surgery, opts for radiation treatment +/- adjuvant therapy to be discussed with oncology team after testing complete. Wants to go to [facility] where he will be followed by his PCP Dr. Vega. Full Code. Minutes to complete discharge: 40 Discharge Summary Reason For Visit: LEG PAIN WEAKNESS RIGHT Current Active Problems KIANNA (acute kidney injury) (Acute) Bladder cancer (Acute) DVT prophylaxis (Acute) HLD (hyperlipidemia) (Acute) HTN (hypertension) (Acute) Hyponatremia (Acute) Leg pain, right (Acute) Right leg weakness (Acute) UTI (urinary tract infection) (Acute) Condition: Improved - Instructions Referrals: Aureliano Vega MD [Primary Care Provider] - Pratima Thomas MD [Staff Physician] - Disposition: HOME - Home Medications Comprehensive Discharge Medication List: Ambulatory Orders Atorvastatin Ca [Lipitor] 10 mg PO HS #0 tablet 02/09/14 Hydrochlorothiazide [Hctz -] 25 mg PO DAILY #0 tablet 02/09/14 Metoprolol Tartrate [Lopressor -] 50 mg PO DAILY #0 tablet 02/09/14 Amlodipine Besylate [Norvasc -] 10 mg PO DAILY tablet 01/31/17 Gabapentin [Neurontin -] 100 mg PO TID #90 mg 01/31/17 Sodium Chloride Tablet - 1 gm PO BID tablet 01/31/17 This patient is new to me today: No Emergency Visit: Yes ED Registration Date: 01/21/17 Care time: The patient presented to the Emergency Department on the above date and was hospitalized for further evaluation of their emergent condition. Critical Care patient: No - Discharge Referral Referred to [facility] Med P.C.: No
[2017-01-31 15:04] VITALS: BP 111/52; PULSE 78; TEMP 97.3
== END 2017-01-31 18:54 | disposition home or self-care (01) | DRG 543 ==
LOC: JER 14:37 → JERBED 01-20 00:01 → UNDOADMOB 01-20 00:31 → JERBED 01-20 00:31 → J7W 01-20 02:06 → OBSVTOIN 01-21 15:10
PROVIDERS: ADMIT Internal Medicine; ATTEND Nurse Practitioner Acute Care
PROC: 0T9030Z Drainage of Right Kidney with Drainage Device, Percutaneous Approach (ICD-10-PCS; principal; 2017-01-24)
PROC: BT0 Imaging, Urinary System, Plain Radiography (ICD-10-PCS; 2017-01-24)
DX: C79.51 Secondary malignant neoplasm of bone (principal); N17.9 Acute kidney failure, unspecified; N39.0 Urinary tract infection, site not specified; E87.1 Hypo-osmolality and hyponatremia; M84.459A Pathological fracture, hip, unspecified, initial encounter for fracture; J90 Pleural effusion, not elsewhere classified; N13.30 Unspecified hydronephrosis; M51.16 Intervertebral disc disorders with radiculopathy, lumbar region; I10 Essential (primary) hypertension; E78.5 Hyperlipidemia, unspecified; M54.30 Sciatica, unspecified side; Z87.891 Personal history of nicotine dependence; E86.0 Dehydration; C67.9 Malignant neoplasm of bladder, unspecified; R26.81 Unsteadiness on feet; M47.896 Other spondylosis, lumbar region; M48.06 Spinal stenosis, lumbar region
CPT/HCPCS: 36415; 50432; 71010-TC; 71250-TC; 72131-TC; 72148-TC; 72192-TC; 72195-TC; 73523-TC; 74176-TC; 76098-TC; 76775-TC; 76856-TC; 76998-TC; 78306-TC; 80048; 80053; 81003; 81015; 82436; 82570; 83735; 84100; 84133; 84300; 85025; 85610; 87040; 87086; 87899; 93005; 93010; 97116-GP; 97162-PG; 99285-25; A4358; A9503; C1729; C1769; G0378; J1644; Q9967

== ENCOUNTER 2017-02-23 08:04 | Inpatient (IN) | payer OTHER, BC ==
[2017-02-23] MEDS ORDERED: LIDOCAINE HCL 2% JELLY (30 ML/TUBE) TP ONE (09:01)
--- NOTE | 2017-02-23 09:01 | PDOC ---
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 Pt presents to the ER with neighbor stating that he has noted hematuria since last night He has noted approximately 5 episodes where he found blood filling his diaper No abdominal or suprapubic pain, he does have a "Sensation" when he is passing blood He has noted that he is also passing "Debris" similar to what he passed after his bladder scraping Patient denies fever, chills, cough, SOB, CP, AP, N/V/D He is s/p recent admission to [facility], s/p 2 week admission to rehab He has had decreased po intake, related he thinks to not eating well since his 3 years ago PCP: Dr. Vega Urologist: Dr. Martinez PAST MEDICAL HISTORY: See HPI PAST SURGICAL HISTORY: Hernia Repair, bladder scraping Social History: Smoking: Former- Cigar Alcohol: None Drugs: None Lives alone, passed 3 years ago Allergies: NKDA 02/23/17 08:13 GENERAL/CONSTITUTIONAL: No: fever, chills, weakness, loss of appetite. HEAD, EYES, EARS, NOSE AND THROAT: No: change in vision, ear pain, discharge, sore throat, throat swelling. CARDIOVASCULAR: No: chest pain, lightheadedness, palpitations, syncope RESPIRATORY: No: cough, shortness of breath, wheezing, hemoptysis, stridor. GASTROINTESTINAL: No: nausea, vomiting, diarrhea, abdominal cramping, rectal bleeding, constipation. GENITOURINARY: Yes: hematuria, passing debris, right nephrostomy tube MUSCULOSKELETAL: No: back pain, neck pain, joint pain, muscle swelling or pain SKIN: No: lesions, pallor, rash or easy bruising. NEUROLOGIC: No: headache, vertigo, paresthesias, weakness ENDOCRINE: No: unexplained weight gain or loss HEMATOLOGIC/LYMPHATIC: No: anemia, easy bleeding, swelling nodes. GENERAL: The patient is in no acute distress. HEAD: Normal with no signs of trauma. EYES: PERRLA, EOMI, sclera anicteric, conjunctiva clear. ENT: Ears normal, nares patent, oropharynx clear without exudates. Moist mucous membranes. NECK: Normal range of motion, supple without lymphadenopathy, JVD, or masses. LUNGS: Breath sounds equal, clear to auscultation bilaterally. HEART: Regular rate and rhythm, normal S1 and S2 without murmur, rub or gallop. ABDOMEN: Soft, nontender, normoactive bowel sounds. No guarding, no rebound. No masses palpable. EXTREMITIES: Normal range of motion, no edema. No clubbing or cyanosis. No erythema, or tenderness. NEUROLOGICAL: Cranial nerves II through XII grossly intact. Normal speech. No focal neurological deficits. MUSCULOSKELETAL: (+) right nephrostomy tube in place, no surrounding erythema, nephrostomy tube with clear urine SKIN: Warm, Dry, normal turgor, no rashes or lesions noted. Past History - Past Medical History Allergies/Adverse Reactions: Allergies Allergy/AdvReac Type Severity Reaction Status Date / Time No Known Drug Allergies Allergy Verified 02/23/17 08:07 Home Medications: Ambulatory Orders Atorvastatin Ca [Lipitor] 10 mg PO HS #0 tablet 02/09/14 Hydrochlorothiazide [Hctz -] 25 mg PO DAILY #0 tablet 02/09/14 Metoprolol Tartrate [Lopressor -] 50 mg PO DAILY #0 tablet 02/09/14 Amlodipine Besylate [Norvasc -] 10 mg PO DAILY tablet 01/31/17 Gabapentin [Neurontin -] 100 mg PO TID #90 mg 01/31/17 Sodium Chloride Tablet - 1 gm PO BID tablet 01/31/17 Cancer: Yes (BLADDER) Disorders: Yes (BPH) HTN: Yes (controlled with meds) Hypercholesterolemia: Yes - Surgical History Abdominal Surgery: Yes (hernia x2) - Psycho/Social/Smoking Cessation Hx Anxiety: No Suicidal Ideation: No Smoking History: Never smoked Have you smoked in the past 12 months: No Number of Cigarettes Smoked Daily: 0 If you are a former smoker, when did you quit?: 12YRS AGO Cigars Per Day: 3 Hx Alcohol Use: No Drug/Substance Use Hx: No Substance Use Type: None Heart Score/ECG Review #1 ECG reviewed & interpreted by me at: 12:12 02/23/17 12:15 Sinus rhythm, rate of 95 bpm Left axis deviation No ST elevations or depressions T waves upright ED Treatment Course - LABORATORY CBC & Chemistry Diagram: 02/23/17 08:52 02/23/17 08:52 Medical Decision Making - Medical Decision Making 02/23/17 09:45 Laboratory Tests 01/31/17 02/23/17 06:00 08:52 Sodium 133 L 136 Potassium 4.9 4.0 Chloride 97 L 100 BUN 32 H 51 H Creatinine 1.4 H 3.3 H Random Glucose 94 118 H 02/23/17 10:11 Laboratory Tests 01/31/17 02/23/17 06:00 08:52 WBC 7.4 13.8 H Hgb 11.2 L 10.7 L Hct 33.5 L 31.0 L Plt Count 298 232 Neutrophils % 89.9 H Will admit for hydration as pt has renal insufficiency Two calls placed to Dr Vega No response Call placed to [facility] to confirm who admits for Dr Vega Apparently Dr King does Will contact her 02/23/17 11:04 Laboratory Tests 02/23/17 08:52 Urine Blood 3+ H Urine Nitrite Negative Ur Leukocyte Esterase 1+ H Urine RBC 10-20 Urine WBC 3-5 Ur Epithelial Cells Moderate Amorphous Phosphates Few Urine Bacteria Many Hyaline Casts 3-5 02/23/17 12:[address] Vega Case reviewed with him Apparently, pt was supposed to be started on Hospice care? Palliative RT He will be coming to see this patient He is not sure if he can admit to [facility], will contact the [facility] states pt can be admitted to Dr Vega He is en route to see this patient Will plan to admit to him Clinical impression: acute renal insufficiency, hematuria 02/23/17 12:11 US demonstrates: Right kidney is small, no hydronephrosis or masses. Left kidney demonstrates moderate degree of hydronephrosis, multiple cysts present in the left kidney. Bladder demonstrates a large heterogeneous solid mass within the bladder lumen mass has increased significantly from study on 01/21/2017 02/23/17 13:[address] Vega He has discussed this with Dr Juan Day will do a cystoscopy tomorrow, possible stenting Dr Vega requests Hospitalist Admission 02/23/17 13:56 *DC/Admit/Observation/Transfer Diagnosis at time of Disposition: KIANNA (acute kidney injury), Hematuria - Discharge Dispostion Condition at time of disposition: Stable Admit: Yes
[2017-02-23] MEDS ORDERED: LIDOCAINE HCL 2% JELLY (5 ML/TUBE) ONE ×2 (09:11→12:55)
[2017-02-23 09:25] LABS: BASOPHIL 0.2 % (0-2.0); EOSINOPHIL 0.2 % (0-4.5); INR 1.02 (0.82-1.09); MCH 28.3 pg (25.7-33.7); MCHC 34.5 g/dl (32.0-35.9); MEAN PLT VOLUME 7.9 fl (7.5-11.1); NEUTROPHILS 89.9 % (42.8-82.8); PLATELET COUNT 232 K/MM3 (134-434); PROTHROMBIN TIME (PATIENT) 11.4 SEC (10.2-13.0); RDW 14.2 % (11.9-15.9); WHITE BLOOD COUNT 13.8 K/mm3 (4.0-10.8)
[2017-02-23 09:30] LABS: ALK PHOS 118 U/L (32-92); ANION GAP 13 (8-16); BILIRUBIN,TOTAL 0.7 mg/dl (0.2-1.0); CALCIUM 9.1 mg/dl (8.4-10.2); CO2 23 mmol/L (22-28); CREATININE 3.3 mg/dl (0.6-1.3); GLUCOSE,RANDOM 118 mg/dl (74-106); SGOT/AST 22 U/L (10-42); SGPT/ALT 16 U/L (10-40)
[2017-02-23 10:07] LABS: PH,URINE 7.5 (4.5-8); URINE APPEARANCE Cloudy; URINE BILIRUBIN Negative (NEGATIVE); URINE GLUCOSE (UA) Negative (NEGATIVE); URINE KETONE Negative (NEGATIVE); URINE NITRITE Negative (NEGATIVE); URINE UROBILINOGEN 0.2 E.U/dl (0.2-1.0)
[2017-02-23 10:09] LABS: URINE BLOOD 3+ (NEGATIVE); URINE COLOR YELLOW; URINE LEUK ESTERASE 1+ (NEGATIVE); URINE PROTEIN 3+ (NEGATIVE)
[2017-02-23] MEDS ORDERED: SODIUM CHLORIDE 1,000 ML IV STA (10:11)
[2017-02-23 10:31] LABS: URINE BACTERIA MANY /hpf (NEGATIVE); URINE MUCUS FEW
--- NOTE | 2017-02-23 12:29 | EKG ---
Test Reason : Blood Pressure : / mmHG Vent. Rate : 095 BPM Atrial Rate : 095 BPM P-R Int : 190 ms QRS Dur : 072 ms QT Int : 344 ms P-R-T Axes : 082 -71 054 degrees QTc Int : 432 ms NORMAL SINUS RHYTHM WITH SINUS ARRHYTHMIA LEFT AXIS DEVIATION ABNORMAL ECG WHEN COMPARED WITH ECG OF 20-JAN-2017 01:41, PREMATURE ATRIAL COMPLEXES ARE NO LONGER PRESENT Confirmed by IRINEO FLORES MD ([id number]) on 02/23/2017 12:28:55 PM Referred By: GERONIMO FOWLER Confirmed By:IRINEO FLORES MD
[2017-02-23 16:01] VITALS: BMI 19.9
--- NOTE | 2017-02-23 17:19 | HP ---
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 Pt presents to the ER with neighbor stating that he has noted hematuria since last night He has noted approximately 5 episodes where he found blood filling his diaper No abdominal or suprapubic pain, he does have a "Sensation" when he is passing blood He has noted that he is also passing "Debris" similar to what he passed after his bladder scraping Patient denies fever, chills, cough, SOB, CP, AP, N/V/D He is s/p recent admission to [facility], s/p 2 week admission to rehab He has had decreased po intake, related he thinks to not eating well since his 3 years ago PCP: Dr. Vega Urologist: Dr. Martinez PAST MEDICAL HISTORY: See HPI PAST SURGICAL HISTORY: Hernia Repair, bladder scraping Social History: Smoking: Former- Cigar Alcohol: None Drugs: None ER course was notable for: (1) hematuria with recent right nephrostomy and elevated bun/cr (2) evaluated by for cyscopy tomorrow (3) Family History: Allergies No Known Drug Allergies Allergy (Verified 02/23/17 08:07) HOME MEDICATIONS: Home Medications Medication Instructions Recorded Atorvastatin Ca [Lipitor] 10 mg PO HS #0 tablet 02/09/14 Hydrochlorothiazide [Hctz -] 25 mg PO DAILY #0 tablet 02/09/14 Metoprolol Tartrate [Lopressor -] 50 mg PO DAILY #0 tablet 02/09/14 Amlodipine Besylate [Norvasc -] 10 mg PO DAILY tablet 01/31/17 Gabapentin [Neurontin -] 100 mg PO TID #90 mg 01/31/17 Sodium Chloride Tablet - 1 gm PO BID tablet 01/31/17 REVIEW OF SYSTEMS CONSTITUTIONAL: Absent: fever, chills, diaphoresis, generalized weakness, malaise, loss of appetite, weight change HEENT: Absent: rhinorrhea, nasal congestion, throat pain, throat swelling, difficulty swallowing, mouth swelling, ear pain, eye pain, visual changes CARDIOVASCULAR: Absent: chest pain, syncope, palpitations, irregular heart rate, lightheadedness , peripheral edema RESPIRATORY: Absent: cough, shortness of breath, dyspnea with exertion, orthopnea, wheezing, stridor, hemoptysis GASTROINTESTINAL: Absent: abdominal pain, abdominal distension, nausea, vomiting, diarrhea, constipation, melena, hematochezia GENITOURINARY: Absent: (+) dysuria, frequency, urgency, hesitancy, (+)hematuria, flank pain, genital pain MUSCULOSKELETAL: Absent: myalgia, arthralgia, joint swelling, back pain, neck pain SKIN: Absent: rash, itching, pallor HEMATOLOGIC/IMMUNOLOGIC: Absent: easy bleeding, easy bruising, lymphadenopathy, frequent infections ENDOCRINE: Absent: unexplained weight gain, unexplained weight loss, heat intolerance, cold intolerance NEUROLOGIC: Absent: headache, focal weakness or paresthesias, dizziness, unsteady gait, seizure, mental status changes, bladder or bowel incontinence PSYCHIATRIC: Absent: anxiety, depression, suicidal or homicidal ideation, hallucinations. PHYSICAL EXAMINATION Vital Signs - 24 hr 02/23/17 15:48 Temperature 98.3 F Pulse Rate 104 H Respiratory 17 Rate Blood Pressure 122/66 GENERAL: Awake, alert, and fully oriented, in no acute distress. HEAD: Normal with no signs of trauma. NECK: Normal range of motion, supple without lymphadenopathy, JVD, or masses. LUNGS: Breath sounds equal, clear to auscultation bilaterally. No wheezes, and no crackles. No accessory muscle use. HEART: Regular rate and rhythm, normal S1 and S2 without murmur, rub or gallop. ABDOMEN: Soft, nontender, not distended, normoactive bowel sounds, no guarding, no rebound, no masses. No hepatomegaly or splenomegaly. : (+) with dsyuria and hematuria MUSCULOSKELETAL: Normal range of motion at all joints. No bony deformities or tenderness. No CVA tenderness. UPPER EXTREMITIES: 2+ pulses, warm, well-perfused. No cyanosis. No clubbing. No peripheral edema. LOWER EXTREMITIES: 2+ pulses, warm, well-perfused. No calf tenderness. No peripheral edema. NEUROLOGICAL: Cranial nerves II-XII intact. Normal speech. Normal gait. PSYCHIATRIC: Cooperative. Good eye contact. Appropriate mood and affect. SKIN: Warm, dry, normal turgor, no rashes or lesions noted, normal capillary refill. ASSESSMENT/PLAN: 86 yr old male with c/o dysuria and hematuria with recent right nephrostomy and CA 1. dysuria and hematuria -lidocaine jel PRN as needed for pain -tylenol prn -if retention, will need bladder scan and possible sullivan for retention -please call Dr. Nelson if needed. -continue hydration -monitor cbc, plt 2. DVT/GI ppx 3. Hypertension -continue medications -monitor v/s 4. CA Bladder -discuss with Dr. Andujar any change in futher pallative care plans post discharge Problem List - Problem (1) Bladder cancer Code(s): C67.9 - MALIGNANT NEOPLASM OF BLADDER, UNSPECIFIED Qualifiers: Bladder location: unspecified site Qualified Code(s): C67.9 - Malignant neoplasm of bladder, unspecified (2) HLD (hyperlipidemia) Code(s): E78.5 - HYPERLIPIDEMIA, UNSPECIFIED Qualifiers: Hyperlipidemia type: unspecified Qualified Code(s): E78.5 - Hyperlipidemia, unspecified (3) HTN (hypertension) Code(s): I10 - ESSENTIAL (PRIMARY) HYPERTENSION Qualifiers: Hypertension type: essential hypertension Qualified Code(s): I10 - Essential (primary) hypertension (4) Hyponatremia Code(s): E87.1 - HYPO-OSMOLALITY AND HYPONATREMIA Visit type - Emergency Visit Emergency Visit: Yes ED Registration Date: 02/23/17 Care time: The patient presented to the Emergency Department on the above date and was hospitalized for further evaluation of their emergent condition. - New Patient This patient is new to me today: Yes Date on this admission: 02/23/17 - Critical Care Critical Care patient: No
[2017-02-23] MEDS ORDERED: LIDOCAINE HCL 2% JELLY (5 ML/TUBE) TP ONE (17:36)
[2017-02-23] MEDS ORDERED: LIDOCAINE HCL 2% JELLY (5 ML/TUBE) TP PRN (17:45)
[2017-02-23] MEDS ORDERED: HEPARIN NA (PORCINE) 5,000 UNITS/ML 1ML VIAL SQ SCH (22:00)
[2017-02-23] MEDS: GABAPENTIN 100 MG CAPSULE (FP) PO SCH (22:04)
[2017-02-23] MEDS: ATORVASTATIN CA 10 MG TABLET (FP) PO SCH (22:04)
[2017-02-24] MEDS: GABAPENTIN 100 MG CAPSULE (FP) PO SCH ×4 (06:20→21:20)
[2017-02-24] MEDS: ACETAMINOPHEN 325 MG TABLET (FP) PO PRN (06:51)
[2017-02-24 08:11] LABS: MCH 27.3 pg (25.7-33.7); MCHC 33.5 g/dl (32.0-35.9); MEAN CELL VOLUME 81.5 fl (80-96); MEAN PLT VOLUME 7.8 fl (7.5-11.1); PLATELET COUNT 178 K/MM3 (134-434); RDW 14.6 % (11.9-15.9); WHITE BLOOD COUNT 9.3 K/mm3 (4.0-10.8)
[2017-02-24 08:12] LABS: INR 1.17 (0.82-1.09); PROTHROMBIN TIME (PATIENT) 13.1 SEC (10.2-13.0)
[2017-02-24 08:18] LABS: ALK PHOS 86 U/L (32-92); ANION GAP 14 (8-16); CALCIUM 8.3 mg/dl (8.4-10.2); CO2 18 mmol/L (22-28); CREATININE 5.7 mg/dl (0.6-1.3); GLUCOSE,RANDOM 179 mg/dl (74-106); MAGNESIUM 1.6 mg/dL (1.8-2.4); PHOSPHOROUS 4.3 mg/dl (2.5-4.6); SGOT/AST 18 U/L (10-42); SGPT/ALT 14 U/L (10-40); TOT PROT 5.4 g/dl (6.4-8.3)
[2017-02-24] MEDS ORDERED: MAGNESIUM SULFATE 2 GM in SODIUM CHLORIDE 100 ML IVPB ONE (09:19)
--- NOTE | 2017-02-24 09:31 | PN ---
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 admitted from the emergency department for hydronephrosis Vital Signs Period Temp Pulse Resp BP Sys/Askew Pulse Ox Last 24 Hr 98.3 F-100.0 F 102-107 17-19 122-144/58-66 97-98 GENERAL: The patient is awake, alert, and fully oriented, in no acute distress. HEAD: Normal with no signs of trauma. EYES: PERRL, extraocular movements intact, sclera anicteric, conjunctiva clear. No ptosis. ENT: Ears normal, nares patent, oropharynx clear without exudates, moist mucous membranes. NECK: Trachea midline, full range of motion, supple. LUNGS: Breath sounds equal, clear to auscultation bilaterally, no wheezes, no crackles, no accessory muscle use. HEART: Regular rate and rhythm, S1, S2 without murmur, rub or gallop. ABDOMEN: Soft, nontender, nondistended, normoactive bowel sounds, no guarding, no rebound, no hepatosplenomegaly, no masses. : right nephrectomy, clear yellow urine. EXTREMITIES: 2+ pulses, warm, well-perfused, no edema. NEUROLOGICAL: Cranial nerves II through XII grossly intact. Normal speech, gait not observed. PSYCH: Normal mood, normal affect. SKIN: Warm, dry, normal turgor, no rashes or lesions noted Laboratory Results - last 24 hr 02/24/17 02/24/17 02/24/17 07:30 07:30 07:30 WBC 9.3 D RBC 3.10 L Hgb 8.5 L D Hct 25.3 L D MCV 81.5 MCHC 33.5 RDW 14.6 Plt Count 178 D MPV 7.8 Neutrophils % Y Lymphocytes % Y INR 1.17 Sodium 133 L Potassium 4.6 Chloride 101 Carbon Dioxide 18 L D Anion Gap 14 BUN 72 H D Creatinine 5.7 H D Creat Clearance w eGFR 9.46 Random Glucose 179 H D Calcium 8.3 L Phosphorus 4.3 Magnesium 1.6 L D AST 18 ALT 14 Alkaline Phosphatase 86 D Total Protein 5.4 L D Albumin 3.0 L D Active Medications Generic Name Dose Route Start Last Admin Trade Name Freq PRN Reason Stop Dose Admin Acetaminophen 650 mg 02/23/17 17:46 02/24/17 06:51 Tylenol - PO 650 mg Q4H PRN Administration MODERATE PAIN Amlodipine Besylate 10 mg 02/24/17 10:00 Norvasc - PO DAILY [facility] Atorvastatin Calcium 10 mg 02/23/17 22:00 02/23/17 22:04 Lipitor - PO 10 mg HS LUCÍA Administration Gabapentin 100 mg 02/23/17 22:00 02/24/17 07:06 Neurontin - PO 100 mg TID LUCÍA Administration Hydrochlorothiazide 25 mg 02/24/17 10:00 Hctz - PO DAILY [facility] Magnesium Sulfate 2 gm/ Sodium 104 mls @ 100 mls/hr 02/24/17 09:19 Chloride IVPB 02/24/17 10:21 ONCE ONE Lidocaine HCl 1 applic 02/23/17 17:45 Xylocaine 2% Jelly TP PRN PRN PAIN Metoprolol Tartrate 50 mg 02/24/17 10:00 Lopressor - PO DAILY [facility] Microbiology 02/23/17 08:52 Urine - Urine Clean Catch Urine Culture - Final Contaminated: Please Repeat IMAGING ultrasound of kidney/bladder: atropic right kidney, moderate left-sided hydronephrosis, heterogeneous solid mass within the bladder lumen ASSESSMENT/PLAN: 1) neph acute on chronic kidney disease - creatinine 5.7 baseline 1.0, likely secondary to obstructive uropathy - Case discussed with urologist, Dr Barba, patient is pending or today for cystoscopy and stent placement - Nothing by mouth--> IVF - low temp noted no leukocytosis noted to start Rocephin 2 g IV urine culture noted to be contaminated, repeat urine culture sent 2) heme/onco metstatic transition cell carcinoma of the bladder - pt is requesting palliative care measures only, however, he is not prepared to consider his DNR/DNI 3) card hypertension - continue lopressor and norvasc, hold hctz due to aris hyperlipidemia - continue lipitor, lft's wnl f/e/n - npo gentle IVF - replete magnesium ppx hold ac due to or oob/scd dispo:requires inpatient care Visit type - Emergency Visit Emergency Visit: Yes ED Registration Date: 02/23/17 Care time: The patient presented to the Emergency Department on the above date and was hospitalized for further evaluation of their emergent condition. - New Patient This patient is new to me today: Yes Date on this admission: 02/24/17 - Critical Care Critical Care patient: No - Discharge Referral Referred to [facility] No
[2017-02-24] MEDS ORDERED: HYDROCHLOROTHIAZIDE 25 MG TABLET (FP) PO SCH (10:00)
[2017-02-24] MEDS: METOPROLOL TARTRATE 50 MG TABLET (FP) PO SCH (10:08)
[2017-02-24] MEDS: amLODIPine BESYLATE 10 MG TABLET (FP) PO SCH (10:08)
[2017-02-24] MEDS: CEFTRIAXONE 100 ML IVPB SCH (10:09)
[2017-02-24] MEDS: SODIUM CHLORIDE 1,000 ML IV SCH (10:24)
[2017-02-24] MEDS: LACTOBACILLUS ACIDOPHILUS 1 EACH TAB (FP) PO SCH (12:23)
[2017-02-24 14:26] LABS: BILIRUBIN,TOTAL 0.6 mg/dl (0.2-1.0)
[2017-02-24 14:29] LABS: PLATELET ESTIMATE ADEQUATE (NORMAL)
[2017-02-24] MEDS ORDERED: MIDAZOLAM HCL 2 MG/2 ML SINGLE DOSE VIAL ONE (16:01)
[2017-02-24] MEDS ORDERED: LIDOCAINE HCL 2% JELLY 10 ML CARTRIDGE TP ONE (16:35)
--- NOTE | 2017-02-24 17:03 | OP ---
Operative Note - Note: Operative Date: 02/24/17 Pre-Operative Diagnosis: bladder cancer, gross hematuria, obstructed left kidney Operation: cystoscopy, evacuation of clot Findings: bladder filled with tumor. clot irrigated out. Unable to visualize ureteral orifices Post-Operative Diagnosis: Same as Pre-op Surgeon: Jose Eduardo Lemus Anesthesia: Spinal
[2017-02-24] MEDS ORDERED: ONDANSETRON 4 MG/2 ML VIAL IVPUSH PRN (17:04)
[2017-02-24] MEDS: ATORVASTATIN CA 10 MG TABLET (FP) PO SCH (21:20)
[2017-02-25] MEDS: GABAPENTIN 100 MG CAPSULE (FP) PO SCH ×3 (06:15→21:11)
[2017-02-25] MEDS: ACETAMINOPHEN 325 MG TABLET (FP) PO PRN (06:15)
[2017-02-25 08:51] LABS: MCH 27.7 pg (25.7-33.7); MCHC 33.8 g/dl (32.0-35.9); MEAN CELL VOLUME 81.8 fl (80-96); MEAN PLT VOLUME 8.3 fl (7.5-11.1); NEUTROPHILS 90.3 % (42.8-82.8); PLATELET COUNT 157 K/MM3 (134-434); RDW 14.5 % (11.9-15.9); WHITE BLOOD COUNT 8.4 K/mm3 (4.0-10.8)
[2017-02-25 09:42] LABS: ALBUMIN 2.6 g/dl (3.5-5.0); ALK PHOS 70 U/L (32-92); ANION GAP 15 (8-16); BILIRUBIN,TOTAL 0.4 mg/dl (0.2-1.0); CALCIUM 7.8 mg/dl (8.4-10.2); CO2 18 mmol/L (22-28); GLUCOSE,RANDOM 165 mg/dl (74-106); MAGNESIUM 2.2 mg/dL (1.8-2.4); PHOSPHOROUS 4.9 mg/dl (2.5-4.6); SGOT/AST 25 U/L (10-42); SGPT/ALT 23 U/L (10-40); TOT PROT 4.8 g/dl (6.4-8.3)
[2017-02-25 09:43] LABS: CREATININE 8.3 mg/dl (0.6-1.3)
[2017-02-25] MEDS: CEFTRIAXONE 100 ML IVPB SCH (09:58)
[2017-02-25] MEDS: LACTOBACILLUS ACIDOPHILUS 1 EACH TAB (FP) PO SCH (10:00)
[2017-02-25] MEDS: METOPROLOL TARTRATE 50 MG TABLET (FP) PO SCH (10:00)
[2017-02-25] MEDS: SODIUM CHLORIDE 1,000 ML IV SCH (10:00)
[2017-02-25] MEDS: amLODIPine BESYLATE 10 MG TABLET (FP) PO SCH (10:00)
--- NOTE | 2017-02-25 10:10 | PN ---
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 admitted from the emergency department for hydronephrosis Vital Signs Period Temp Pulse Resp BP Sys/Askew Pulse Ox Last 24 Hr 97.4 F-100.6 F 94-104 16-20 94-138/49-83 97-100 GENERAL: The patient is awake, alert, and fully oriented, in no acute distress. HEAD: Normal with no signs of trauma. EYES: PERRL, extraocular movements intact, sclera anicteric, conjunctiva clear. No ptosis. ENT: Ears normal, nares patent, oropharynx clear without exudates, moist mucous membranes. NECK: Trachea midline, full range of motion, supple. LUNGS: Breath sounds equal, clear to auscultation bilaterally, no wheezes, no crackles, no accessory muscle use. HEART: Regular rate and rhythm, S1, S2 without murmur, rub or gallop. ABDOMEN: Soft, nontender, nondistended, normoactive bowel sounds, no guarding, no rebound, no hepatosplenomegaly, no masses. EXTREMITIES: 2+ pulses, warm, well-perfused, no edema. NEUROLOGICAL: Cranial nerves II through XII grossly intact. Normal speech, gait not observed. PSYCH: Normal mood, normal affect. SKIN: Warm, dry, normal turgor, no rashes or lesions noted Laboratory Results - last 24 hr 02/24/17 02/24/17 02/25/17 07:30 07:30 07:30 WBC 8.4 RBC 3.07 L Hgb 8.5 L Hct 25.1 L MCV 81.8 MCHC 33.8 RDW 14.5 Plt Count 157 MPV 8.3 Neutrophils % 95.0 H 90.3 H Lymphocytes % 2.0 L D 3.8 L D Monocytes % 3.0 L 5.9 D Eosinophils % 0.0 D Basophils % 0.0 Platelet Estimate Adequate Sodium Potassium Chloride Carbon Dioxide Anion Gap BUN Creatinine Creat Clearance w eGFR Random Glucose Calcium Phosphorus Magnesium Total Bilirubin 0.6 AST ALT Alkaline Phosphatase Total Protein Albumin 02/25/17 07:30 WBC RBC Hgb Hct MCV MCHC RDW Plt Count MPV Neutrophils % Lymphocytes % Monocytes % Eosinophils % Basophils % Platelet Estimate Sodium 136 Potassium 5.1 Chloride 103 Carbon Dioxide 18 L Anion Gap 15 BUN 109 H* D Creatinine 8.3 H* D Creat Clearance w eGFR 6.13 Random Glucose 165 H Calcium 7.8 L Phosphorus 4.9 H Magnesium 2.2 D Total Bilirubin 0.4 D AST 25 D ALT 23 D Alkaline Phosphatase 70 Total Protein 4.8 L Albumin 2.6 L Active Medications Generic Name Dose Route Start Last Admin Trade Name Freq PRN Reason Stop Dose Admin Acetaminophen 650 mg 02/23/17 17:46 02/25/17 06:15 Tylenol - PO 650 mg Q4H PRN Administration MODERATE PAIN Amlodipine Besylate 10 mg 02/24/17 10:00 02/25/17 10:00 Norvasc - PO Not Given DAILY LUCÍA Atorvastatin Calcium 10 mg 02/23/17 22:00 02/24/17 21:20 Lipitor - PO 10 mg HS LUCÍA Administration Gabapentin 100 mg 02/23/17 22:00 02/25/17 06:15 Neurontin - PO 100 mg TID LUCÍA Administration Hydrochlorothiazide 25 mg 02/24/17 10:00 02/25/17 10:00 Hctz - PO Not Given DAILY LUCÍA Ceftriaxone Sodium 100 mls @ 200 mls/hr 02/24/17 10:00 02/25/17 09:58 Rocephin 2gm Ivpb (Pre-Docked) IVPB 200 mls/hr DAILY LUCÍA Administration Sodium Chloride 1,000 mls @ 75 mls/hr 02/24/17 09:45 02/25/17 10:00 Normal Saline - IV 75 mls/hr ASDIR LUCÍA Administration Lactobacillus Acidophilus 1 tab 02/24/17 12:15 02/25/17 10:00 Bacid - PO Not Given DAILY LUCÍA Lidocaine HCl 1 applic 02/23/17 17:45 Xylocaine 2% Jelly TP PRN PRN PAIN Metoprolol Tartrate 50 mg 02/24/17 10:00 02/25/17 10:00 Lopressor - PO Not Given DAILY LUCÍA ASSESSMENT/PLAN:
--- NOTE | 2017-02-25 13:22 | PN ---
[id number] Period Temp Pulse Resp BP Sys/Askew Pulse Ox Last 24 Hr 97.4 F-100.6 F 93-104 16-20 94-138/49-83 97-100 GENERAL: The patient is awake, alert, and fully oriented, in no acute distress. HEAD: Normal with no signs of trauma. EYES: PERRL, extraocular movements intact, sclera anicteric, conjunctiva clear. No ptosis. ENT: Ears normal, nares patent, oropharynx clear without exudates, moist mucous membranes. NECK: Trachea midline, full range of motion, supple. LUNGS: Breath sounds equal, fine bi-basilar crackles to auscultation bilaterally , no wheezes, no accessory muscle use. HEART: Regular rate and rhythm, S1, S2 without murmur, rub or gallop. ABDOMEN: Soft, nontender, nondistended, normoactive bowel sounds, no guarding, no rebound, no hepatosplenomegaly, no masses. : Right nephrostomy tube with scant yellow output. CBI continues with pink drainage noted in collection bag. No CVA tenderness present. EXTREMITIES: 2+ pulses, warm, well-perfused, no edema. NEUROLOGICAL: Cranial nerves II through XII grossly intact. Normal speech, gait not observed. PSYCH: Normal mood, normal affect. SKIN: Warm, dry, normal turgor, no rashes or lesions noted Laboratory Results - last 24 hr 02/24/17 02/24/17 02/25/17 07:30 07:30 07:30 WBC 8.4 RBC 3.07 L Hgb 8.5 L Hct 25.1 L MCV 81.8 MCHC 33.8 RDW 14.5 Plt Count 157 MPV 8.3 Neutrophils % 95.0 H 90.3 H Lymphocytes % 2.0 L D 3.8 L D Monocytes % 3.0 L 5.9 D Eosinophils % 0.0 D Basophils % 0.0 Platelet Estimate Adequate Sodium Potassium Chloride Carbon Dioxide Anion Gap BUN Creatinine Creat Clearance w eGFR Random Glucose Calcium Phosphorus Magnesium Total Bilirubin 0.6 AST ALT Alkaline Phosphatase Total Protein Albumin 02/25/17 07:30 WBC RBC Hgb Hct MCV MCHC RDW Plt Count MPV Neutrophils % Lymphocytes % Monocytes % Eosinophils % Basophils % Platelet Estimate Sodium 136 Potassium 5.1 Chloride 103 Carbon Dioxide 18 L Anion Gap 15 BUN 109 H* D Creatinine 8.3 H* D Creat Clearance w eGFR 6.13 Random Glucose 165 H Calcium 7.8 L Phosphorus 4.9 H Magnesium 2.2 D Total Bilirubin 0.4 D AST 25 D ALT 23 D Alkaline Phosphatase 70 Total Protein 4.8 L Albumin 2.6 L Active Medications Generic Name Dose Route Start Last Admin Trade Name Freq PRN Reason Stop Dose Admin Acetaminophen 650 mg 02/23/17 17:46 02/25/17 06:15 Tylenol - PO 650 mg Q4H PRN Administration MODERATE PAIN Amlodipine Besylate 10 mg 02/24/17 10:00 02/25/17 10:00 Norvasc - PO Not Given DAILY LUCÍA Atorvastatin Calcium 10 mg 02/23/17 22:00 02/24/17 21:20 Lipitor - PO 10 mg HS LUCÍA Administration Gabapentin 100 mg 02/23/17 22:00 02/25/17 06:15 Neurontin - PO 100 mg TID LUCÍA Administration Hydrochlorothiazide 25 mg 02/24/17 10:00 02/25/17 10:00 Hctz - PO Not Given DAILY LUCÍA Ceftriaxone Sodium 100 mls @ 200 mls/hr 02/24/17 10:00 02/25/17 09:58 Rocephin 2gm Ivpb (Pre-Docked) IVPB 200 mls/hr DAILY LUCÍA Administration Sodium Chloride 1,000 mls @ 75 mls/hr 02/24/17 09:45 02/25/17 10:00 Normal Saline - IV 75 mls/hr ASDIR LUCÍA Administration Lactobacillus Acidophilus 1 tab 02/24/17 12:15 02/25/17 10:00 Bacid - PO Not Given DAILY LUCÍA Lidocaine HCl 1 applic 02/23/17 17:45 Xylocaine 2% Jelly TP PRN PRN PAIN Metoprolol Tartrate 50 mg 02/24/17 10:00 02/25/17 10:00 Lopressor - PO Not Given DAILY LUCÍA ASSESSMENT/PLAN: A: This is a 86yo man with history of HTN, sciatica, HLD and metastatic transition cell carcinoma of bladder (diagnosed 1 year ago chemo completed) s/p bladder scraping, s/p Right nephrostomy tube who presented with hematuria starting . Cr increased to 8.3 from 3.3 on admission. Fine crackles auscultated bi- basally. Renal U/S showed left hydronephrosis with b/l non-obstructing stones. 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 1) Hematuria -continue CBI -Rechtschaffen following -cystoscopy report- bladder filled with tumor. clot irrigated out. Unable to visualize ureteral orifices -continue ceftriaxone for positive nephrostomy culture showing Group D strep or enterococcus 2) hydronephrosis -Cr increase to 8.3 from 3.3 upon admission -plan for IR to place left nephrostomy -Rechtschaffen following 3)HTN -well controlled -continue metoprolol 4)HLD -continue atorvastatin 5)F/E/N -NS@75 -remain NPO for IR -advance diet after procedure Dispo: Patient continues to require inpatient services. Full Code. Comfort Care. Visit type - Emergency Visit Emergency Visit: Yes ED Registration Date: 02/23/17 Care time: The patient presented to the Emergency Department on the above date and was hospitalized for further evaluation of their emergent condition. - New Patient This patient is new to me today: Yes Date on this admission: 03/04/17 - Critical Care Critical Care patient: No - Discharge Referral Referred to [facility] No
[2017-02-25] MEDS ORDERED: MIDAZOLAM HCL 2 MG/2 ML SINGLE DOSE VIAL IVPUSH ONE (13:38)
[2017-02-25 18:35] LABS: ANION GAP 13 (8-16); CO2 20 mmol/L (22-28); CREATININE 7.1 mg/dl (0.6-1.3); GLUCOSE,RANDOM 291 mg/dl (74-106)
[2017-02-25] MEDS ORDERED: VANCOMYCIN 1 GRAM (PRE-DOCKED) 1,000 MG/250 ML BAG IVPB ONE (20:15)
--- NOTE | 2017-02-25 20:29 | CONSULT ---
Consult Consult Specialty:: Infectious Diseases Reason for Consultation:: Sepsis - History of Present Illness Chief Complaint: Fever History of Present Illness: Pt is 86 yr old man with known history of bladder cancer metastatic to the bone , was admitted for hematuria. He was noted to have KIANNA, Obstructive Uropathy from increased tumor burden. USG reviewed and results noted. He had cystoscopy yesterday and (L) PCN placed today. Now with rigors and SOB. - History Source History Provided By: Patient - Past Medical History Cardio/Vascular: Yes: HTN, Hyperlipdemia Renal/: Yes: Cancer, Hematuria Musculoskeletal: Yes: Other (sciatica) - Alcohol/Substance Use Hx Alcohol Use: No - Smoking History Smoking history: Never smoked Have you smoked in the past 12 months: No Aproximately how many cigarettes per day: 0 If you are a former smoker, when did you quit?: 12YRS AGO Home Medications - Allergies Allergies/Adverse Reactions: Allergies Allergy/AdvReac Type Severity Reaction Status Date / Time No Known Drug Allergies Allergy Verified 02/23/17 08:07 - Home Medications Home Medications: Ambulatory Orders Atorvastatin Ca [Lipitor] 10 mg PO HS #0 tablet 02/09/14 Hydrochlorothiazide [Hctz -] 25 mg PO DAILY #0 tablet 02/09/14 Metoprolol Tartrate [Lopressor -] 50 mg PO DAILY #0 tablet 02/09/14 Amlodipine Besylate [Norvasc -] 10 mg PO DAILY tablet 01/31/17 Gabapentin [Neurontin -] 100 mg PO TID #90 mg 01/31/17 Sodium Chloride Tablet - 1 gm PO BID tablet 01/31/17 Family Disease History - Family Disease History Family History: Unremarkable Review of Systems - Review of Systems Constitutional: reports: Chills, Fever Respiratory: reports: SOB Physical Exam Vital Signs: Vital Signs Temperature 98.2 F 02/25/17 16:16 Pulse Rate 95 H 02/25/17 16:16 Respiratory Rate 19 02/25/17 16:16 Blood Pressure 117/41 02/25/17 16:16 O2 Sat by Pulse Oximetry (%) 100 02/25/17 16:16 Constitutional: Yes: Thin Eyes: Yes: PERRL Neck: Yes: Supple Cardiovascular: Yes: Tachycardia Respiratory: Yes: Rhonchi Gastrointestinal: Yes: Soft. No: Tenderness Labs: CBC, BMP 02/25/17 07:30 02/25/17 18:05 Imaging - Results Chest X-ray: Pending Problem List - Problems (1) Fever Code(s): R50.9 - FEVER, UNSPECIFIED Qualifiers: Fever type: unspecified Qualified Code(s): R50.9 - Fever, unspecified (2) Sepsis Code(s): A41.9 - SEPSIS, UNSPECIFIED ORGANISM Qualifiers: Sepsis type: Streptococcus, unspecified Qualified Code(s): A40.9 - Streptococcal sepsis, unspecified; A40 - Streptococcal sepsis Assessment/Plan Fever, Chills/Rigors in pt with bladder Ca s/p cystoscopy, (L) PCN r/o sepsis CXR BC X 2 Change Abx to Zosyn 2.25 gr q 8 hrs Vanco 1 gr X 1 Will follow
[2017-02-25] MEDS: PIPERACILLIN/TAZOB 2.25 GM 50 ML IVPB SCH (21:11)
[2017-02-25] MEDS: ATORVASTATIN CA 10 MG TABLET (FP) PO SCH (21:11)
[2017-02-26] MEDS: ACETAMINOPHEN 325 MG TABLET (FP) PO PRN (00:24)
[2017-02-26] MEDS: PIPERACILLIN/TAZOB 2.25 GM 50 ML IVPB SCH ×3 (02:13→18:36)
[2017-02-26] MEDS: GABAPENTIN 100 MG CAPSULE (FP) PO SCH ×3 (05:31→21:20)
--- NOTE | 2017-02-26 08:15 | PN ---
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 He was noted to have KIANNA, Obstructive Uropathy from increased tumor burden. USG reviewed and results noted. He had cystoscopy yesterday and (L) PCN placed today. Had fever, rigors and SOB last night. This AM, feels a little better. - Current Medication List Current Medications: Active Medications Acetaminophen (Tylenol -) 650 mg PO Q4H PRN PRN Reason: MODERATE PAIN Last Admin: 02/26/17 00:24 Dose: 650 mg Amlodipine Besylate (Norvasc -) 10 mg PO DAILY [facility] Last Admin: 02/25/17 10:00 Dose: Not Given Atorvastatin Calcium (Lipitor -) 10 mg PO HS [facility] Last Admin: 02/25/17 21:11 Dose: 10 mg Gabapentin (Neurontin -) 100 mg PO TID [facility] Last Admin: 02/26/17 05:31 Dose: 100 mg Hydrochlorothiazide (Hctz -) 25 mg PO DAILY [facility] Last Admin: 02/25/17 10:00 Dose: Not Given Sodium Chloride (Normal Saline -) 1,000 mls @ 75 mls/hr IV ASDIR [facility] Last Admin: 02/25/17 10:00 Dose: 75 mls/hr Piperacillin Sod/Tazobactam Sod (Zosyn 2.25gm Ivpb (Pre-Docked)) 50 mls @ 100 mls/hr IVPB Q8H-IV LUCÍA PRN Reason: Protocol Stop: 03/03/17 23:59 Last Admin: 02/26/17 02:13 Dose: 100 mls/hr Lactobacillus Acidophilus (Bacid -) 1 tab PO DAILY [facility] Last Admin: 02/25/17 10:00 Dose: Not Given Lidocaine HCl (Xylocaine 2% Jelly) 1 applic TP PRN PRN PRN Reason: PAIN Metoprolol Tartrate (Lopressor -) 50 mg PO DAILY [facility] Last Admin: 02/25/17 10:00 Dose: Not Given - Objective Vital Signs: Vital Signs Temperature 100.3 F H 02/26/17 04:00 Pulse Rate 89 02/26/17 04:00 Respiratory Rate 18 02/26/17 04:00 Blood Pressure 108/44 02/26/17 04:00 O2 Sat by Pulse Oximetry (%) 100 02/25/17 22:00 Constitutional: Yes: No Distress Cardiovascular: Yes: Regular Rate and Rhythm Respiratory: Yes: CTA Bilaterally Gastrointestinal: Yes: Normal Bowel Sounds, Soft Genitourinary: Yes: Other ((+) PCN's (R) & (L) - clear to auscultation) Integumentary: No: Rash Neurological: Yes: Alert, Oriented Labs: CBC, BMP 02/25/17 07:30 02/25/17 18:05 INR, PTT INR 1.17 (0.82-1.09) 02/24/17 07:30 Problem List - Problems (1) Fever Assessment/Plan: Tm 100.3 C/s sent Continue current Abx Code(s): R50.9 - FEVER, UNSPECIFIED Qualifiers: Fever type: unspecified Qualified Code(s): R50.9 - Fever, unspecified (2) Sepsis Assessment/Plan: Continue current Abx Follow c/s Code(s): A41.9 - SEPSIS, UNSPECIFIED ORGANISM Qualifiers: Sepsis type: Streptococcus, unspecified Qualified Code(s): A40.9 - Streptococcal sepsis, unspecified; A40 - Streptococcal sepsis Assessment/Plan Fever, Chills/Rigors in pt with bladder Ca s/p cystoscopy, (L) PCN r/o sepsis CXR reviewed - No infiltrates Continue Zosyn 2.25 gr q 8 hrs Random Vanco level Follow up c/s results.
[2017-02-26 10:06] LABS: BASOPHIL 0.2 % (0-2.0); EOSINOPHIL 1.4 % (0-4.5); MCH 27.8 pg (25.7-33.7); MEAN CELL VOLUME 81.7 fl (80-96); MEAN PLT VOLUME 7.8 fl (7.5-11.1); NEUTROPHILS 87.9 % (42.8-82.8); PLATELET COUNT 134 K/MM3 (134-434); RDW 14.9 % (11.9-15.9); WHITE BLOOD COUNT 6.1 K/mm3 (4.0-10.8)
[2017-02-26] MEDS: amLODIPine BESYLATE 10 MG TABLET (FP) PO SCH (10:22)
[2017-02-26] MEDS: SODIUM CHLORIDE 1,000 ML IV SCH (10:22)
[2017-02-26] MEDS: METOPROLOL TARTRATE 50 MG TABLET (FP) PO SCH (10:22)
[2017-02-26] MEDS: LACTOBACILLUS ACIDOPHILUS 1 EACH TAB (FP) PO SCH (10:22)
[2017-02-26 10:36] LABS: ALBUMIN 2.4 g/dl (3.5-5.0); ALK PHOS 68 U/L (32-92); ANION GAP 8 (8-16); CALCIUM 7.8 mg/dl (8.4-10.2); CO2 21 mmol/L (22-28); CREATININE 4.5 mg/dl (0.6-1.3); GLUCOSE,RANDOM 202 mg/dl (74-106); MAGNESIUM 1.9 mg/dL (1.8-2.4); PHOSPHOROUS 3.3 mg/dl (2.5-4.6); SGOT/AST 44 U/L (10-42); SGPT/ALT 40 U/L (10-40); TOT PROT 4.8 g/dl (6.4-8.3)
[2017-02-26 11:00] LABS: BILIRUBIN,TOTAL < 0.3 mg/dl (0.2-1.0)
--- NOTE | 2017-02-26 11:35 | PN ---
Physical Exam: SUBJECTIVE: Patient seen and examined. Reports feeling a little better, but " not ready to get up and dance." Denies pain. OBJECTIVE: Vital Signs - 24 hr 3 02/25/17 02/25/17 02/25/17 02/25/17 02/25/17 02/25/17 11:39 13:10 13:15 13:45 13:51 14:15 Temperature 98.0 F Pulse Rate 93 H 97 H Pulse Rate [ 94 H 96 H 96 H 101 H Right Upper Arm ] Respiratory 16 14 14 20 Rate Respiratory 14 14 Rate [Right Upper Arm] Blood Pressure 128/63 156/62 126/63 107/56 Blood Pressure 132/79 131/63 [Right Upper Arm] O2 Sat by Pulse 100 100 99 Oximetry (%) O2 Sat by Pulse 100 100 Oximetry (%) [ Right Upper Arm ] 3 02/25/17 02/25/17 02/25/17 02/25/17 02/25/17 02/26/17 02/26/17 14:30 14:45 15:01 16:16 22:00 04:00 10:37 Temperature 97.4 F L 98.2 F 99.1 F 100.3 F H 97.5 F L Pulse Rate 84 90 87 95 H 120 H 89 101 H Pulse Rate [ Right Upper Arm ] Respiratory 18 16 20 19 20 18 18 Rate Respiratory Rate [Right Upper Arm] Blood Pressure 102/59 104/46 109/57 117/41 133/93 108/44 127/44 Blood Pressure [Right Upper Arm] O2 Sat by Pulse 96 97 96 100 100 Oximetry (%) O2 Sat by Pulse Oximetry (%) [ Right Upper Arm ] GENERAL: The patient is awake, alert, and fully oriented, in no acute distress. HEAD: Normal with no signs of trauma. EYES: PERRL, extraocular movements intact, sclera anicteric, conjunctiva clear. No ptosis. ENT: Ears normal, nares patent, oropharynx clear without exudates, moist mucous membranes. NECK: Trachea midline, full range of motion, supple. LUNGS: Breath sounds equal, clear to auscultation bilaterally, no wheezes, no crackles, no accessory muscle use. diminished bilat bases HEART: Regular rate and rhythm, S1, S2 without murmur, rub or gallop. ABDOMEN: Soft, nontender, nondistended, normoactive bowel sounds, no guarding, no rebound, no hepatosplenomegaly, no masses. B/L NEPHROSTOMY TUBES PRESENT. No surrounding erythema, dressings clean, dry and intact. EXTREMITIES: 2+ pulses, warm, well-perfused, no edema. NEUROLOGICAL: Cranial nerves II through XII grossly intact. Normal speech, gait not observed. PSYCH: Normal mood, normal affect. SKIN: Warm, dry, normal turgor, no rashes or lesions noted Laboratory Results - last 24 hr 3 02/25/17 02/26/17 02/26/17 18:05 09:50 09:50 WBC 6.1 RBC 3.05 L Hgb 8.5 L Hct 24.9 L MCV 81.7 MCHC 34.0 RDW 14.9 Plt Count 134 MPV 7.8 Neutrophils % 87.9 H Lymphocytes % 4.7 L D Monocytes % 5.8 Eosinophils % 1.4 D Basophils % 0.2 D Sodium 134 L 131 L Potassium 4.8 4.3 Chloride 101 102 Carbon Dioxide 20 L 21 L Anion Gap 13 8 BUN 95 H 76 H Creatinine 7.1 H 4.5 H D Creat Clearance w eGFR 12.43 Random Glucose 291 H D 202 H D Calcium 8.0 L 7.8 L Phosphorus 3.3 D Magnesium 1.9 Total Bilirubin < 0.3 D AST 44 H D ALT 40 D Alkaline Phosphatase 68 Total Protein 4.8 L Albumin 2.4 L Active Medications 3 Generic Name Dose Route Start Last Admin Trade Name Freq PRN Reason Stop Dose Admin Acetaminophen 650 mg 02/23/17 17:46 02/26/17 00:24 Tylenol - PO 650 mg Q4H PRN Administration MODERATE PAIN Amlodipine Besylate 10 mg 02/24/17 10:00 02/26/17 10:22 Norvasc - PO 10 mg DAILY [facility] Administration Atorvastatin Calcium 10 mg 02/23/17 22:00 02/25/17 21:11 Lipitor - PO 10 mg HS LUC[facility]A Administration Gabapentin 100 mg 02/23/17 22:00 02/26/17 05:31 Neurontin - PO 100 mg TID LUC[facility]A Administration Sodium Chloride 1,000 mls @ 75 mls/hr 02/24/17 09:45 02/26/17 10:22 Normal Saline - IV 75 mls/hr ASDIR [facility]A Administration Piperacillin Sod/Tazobactam Sod 50 mls @ 100 mls/hr 02/25/17 20:30 02/26/17 10: 23 Zosyn 2.25gm Ivpb (Pre-Docked) IVPB 03/03/17 23:59 100 mls/hr Q8H-IV [facility]UC[facility]A Administration Protocol Lactobacillus Acidophilus 1 tab 02/24/17 12:15 02/26/17 10:22 Bacid - PO 1 tab DAILY [facility] Administration Lidocaine HCl 1 applic 02/23/17 17:45 Xylocaine 2% Jelly TP PRN PRN PAIN Metoprolol Tartrate 50 mg 02/24/17 10:00 02/26/17 10:22 Lopressor - PO 50 mg DAILY [facility] Administration Renal / Bladder sono: Real time examination of the kidneys and urinary bladder demonstrates the following: The study is limited. The right kidney is small in size measuring 8.1 x 4.7 x 3.5 cm. There is no evidence of hydronephrosis or contour deforming renal masses. There is a small calcification noted centrally within the kidney consistent with a nonspecific and calculus. There is also a renal cyst which measures 3.1 x 2.8 x 3.9 cm. The left kidney normal in size measuring 10.9 x 5.2 x 6.4 cm. There is a moderate degree of left- sided hydronephrosis present. Multiple cysts are also noted with the largest cyst measuring 4.1 x 2.7 x 3.6 cm. A 7 mm calcification is also seen centrally. Evaluation of the urinary bladder demonstrates a large, heterogeneous solid mass within the bladder lumen. Since prior study of 01/21/2017, the size of this mass has increased significantly. This is consistent with the patient's history of a bladder malignancy. A post voiding images could not be obtained. The ureteral jets were not visualized. IMPRESSION: 1. Mildly atrophic right kidney. 2. Moderate left-sided hydronephrosis with bilateral nephrolithiasis and renal cysts. Limited study as described above. 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 He was admitted for further workup. Hematuria secondary to bladder CA - s/p cystoscopy with irrigation of clot - cont CBI as per Dr. Lemus Hydronephrosis secondary to bladder CA with KIANNA - s/p Left nephrostomy tube 02/25/17 - creatinine trending down s/p nephrostomy tube, cont to trend - cont zosyn / vanc as per ID for fever, recent nephrostomy tube placement hyponatremia - s/p recent nephrostomy tube placement - renal consult - urine for sodium and osmolality ordered - serum osmolality added on HTN - BP stable, cont lopressor and metoprolol HLD - cont atorvastatin DVT PPX - heparin deferred due to hematuria FEN - cont NS @ 75cc/hr for now - Repeat labs in am - cont regular diet Dispo: pt currently requires inpatient management of his emergent condition. Visit type - Emergency Visit Emergency Visit: Yes ED Registration Date: 02/23/17 Care time: The patient presented to the Emergency Department on the above date and was hospitalized for further evaluation of their emergent condition. - New Patient This patient is new to me today: Yes Date on this admission: 02/26/17 - Critical Care Critical Care patient: No - Discharge Referral Referred to [facility] Med P.C.: No
[2017-02-26] MEDS ORDERED: FLUCONAZOLE 100 MG/D5W 50 ML IVPB ONE (18:05)
--- NOTE | 2017-02-26 19:52 | CONSULT ---
Consult Consult Specialty:: Nephrology Reason for Consultation:: KIANNA - History of Present Illness Chief Complaint: hematuria History of Present Illness: Pt is an 86 year old male with pmhx of HTN, Chol, sciatica, transitional cell carcinoma of the bladder and history of nephrostomy. He presented with hematuria. He was found to be in acute renal failure. Pt was found to be obstructed. He has CBI and his creatinine is improving. Pt says he does feel better. He has improved appetite. He denies fevers or chills. She denies abdominal pain. - History Source History Provided By: Patient - Past Medical History Cardio/Vascular: Yes: HTN, Hyperlipdemia Renal/: Yes: Renal Inusuff, Cancer, Hematuria Musculoskeletal: Yes: Other (sciatica) - Alcohol/Substance Use Hx Alcohol Use: No - Smoking History Smoking history: Never smoked Have you smoked in the past 12 months: No Aproximately how many cigarettes per day: 0 If you are a former smoker, when did you quit?: 12YRS AGO Home Medications - Allergies Allergies/Adverse Reactions: Allergies Allergy/AdvReac Type Severity Reaction Status Date / Time No Known Drug Allergies Allergy Verified 02/23/17 08:07 - Home Medications Home Medications: Ambulatory Orders Atorvastatin Ca [Lipitor] 10 mg PO HS #0 tablet 02/09/14 Hydrochlorothiazide [Hctz -] 25 mg PO DAILY #0 tablet 02/09/14 Metoprolol Tartrate [Lopressor -] 50 mg PO DAILY #0 tablet 02/09/14 Amlodipine Besylate [Norvasc -] 10 mg PO DAILY tablet 01/31/17 Gabapentin [Neurontin -] 100 mg PO TID #90 mg 01/31/17 Sodium Chloride Tablet - 1 gm PO BID tablet 01/31/17 Family Disease History - Family Disease History Family History: Denies Review of Systems - Review of Systems Constitutional: reports: No Symptoms Eyes: reports: No Symptoms HENT: reports: No Symptoms Neck: reports: No Symptoms Cardiovascular: reports: No Symptoms Respiratory: reports: No Symptoms Gastrointestinal: reports: No Symptoms Genitourinary: reports: Other (pt has cbi) Musculoskeletal: reports: No Symptoms Integumentary: reports: No Symptoms Neurological: reports: No Symptoms Endocrine: reports: No Symptoms Hematology/Lymphatic: reports: No Symptoms Psychiatric: reports: No Symptoms Physical Exam Vital Signs: Vital Signs Temperature 98.1 F 02/26/17 15:06 Pulse Rate 95 H 02/26/17 15:06 Respiratory Rate 19 02/26/17 15:06 Blood Pressure 107/45 02/26/17 15:06 O2 Sat by Pulse Oximetry (%) 95 02/26/17 15:06 Constitutional: Yes: Calm Eyes: Yes: Conjunctiva Clear HENT: Yes: Atraumatic Cardiovascular: Yes: S1, S2 Respiratory: Yes: CTA Bilaterally Gastrointestinal: Yes: Soft Renal/: Yes: Other (cbi, bilateral nephrostomy) Edema: No Neurological: Yes: Oriented Psychiatric: Yes: Oriented Labs: CBC, BMP 02/26/17 09:50 02/26/17 09:50 Laboratory Tests 02/25/17 02/25/17 02/26/17 07:30 18:05 09:50 Sodium 134 L 131 L BUN 109 H* D 95 H 76 H Creatinine 8.3 H* D 7.1 H 4.5 H D Imaging - Results Chest X-ray: Report Reviewed Problem List - Problems (1) KIANNA (acute kidney injury) Code(s): N17.9 - ACUTE KIDNEY FAILURE, UNSPECIFIED (2) Bladder cancer Code(s): C67.9 - MALIGNANT NEOPLASM OF BLADDER, UNSPECIFIED Qualifiers: Bladder location: unspecified site Qualified Code(s): C67.9 - Malignant neoplasm of bladder, unspecified (3) Hematuria Code(s): R31.9 - HEMATURIA, UNSPECIFIED Assessment/Plan Current Medications Generic Name Dose Route Start Last Admin Trade Name Freq PRN Reason Stop Dose Admin Acetaminophen 650 mg 02/23/17 17:46 02/26/17 00:24 Tylenol - PO 650 mg Q4H PRN Administration MODERATE PAIN Amlodipine Besylate 10 mg 02/24/17 10:00 02/26/17 10:22 Norvasc - PO 10 mg DAILY [facility] Administration Atorvastatin Calcium 10 mg 02/23/17 22:00 02/25/17 21:11 Lipitor - PO 10 mg HS LUCÍA Administration Gabapentin 100 mg 02/23/17 22:00 02/26/17 13:56 Neurontin - PO 100 mg TID LUC[facility]A Administration Sodium Chloride 1,000 mls @ 75 mls/hr 02/24/17 09:45 02/26/17 10:22 Normal Saline - IV 75 mls/hr ASDIR [facility]A Administration Piperacillin Sod/Tazobactam Sod 50 mls @ 100 mls/hr 02/25/17 20:30 02/26/17 18: 36 Zosyn 2.25gm Ivpb (Pre-Docked) IVPB 03/03/17 23:59 100 mls/hr Q8H-IV [facility]A Administration Protocol Lactobacillus Acidophilus 1 tab 02/24/17 12:15 02/26/17 10:22 Bacid - PO 1 tab DAILY [facility] Administration Lidocaine HCl 1 applic 02/23/17 17:45 Xylocaine 2% Jelly TP PRN PRN PAIN Metoprolol Tartrate 50 mg 02/24/17 10:00 02/26/17 10:22 Lopressor - PO 50 mg DAILY [facility] Administration Impression 1. KIANNA 2. UTI 3. bladder cancer 4. HTN 5. hyponatremia 6. hyperlipidemia 7. gross hematuria Plan - cont with fluids - repeat labs in am - restart sodium tabs as well - urology input appreciated - monitor ouput from nephrostomy tubes - pt still has hematuria Dr Hussein
[2017-02-26] MEDS: SODIUM CHLORIDE 1 GM TABLET PO SCH ×2 (21:19→21:24)
[2017-02-26] MEDS: ATORVASTATIN CA 10 MG TABLET (FP) PO SCH (21:19)
[2017-02-27] MEDS: PIPERACILLIN/TAZOB 2.25 GM 50 ML IVPB SCH ×3 (01:57→18:43)
[2017-02-27] MEDS: GABAPENTIN 100 MG CAPSULE (FP) PO SCH ×3 (06:16→21:03)
[2017-02-27] MEDS: ACETAMINOPHEN 325 MG TABLET (FP) PO PRN ×2 (06:17→21:57)
[2017-02-27 08:39] LABS: BASOPHIL 0.3 % (0-2.0); EOSINOPHIL 3.4 % (0-4.5); MCH 27.4 pg (25.7-33.7); MCHC 33.8 g/dl (32.0-35.9); MEAN PLT VOLUME 8.6 fl (7.5-11.1); NEUTROPHILS 77.2 % (42.8-82.8); PLATELET COUNT 118 K/MM3 (134-434); RDW 14.4 % (11.9-15.9); WHITE BLOOD COUNT 5.6 K/mm3 (4.0-10.8)
[2017-02-27 09:06] LABS: ANION GAP 11 (8-16); CALCIUM 7.7 mg/dl (8.4-10.2); CO2 23 mmol/L (22-28); GLUCOSE,RANDOM 159 mg/dl (74-106); MAGNESIUM 1.6 mg/dL (1.8-2.4)
[2017-02-27 09:14] LABS: COCKROFT - GAULT NT
[2017-02-27] MEDS: SODIUM CHLORIDE 1 GM TABLET PO SCH (09:40)
[2017-02-27] MEDS: amLODIPine BESYLATE 10 MG TABLET (FP) PO SCH (09:40)
[2017-02-27] MEDS: METOPROLOL TARTRATE 50 MG TABLET (FP) PO SCH (09:40)
[2017-02-27] MEDS: SODIUM CHLORIDE 1,000 ML IV SCH ×2 (09:41→12:25)
[2017-02-27] MEDS: LACTOBACILLUS ACIDOPHILUS 1 EACH TAB (FP) PO SCH (09:41)
--- NOTE | 2017-02-27 11:10 | PN ---
Progress Note, Physician History of Present Illness: Pt seen and examined at bedside. He is awake and alert. He denies shortness of breath. - Current Medication List Current Medications: Active Medications Acetaminophen (Tylenol -) 650 mg PO Q4H PRN PRN Reason: MODERATE PAIN Last Admin: 02/27/17 06:17 Dose: 650 mg Amlodipine Besylate (Norvasc -) 10 mg PO DAILY [facility] Last Admin: 02/27/17 09:40 Dose: 10 mg Atorvastatin Calcium (Lipitor -) 10 mg PO HS [facility] Last Admin: 02/26/17 21:19 Dose: 10 mg Gabapentin (Neurontin -) 100 mg PO TID [facility] Last Admin: 02/27/17 06:16 Dose: 100 mg Sodium Chloride (Normal Saline -) 1,000 mls @ 75 mls/hr IV ASDIR [facility] Last Admin: 02/27/17 09:41 Dose: 75 mls/hr Piperacillin Sod/Tazobactam Sod (Zosyn 2.25gm Ivpb (Pre-Docked)) 50 mls @ 100 mls/hr IVPB Q8H-IV LUCÍA PRN Reason: Protocol Stop: 03/03/17 23:59 Last Admin: 02/27/17 09:42 Dose: 100 mls/hr Lactobacillus Acidophilus (Bacid -) 1 tab PO DAILY [facility] Last Admin: 02/27/17 09:41 Dose: 1 tab Lidocaine HCl (Xylocaine 2% Jelly) 1 applic TP PRN PRN PRN Reason: PAIN Metoprolol Tartrate (Lopressor -) 50 mg PO DAILY [facility] Last Admin: 02/27/17 09:40 Dose: 50 mg Sodium Chloride (Sodium Chloride Tablet -) 1 gm PO BID [facility] Last Admin: 02/27/17 09:40 Dose: 1 gm - Objective Vital Signs: Vital Signs Temperature 101.0 F H 02/27/17 06:00 Pulse Rate 95 H 02/27/17 06:00 Respiratory Rate 19 02/27/17 06:00 Blood Pressure 113/56 02/27/17 06:00 O2 Sat by Pulse Oximetry (%) 95 02/27/17 06:00 Constitutional: Yes: Calm Eyes: Yes: Conjunctiva Clear HENT: Yes: Atraumatic Neck: Yes: Supple Cardiovascular: Yes: S1, S2 Respiratory: Yes: CTA Bilaterally Gastrointestinal: Yes: Soft Genitourinary: Yes: Other (pt on CBI, bilateral nephrostomy tubes) Musculoskeletal: Yes: WNL Edema: No Neurological: Yes: Oriented Psychiatric: Yes: Oriented Labs: CBC, BMP 02/27/17 06:00 02/27/17 06:00 INR, PTT INR 1.17 (0.82-1.09) 02/24/17 07:30 Problem List - Problems (1) KIANNA (acute kidney injury) Code(s): N17.9 - ACUTE KIDNEY FAILURE, UNSPECIFIED (2) Bladder cancer Code(s): C67.9 - MALIGNANT NEOPLASM OF BLADDER, UNSPECIFIED Qualifiers: Bladder location: unspecified site Qualified Code(s): C67.9 - Malignant neoplasm of bladder, unspecified (3) Hematuria Code(s): R31.9 - HEMATURIA, UNSPECIFIED Assessment/Plan Current Medications Generic Name Dose Route Start Last Admin Trade Name Freq PRN Reason Stop Dose Admin Acetaminophen 650 mg 02/23/17 17:46 02/27/17 06:17 Tylenol - PO 650 mg Q4H PRN Administration MODERATE PAIN Amlodipine Besylate 10 mg 02/24/17 10:00 02/27/17 09:40 Norvasc - PO 10 mg DAILY [facility] Administration Atorvastatin Calcium 10 mg 02/23/17 22:00 02/26/17 21:19 Lipitor - PO 10 mg HS L[facility]A Administration Gabapentin 100 mg 02/23/17 22:00 02/27/17 06:16 Neurontin - PO 100 mg TID [facility]A Administration Sodium Chloride 1,000 mls @ 75 mls/hr 02/24/17 09:45 02/27/17 09:41 Normal Saline - IV 75 mls/hr ASDIR L[facility]A Administration Piperacillin Sod/Tazobactam Sod 50 mls @ 100 mls/hr 02/25/17 20:30 02/27/17 09: 42 Zosyn 2.25gm Ivpb (Pre-Docked) IVPB 03/03/17 23:59 100 mls/hr Q8H-IV LUCÍA Administration Protocol Lactobacillus Acidophilus 1 tab 02/24/17 12:15 02/27/17 09:41 Bacid - PO 1 tab DAILY [facility] Administration Lidocaine HCl 1 applic 02/23/17 17:45 Xylocaine 2% Jelly TP PRN PRN PAIN Metoprolol Tartrate 50 mg 02/24/17 10:00 02/27/17 09:40 Lopressor - PO 50 mg DAILY [facility] Administration Sodium Chloride 1 gm 02/26/17 22:00 02/27/17 09:40 Sodium Chloride Tablet - PO 1 gm BID LUC[facility]A Administration Impression 1. KIANNA 2. UTI 3. bladder cancer 4. HTN 5. hyponatremia 6. hyperlipidemia 7. gross hematuria Plan - renal function is improving - can decrease fluids further - urine is clearing up - will stop salt tabs as pt does not want to take them - repeat labs in am - urology follow up - monitor ouput from nephrostomy tubes Dr Hussein
[2017-02-27] MEDS ORDERED: ALBUTEROL SO4 0.083% IH SOL 2.5 MG/3 ML VIAL.NEB. NEB PRN (18:16)
--- NOTE | 2017-02-27 18:24 | PN ---
Physical Exam: SUBJECTIVE: Patient seen and examined. He has no acute complaints. He is joking , family at bedside. Denies fever, chills. 24hr: - Febrile this AM - OOB to chair yesterday OBJECTIVE: Vital Signs Period Temp Pulse Resp BP Sys/Askew Pulse Ox Last 24 Hr 98.3 F-101.0 F 81-98 17-19 113-120/48-56 95-98 PE Neuro: alert, awake, cn 2-12intact Pulm: diminished bases, basilar crackles, expiratory wheezing CV: s1 s2 rrr Abd: s nt nd + bs : b/l nephrostomy tube L draining >R, clear yellow, sullivan catheter draining red tinged Laboratory Results - last 24 hr 02/27/17 02/27/17 06:00 06:00 WBC 5.6 RBC 2.91 L Hgb 8.0 L Hct 23.6 L MCV 81.0 MCHC 33.8 RDW 14.4 Plt Count 118 L MPV 8.6 D Neutrophils % 77.2 Lymphocytes % 8.8 D Monocytes % 10.3 H Eosinophils % 3.4 D Basophils % 0.3 Sodium 135 L Potassium 4.0 Chloride 101 Carbon Dioxide 23 Anion Gap 11 BUN 57 H D Creatinine 3.0 H D Random Glucose 159 H D Calcium 7.7 L Magnesium 1.6 L Laboratory Tests 02/26/17 02/26/17 13:00 13:00 Urine Osmolality 415 Ur Random Sodium 30 Microbiology 02/25/17 20:30 Blood - Peripheral Venous Blood Culture - Preliminary Pending Organism 02/25/17 20:45 Blood - Peripheral Venous Blood Culture - Preliminary Pending Organism 02/25/17 18:30 Urine - Urine Nephrostomy Tube Urine Culture - Final 02/24/17 Unknown Urine - Urine Nephrostomy Tube Urine Culture - Final Enterococcus Faecalis 02/25/17 13:45 Urine - Urine Nephrostomy Tube Urine Culture - Final Yeast Like Organism 02/23/17 08:52 Urine - Urine Clean Catch Urine Culture - Final Contaminated: Please Repeat Active Medications Generic Name Dose Route Start Last Admin Trade Name Freq PRN Reason Stop Dose Admin Acetaminophen 650 mg 02/23/17 17:46 02/27/17 06:17 Tylenol - PO 650 mg Q4H PRN Administration MODERATE PAIN Albuterol Sulfate 1 amp 02/27/17 18:16 Ventolin 0.083% Nebulizer Soln - NEB Q6H PRN SHORT OF BREATH/WHEEZING Amlodipine Besylate 10 mg 02/24/17 10:00 02/27/17 09:40 Norvasc - PO 10 mg DAILY LUC[facility]A Administration Atorvastatin Calcium 10 mg 02/23/17 22:00 02/26/17 21:19 Lipitor - PO 10 mg HS LUCÍA Administration Gabapentin 100 mg 02/23/17 22:00 02/27/17 14:24 Neurontin - PO 100 mg TID LUC[facility]A Administration Piperacillin Sod/Tazobactam Sod 50 mls @ 100 mls/hr 02/25/17 20:30 02/27/17 09: 42 Zosyn 2.25gm Ivpb (Pre-Docked) IVPB 03/03/17 23:59 100 mls/hr Q8H-IV LUCÍA Administration Protocol Sodium Chloride 1,000 mls @ 60 mls/hr 02/27/17 11:10 02/27/17 12:25 Normal Saline - IV 60 mls/hr ASDIR LUCÍA Administration Lactobacillus Acidophilus 1 tab 02/24/17 12:15 02/27/17 09:41 Bacid - PO 1 tab DAILY LUC[facility]A Administration Lidocaine HCl 1 applic 02/23/17 17:45 Xylocaine 2% Jelly TP PRN PRN PAIN Metoprolol Tartrate 50 mg 02/24/17 10:00 02/27/17 09:40 Lopressor - PO 50 mg DAILY LUCÍA Administration Assessment: 86 year old male male with PMH HTN, HLD, Sciatica, 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 Plan: 1. Hematuria secondary to bladder CA - s/p cystoscopy with irrigation of clot - Cont CBI as per Dr. Lemus 2. Hydronephrosis secondary to bladder CA with KIANNA d/t obstruction - s/p Left nephrostomy tube 02/25/17 - Cr continues to down trend; will monitor 3. Bacteremia - Per micro pre kohler shows yeast - Zosyn per ID - Diflucan restarted for above organism - s/p x1 vanco 02/26 4. Hyponatremia - Improving - Stop salt tabs - Decrease fluids NS 60cc/hr 5. HTN - BP stable - Cont lopressor and metoprolol 6. HLD - Cont atorvastatin 7. Mild wheezing - Albuterol nebs prn Visit type - Emergency Visit Emergency Visit: Yes ED Registration Date: 02/23/17 Care time: The patient presented to the Emergency Department on the above date and was hospitalized for further evaluation of their emergent condition. - New Patient This patient is new to me today: Yes Date on this admission: 02/27/17 - Critical Care Critical Care patient: No
[2017-02-27] MEDS ORDERED: MAGNESIUM SULF 50% (8.12 MEQ/2 ML-1 GM VIAL) IVPB ONE (18:41)
--- NOTE | 2017-02-27 19:10 | PN ---
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 He was noted to have KIANNA, Obstructive Uropathy from increased tumor burden. USG reviewed and results noted. He had cystoscopy and (L) PCN placed. Had fever, rigors and SOB and w/up revealed sepsis. BC and urine (+) for yeast. - Current Medication List Current Medications: Active Medications Acetaminophen (Tylenol -) 650 mg PO Q4H PRN PRN Reason: MODERATE PAIN Last Admin: 02/27/17 06:17 Dose: 650 mg Albuterol Sulfate (Ventolin 0.083% Nebulizer Soln -) 1 amp NEB Q6H PRN PRN Reason: SHORT OF BREATH/WHEEZING Amlodipine Besylate (Norvasc -) 10 mg PO DAILY [facility] Last Admin: 02/27/17 09:40 Dose: 10 mg Atorvastatin Calcium (Lipitor -) 10 mg PO HS [facility] Last Admin: 02/26/17 21:19 Dose: 10 mg Gabapentin (Neurontin -) 100 mg PO TID [facility] Last Admin: 02/27/17 14:24 Dose: 100 mg Piperacillin Sod/Tazobactam Sod (Zosyn 2.25gm Ivpb (Pre-Docked)) 50 mls @ 100 mls/hr IVPB Q8H-IV LUC[facility]A PRN Reason: Protocol Stop: 03/03/17 23:59 Last Admin: 02/27/17 18:43 Dose: 100 mls/hr Sodium Chloride (Normal Saline -) 1,000 mls @ 60 mls/hr IV ASDIR [facility] Last Admin: 02/27/17 12:25 Dose: 60 mls/hr Fluconazole (Diflucan 100 Mg/Ns Premixed Ivpb -) 50 mls @ 100 mls/hr IVPB DAILY @2100 [facility] Lactobacillus Acidophilus (Bacid -) 1 tab PO DAILY [facility] Last Admin: 02/27/17 09:41 Dose: 1 tab Lidocaine HCl (Xylocaine 2% Jelly) 1 applic TP PRN PRN PRN Reason: PAIN Metoprolol Tartrate (Lopressor -) 50 mg PO DAILY [facility] Last Admin: 02/27/17 09:40 Dose: 50 mg - Objective Vital Signs: Vital Signs Temperature 98.8 F 02/27/17 14:29 Pulse Rate 81 02/27/17 14:29 Respiratory Rate 18 02/27/17 14:29 Blood Pressure 117/49 02/27/17 14:29 O2 Sat by Pulse Oximetry (%) 98 02/27/17 14:29 Constitutional: Yes: No Distress Eyes: Yes: PERRL HENT: Yes: Normocephalic Neck: Yes: Supple Cardiovascular: Yes: Regular Rate and Rhythm Respiratory: Yes: CTA Bilaterally Gastrointestinal: Yes: Normal Bowel Sounds, Soft Labs: CBC, BMP 02/27/17 06:00 02/27/17 06:00 INR, PTT INR 1.17 (0.82-1.09) 02/24/17 07:30 Problem List - Problems (1) Fever Code(s): R50.9 - FEVER, UNSPECIFIED Qualifiers: Fever type: unspecified Qualified Code(s): R50.9 - Fever, unspecified (2) Sepsis Code(s): A41.9 - SEPSIS, UNSPECIFIED ORGANISM Qualifiers: Sepsis type: Streptococcus, unspecified Qualified Code(s): A40.9 - Streptococcal sepsis, unspecified; A40 - Streptococcal sepsis Assessment/Plan Fever, Chills/Rigors in pt with bladder Ca s/p cystoscopy, (L) PCN UTI Fungemia CXR reviewed - No infiltrates Continue Zosyn 2.25 gr q 8 hrs DC [facility]co Start Fluconazole 100 mg IV q 24 hrs
[2017-02-27] MEDS: ATORVASTATIN CA 10 MG TABLET (FP) PO SCH (21:03)
[2017-02-27] MEDS: FLUCONAZOLE 100 MG/NS 50 ML IVPB SCH (22:15)
[2017-02-28] MEDS: PIPERACILLIN/TAZOB 2.25 GM 50 ML IVPB SCH ×3 (01:21→18:04)
[2017-02-28] MEDS: GABAPENTIN 100 MG CAPSULE (FP) PO SCH ×3 (06:07→21:03)
[2017-02-28 08:57] LABS: BASOPHIL 0.2 % (0-2.0); EOSINOPHIL 3.3 % (0-4.5); MCH 27.1 pg (25.7-33.7); MEAN CELL VOLUME 82.1 fl (80-96); MEAN PLT VOLUME 8.7 fl (7.5-11.1); NEUTROPHILS 78.3 % (42.8-82.8); PLATELET COUNT 139 K/MM3 (134-434); RDW 15.1 % (11.9-15.9); WHITE BLOOD COUNT 7.5 K/mm3 (4.0-10.8)
[2017-02-28 09:00] LABS: ANION GAP 8 (8-16); CALCIUM 7.6 mg/dl (8.4-10.2); CO2 24 mmol/L (22-28); CREATININE 2.4 mg/dl (0.6-1.3); GLUCOSE,RANDOM 124 mg/dl (74-106); MAGNESIUM 1.9 mg/dL (1.8-2.4)
[2017-02-28] MEDS: METOPROLOL TARTRATE 50 MG TABLET (FP) PO SCH (09:13)
[2017-02-28] MEDS: LACTOBACILLUS ACIDOPHILUS 1 EACH TAB (FP) PO SCH (09:16)
--- NOTE | 2017-02-28 13:05 | PN ---
Physical Exam: SUBJECTIVE: Patient seen and examined, resorts feeling better, CBI in place draining pink urine, pt denies any pain, reports chills have resolved. 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 dmitted from the emergency department for hydronephrosis and hemoturia Vital Signs Period Temp Pulse Resp BP Sys/Askew Pulse Ox Last 24 Hr 98 F-100.1 F 78-93 18-20 117-131/38-49 97-98 GENERAL: The patient is awake, alert, and fully oriented, in no acute distress. HEAD: Normal with no signs of trauma. EYES: PERRL, extraocular movements intact, sclera anicteric, conjunctiva clear. No ptosis. ENT: Ears normal, nares patent, oropharynx clear without exudates, moist mucous membranes. NECK: Trachea midline, full range of motion, supple. LUNGS: Breath sounds equal, fine bibasilar crackles, clear to apexes, no wheezes , no accessory muscle use. HEART: Regular rate and rhythm, S1, S2 without murmur, rub or gallop. ABDOMEN: Soft, nontender, nondistended, normoactive bowel sounds, no guarding, no rebound, no hepatosplenomegaly, no masses. : bilateral nephrostomy tubes draining clear yellow urine R<L, cbi noted, pink tinged urine EXTREMITIES: 2+ pulses, warm, well-perfused, no edema. NEUROLOGICAL: Cranial nerves II through XII grossly intact. Normal speech, gait not observed. PSYCH: Normal mood, normal affect. SKIN: Warm, dry, normal turgor, no rashes or lesions noted Laboratory Results - last 24 hr 02/28/17 02/28/17 07:23 07:23 WBC 7.5 D RBC 3.16 L Hgb 8.6 L Hct 25.9 L MCV 82.1 MCHC 33.0 RDW 15.1 Plt Count 139 MPV 8.7 Neutrophils % 78.3 Lymphocytes % 9.3 Monocytes % 8.9 Eosinophils % 3.3 Basophils % 0.2 Sodium 136 Potassium 3.7 Chloride 104 Carbon Dioxide 24 Anion Gap 8 BUN 42 H D Creatinine 2.4 H Random Glucose 124 H D Calcium 7.6 L Magnesium 1.9 Active Medications Generic Name Dose Route Start Last Admin Trade Name Lucia PRN Reason Stop Dose Admin Acetaminophen 650 mg 02/23/17 17:46 02/27/17 21:57 Tylenol - PO 650 mg Q4H PRN Administration MODERATE PAIN Albuterol Sulfate 1 amp 02/27/17 18:16 Ventolin 0.083% Nebulizer Soln - NEB Q6H PRN SHORT OF BREATH/WHEEZING Amlodipine Besylate 10 mg 02/24/17 10:00 02/27/17 09:40 Norvasc - PO 10 mg DAILY [facility] Administration Atorvastatin Calcium 10 mg 02/23/17 22:00 02/27/17 21:03 Lipitor - PO 10 mg HS [facility] Administration Gabapentin 100 mg 02/23/17 22:00 02/28/17 06:07 Neurontin - PO 100 mg TID [facility] Administration Piperacillin Sod/Tazobactam Sod 50 mls @ 100 mls/hr 02/25/17 20:30 02/28/17 09: 13 Zosyn 2.25gm Ivpb (Pre-Docked) IVPB 03/03/17 23:59 100 mls/hr Q8H-IV [facility]A Administration Protocol Fluconazole 50 mls @ 100 mls/hr 02/27/17 21:00 02/27/17 22:15 Diflucan 100 Mg/Ns Premixed Ivpb - IVPB 100 mls/hr DAILY@2100 [facility] Administration Lactobacillus Acidophilus 1 tab 02/24/17 12:15 02/28/17 09:16 Bacid - PO 1 tab DAILY [facility] Administration Lidocaine HCl 1 applic 02/23/17 17:45 Xylocaine 2% Jelly TP PRN PRN PAIN Metoprolol Tartrate 50 mg 02/24/17 10:00 02/28/17 09:13 Lopressor - PO 50 mg DAILY [facility] Administration Microbiology 02/25/17 20:30 Blood - Peripheral Venous Yeast/Fungus Identification - Preliminary Yeast Like Organism 02/25/17 20:45 Blood - Peripheral Venous Blood Culture - Final Yeast Like Organism 02/25/17 20:30 Blood - Peripheral Venous Blood Culture - Preliminary Yeast Like Organism 02/25/17 18:30 Urine - Urine Nephrostomy Tube Urine Culture - Final 02/24/17 Unknown Urine - Urine Nephrostomy Tube Urine Culture - Final Enterococcus Faecalis 02/25/17 13:45 Urine - Urine Nephrostomy Tube Urine Culture - Final Yeast Like Organism 02/23/17 08:52 Urine - Urine Clean Catch Urine Culture - Final Contaminated: Please Repeat ASSESSMENT/PLAN: 1. Hematuria secondary to bladder CA - s/p cystoscopy with irrigation of clot - Cont CBI as per Dr. Lemus Hydronephrosis secondary to bladder CA with KIANNA d/t obstruction - s/p Left nephrostomy tube 02/25/17 - Cr continues to down trend; close monitoring repeat creatine in AM 2) ID sepsis likely secondary to bactremia from tract - contineu zosyn (day 3) and diflucan ( day 2) - low grade temp noted, no leukocytosis -ID ([facility]) consulted and followed 3) card hypertension - b/p stable, continue lopressor hld - continue atorvastin f/e/n - regular diet severe protein calorie malnutrition in setting of metastic ca - start ensure and prostat - appreciate dietary input ppx - hold ac due hematuria - pt - oob - scd dispo: requires inpatient care DNR/DNI Visit type - Emergency Visit Emergency Visit: Yes ED Registration Date: 02/23/17 Care time: The patient presented to the Emergency Department on the above date and was hospitalized for further evaluation of their emergent condition. - New Patient This patient is new to me today: No - Critical Care Critical Care patient: No - Discharge Referral Referred to [facility] Med P.C.: No
[2017-02-28] MEDS: amLODIPine BESYLATE 10 MG TABLET (FP) PO SCH (13:34)
--- NOTE | 2017-02-28 14:51 | PN ---
Progress Note, Physician History of Present Illness: Pt seen and examined at bedside. He is awake and alert. He denies shortness of breath. He denies fevers or chills. - Current Medication List Current Medications: Active Medications Acetaminophen (Tylenol -) 650 mg PO Q4H PRN PRN Reason: MODERATE PAIN Last Admin: 02/27/17 21:57 Dose: 650 mg Albuterol Sulfate (Ventolin 0.083% Nebulizer Soln -) 1 amp NEB Q6H PRN PRN Reason: SHORT OF BREATH/WHEEZING Amino Acids (Prosource No Carb Liquid Pkt) 30 ml PO BID@0800,1730 [facility] Amlodipine Besylate (Norvasc -) 10 mg PO DAILY [facility] Last Admin: 02/28/17 13:34 Dose: Not Given Atorvastatin Calcium (Lipitor -) 10 mg PO HS [facility] Last Admin: 02/27/17 21:03 Dose: 10 mg Gabapentin (Neurontin -) 100 mg PO TID [facility] Last Admin: 02/28/17 13:20 Dose: 100 mg Piperacillin Sod/Tazobactam Sod (Zosyn 2.25gm Ivpb (Pre-Docked)) 50 mls @ 100 mls/hr IVPB Q8H-IV LUCÍA PRN Reason: Protocol Stop: 03/03/17 23:59 Last Admin: 02/28/17 09:13 Dose: 100 mls/hr Fluconazole (Diflucan 100 Mg/Ns Premixed Ivpb -) 50 mls @ 100 mls/hr IVPB DAILY @2100 [facility] Last Admin: 02/27/17 22:15 Dose: 100 mls/hr Lactobacillus Acidophilus (Bacid -) 1 tab PO DAILY [facility] Last Admin: 02/28/17 09:16 Dose: 1 tab Lidocaine HCl (Xylocaine 2% Jelly) 1 applic TP PRN PRN PRN Reason: PAIN Metoprolol Tartrate (Lopressor -) 50 mg PO DAILY [facility] Last Admin: 02/28/17 09:13 Dose: 50 mg - Objective Vital Signs: Vital Signs Temperature 97.5 F L 02/28/17 14:04 Pulse Rate 78 02/28/17 14:04 Respiratory Rate 18 02/28/17 14:04 Blood Pressure 99/42 02/28/17 14:04 O2 Sat by Pulse Oximetry (%) 99 05/01/17 14:04 Constitutional: Yes: Calm Eyes: Yes: Conjunctiva Clear HENT: Yes: Atraumatic Neck: Yes: Supple Cardiovascular: Yes: S1, S2 Gastrointestinal: Yes: Soft Genitourinary: Yes: Other (CBI, bilateral nephrolstomy tubes) Musculoskeletal: Yes: WNL Edema: No Neurological: Yes: Oriented Psychiatric: Yes: Oriented Labs: CBC, BMP 02/28/17 07:23 02/28/17 07:23 INR, PTT INR 1.17 (0.82-1.09) 02/24/17 07:30 Problem List - Problems (1) KIANNA (acute kidney injury) Code(s): N17.9 - ACUTE KIDNEY FAILURE, UNSPECIFIED (2) Bladder cancer Code(s): C67.9 - MALIGNANT NEOPLASM OF BLADDER, UNSPECIFIED Qualifiers: Bladder location: unspecified site Qualified Code(s): C67.9 - Malignant neoplasm of bladder, unspecified (3) Hematuria Code(s): R31.9 - HEMATURIA, UNSPECIFIED Assessment/Plan Current Medications Generic Name Dose Route Start Last Admin Trade Name Freq PRN Reason Stop Dose Admin Acetaminophen 650 mg 02/23/17 17:46 02/27/17 21:57 Tylenol - PO 650 mg Q4H PRN Administration MODERATE PAIN Albuterol Sulfate 1 amp 02/27/17 18:16 Ventolin 0.083% Nebulizer Soln - NEB Q6H PRN SHORT OF BREATH/WHEEZING Amino Acids 30 ml 02/28/17 17:30 Prosource No Carb Liquid Pkt PO BID@0800,1730 [facility] Amlodipine Besylate 10 mg 02/24/17 10:00 02/28/17 13:34 Norvasc - PO Not Given DAILY [facility] Atorvastatin Calcium 10 mg 02/23/17 22:00 02/27/17 21:03 Lipitor - PO 10 mg HS [facility] Administration Gabapentin 100 mg 02/23/17 22:00 02/28/17 13:20 Neurontin - PO 100 mg TID [facility] Administration Piperacillin Sod/Tazobactam Sod 50 mls @ 100 mls/hr 02/25/17 20:30 02/28/17 09: 13 Zosyn 2.25gm Ivpb (Pre-Docked) IVPB 03/03/17 23:59 100 mls/hr Q8H-IV LUCÍA Administration Protocol Fluconazole 50 mls @ 100 mls/hr 02/27/17 21:00 02/27/17 22:15 Diflucan 100 Mg/Ns Premixed Ivpb - IVPB 100 mls/hr DAILY@2100 [facility] Administration Lactobacillus Acidophilus 1 tab 02/24/17 12:15 02/28/17 09:16 Bacid - PO 1 tab DAILY [facility] Administration Lidocaine HCl 1 applic 02/23/17 17:45 Xylocaine 2% Jelly TP PRN PRN PAIN Metoprolol Tartrate 50 mg 02/24/17 10:00 02/28/17 09:13 Lopressor - PO 50 mg DAILY [facility] Administration Impression 1. KIANNA 2. UTI 3. bladder cancer 4. HTN 5. hyponatremia 6. hyperlipidemia 7. gross hematuria Plan - renal function continues to improve - will decrease fluids - repeat labs in am - urology follow up - abx per ID - monitor ouput from nephrostomy tubes Dr Hussein
[2017-02-28] MEDS: SODIUM CHLORIDE 1,000 ML IV SCH (16:46)
[2017-02-28] MEDS: AMINO ACIDS/PROTEIN HYDROLYS 30 ML LIQUID.PKT PO SCH (18:04)
--- NOTE | 2017-02-28 19:41 | PN ---
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 He was noted to have KIANNA, Obstructive Uropathy from increased tumor burden. USG reviewed and results noted. He had cystoscopy and (L) PCN placed. Had fever, rigors and SOB and w/up revealed sepsis. BC and urine (+) for yeast. Feeling beter today. - Current Medication List Current Medications: Active Medications Acetaminophen (Tylenol -) 650 mg PO Q4H PRN PRN Reason: MODERATE PAIN Last Admin: 02/27/17 21:57 Dose: 650 mg Albuterol Sulfate (Ventolin 0.083% Nebulizer Soln -) 1 amp NEB Q6H PRN PRN Reason: SHORT OF BREATH/WHEEZING Amino Acids (Prosource No Carb Liquid Pkt) 30 ml PO BID@0800,1730 [facility] Last Admin: 02/28/17 18:04 Dose: 30 ml Amlodipine Besylate (Norvasc -) 10 mg PO DAILY [facility] Last Admin: 02/28/17 13:34 Dose: Not Given Atorvastatin Calcium (Lipitor -) 10 mg PO HS [facility] Last Admin: 02/27/17 21:03 Dose: 10 mg Gabapentin (Neurontin -) 100 mg PO TID [facility] Last Admin: 02/28/17 13:20 Dose: 100 mg Piperacillin Sod/Tazobactam Sod (Zosyn 2.25gm Ivpb (Pre-Docked)) 50 mls @ 100 mls/hr IVPB Q8H-IV LUCÍA PRN Reason: Protocol Stop: 03/03/17 23:59 Last Admin: 02/28/17 18:04 Dose: 100 mls/hr Fluconazole (Diflucan 100 Mg/Ns Premixed Ivpb -) 50 mls @ 100 mls/hr IVPB DAILY @2100 [facility] Last Admin: 02/27/17 22:15 Dose: 100 mls/hr Lactobacillus Acidophilus (Bacid -) 1 tab PO DAILY [facility] Last Admin: 02/28/17 09:16 Dose: 1 tab Lidocaine HCl (Xylocaine 2% Jelly) 1 applic TP PRN PRN PRN Reason: PAIN Metoprolol Tartrate (Lopressor -) 50 mg PO DAILY [facility] Last Admin: 02/28/17 09:13 Dose: 50 mg - Objective Vital Signs: Vital Signs Temperature 97.5 F L 02/28/17 14:04 Pulse Rate 78 02/28/17 14:04 Respiratory Rate 18 02/28/17 14:04 Blood Pressure 99/42 02/28/17 14:04 O2 Sat by Pulse Oximetry (%) 99 02/28/17 14:04 Constitutional: Yes: No Distress Neck: Yes: Supple Cardiovascular: Yes: Regular Rate and Rhythm Respiratory: Yes: CTA Bilaterally Gastrointestinal: Yes: Normal Bowel Sounds, Soft Labs: CBC, BMP 02/28/17 07:23 02/28/17 07:23 INR, PTT INR 1.17 (0.82-1.09) 02/24/17 07:30 Problem List - Problems (1) Fever Code(s): R50.9 - FEVER, UNSPECIFIED Qualifiers: Fever type: unspecified Qualified Code(s): R50.9 - Fever, unspecified (2) Sepsis Code(s): A41.9 - SEPSIS, UNSPECIFIED ORGANISM Qualifiers: Sepsis type: Streptococcus, unspecified Qualified Code(s): A40.9 - Streptococcal sepsis, unspecified; A40 - Streptococcal sepsis Assessment/Plan Fever, Chills/Rigors in pt with bladder Ca s/p cystoscopy, (L) PCN UTI Fungemia Continue Zosyn 2.25 gr q 8 hrs Continue Fluconazole 100 mg IV q 24 hrs Repeat BC X 2 in AM
[2017-02-28] MEDS ORDERED: PT OWN MED DRAWER 7, Y5N ONE (21:02)
[2017-02-28] MEDS: FLUCONAZOLE 100 MG/NS 50 ML IVPB SCH (21:03)
[2017-02-28] MEDS: ATORVASTATIN CA 10 MG TABLET (FP) PO SCH (21:03)
[2017-03-01] MEDS: PIPERACILLIN/TAZOB 2.25 GM 50 ML IVPB SCH ×3 (01:19→17:03)
[2017-03-01] MEDS: GABAPENTIN 100 MG CAPSULE (FP) PO SCH ×3 (06:33→21:11)
--- NOTE | 2017-03-01 07:48 | PN ---
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 dmitted from the emergency department for hydronephrosis and hemoturia Vital Signs Period Temp Pulse Resp BP Sys/Askew Pulse Ox Last 24 Hr 97.5 F-99.2 F 76-93 18-18 99-134/38-50 96-99 GENERAL: The patient is awake, alert, and fully oriented, in no acute distress. HEAD: Normal with no signs of trauma. EYES: PERRL, extraocular movements intact, sclera anicteric, conjunctiva clear. No ptosis. ENT: Ears normal, nares patent, oropharynx clear without exudates, moist mucous membranes. NECK: Trachea midline, full range of motion, supple. LUNGS: Breath sounds equal, clear bilaterally throughout, diminished at bases, no wheezes, no accessory muscle use. HEART: Regular rate and rhythm, S1, S2 without murmur, rub or gallop. ABDOMEN: Soft, nontender, nondistended, normoactive bowel sounds, no guarding, no rebound, no hepatosplenomegaly, no masses. : bilateral nephrostomy tubes draining clear yellow urine R<L, cbi noted, clear urine EXTREMITIES: 2+ pulses, warm, well-perfused, no edema. NEUROLOGICAL: Cranial nerves II through XII grossly intact. Normal speech, gait not observed. PSYCH: Normal mood, normal affect. SKIN: Warm, dry, normal turgor, no rashes or lesions noted Laboratory Results - last 24 hr 02/28/17 02/28/17 07:23 07:23 WBC 7.5 D RBC 3.16 L Hgb 8.6 L Hct 25.9 L MCV 82.1 MCHC 33.0 RDW 15.1 Plt Count 139 MPV 8.7 Neutrophils % 78.3 Lymphocytes % 9.3 Monocytes % 8.9 Eosinophils % 3.3 Basophils % 0.2 Sodium 136 Potassium 3.7 Chloride 104 Carbon Dioxide 24 Anion Gap 8 BUN 42 H D Creatinine 2.4 H Random Glucose 124 H D Calcium 7.6 L Magnesium 1.9 Active Medications Generic Name Dose Route Start Last Admin Trade Name Freq PRN Reason Stop Dose Admin Acetaminophen 650 mg 02/23/17 17:46 02/27/17 21:57 Tylenol - PO 650 mg Q4H PRN Administration MODERATE PAIN Albuterol Sulfate 1 amp 02/27/17 18:16 Ventolin 0.083% Nebulizer Soln - NEB Q6H PRN SHORT OF BREATH/WHEEZING Amino Acids 30 ml 02/28/17 17:30 02/28/17 18:04 Prosource No Carb Liquid Pkt PO 30 ml BID@0800,1730 [facility] Administration Amlodipine Besylate 10 mg 02/24/17 10:00 02/28/17 13:34 Norvasc - PO Not Given DAILY [facility] Atorvastatin Calcium 10 mg 02/23/17 22:00 02/28/17 21:03 Lipitor - PO 10 mg HS [facility] Administration Gabapentin 100 mg 02/23/17 22:00 03/01/17 06:33 Neurontin - PO 100 mg TID [facility] Administration Piperacillin Sod/Tazobactam Sod 50 mls @ 100 mls/hr 02/25/17 20:30 03/01/17 01: 19 Zosyn 2.25gm Ivpb (Pre-Docked) IVPB 03/03/17 23:59 100 mls/hr Q8H-IV [facility]A Administration Protocol Fluconazole 50 mls @ 100 mls/hr 02/27/17 21:00 02/28/17 21:03 Diflucan 100 Mg/Ns Premixed Ivpb - IVPB 100 mls/hr DAILY@2100 [facility] Administration Lactobacillus Acidophilus 1 tab 02/24/17 12:15 02/28/17 09:16 Bacid - PO 1 tab DAILY [facility] Administration Lidocaine HCl 1 applic 02/23/17 17:45 Xylocaine 2% Jelly TP PRN PRN PAIN Metoprolol Tartrate 50 mg 02/24/17 10:00 02/28/17 09:13 Lopressor - PO 50 mg DAILY [facility] Administration Microbiology 02/25/17 20:30 Blood - Peripheral Venous Blood Culture - Preliminary Yeast Like Organism 02/25/17 20:30 Blood - Peripheral Venous Yeast/Fungus Identification - Preliminary Yeast Like Organism 02/25/17 20:45 Blood - Peripheral Venous Blood Culture - Final Yeast Like Organism 02/25/17 18:30 Urine - Urine Nephrostomy Tube Urine Culture - Final 02/24/17 Unknown Urine - Urine Nephrostomy Tube Urine Culture - Final Enterococcus Faecalis 02/25/17 13:45 Urine - Urine Nephrostomy Tube Urine Culture - Final Yeast Like Organism 02/23/17 08:52 Urine - Urine Clean Catch Urine Culture - Final Contaminated: Please Repeat ASSESSMENT/PLAN: 1. Hematuria secondary to bladder CA - s/p cystoscopy with irrigation of clot - d/c CBI as per Dr. Lemus Hydronephrosis secondary to bladder CA with KIANNA d/t obstruction - s/p Left nephrostomy tube 02/25/17 - Creatine stable close to baseline 2) ID sepsis likely secondary to bactremia from tract - contineu zosyn (day 4) and diflucan ( day 3) - pt afebrile, no leukocytosis - repeat blood cultures ordered and sent - -ID ([facility]) consulted and followed 3) card hypertension - b/p stable, continue lopressor hld - continue atorvastin f/e/n - regular diet severe protein calorie malnutrition in setting of metastic ca - start ensure and prostat - appreciate dietary input ppx - hold ac due hematuria - pt - oob - scd dispo: requires inpatient care DNR/DNI Visit type - Emergency Visit Emergency Visit: Yes ED Registration Date: 02/23/17 Care time: The patient presented to the Emergency Department on the above date and was hospitalized for further evaluation of their emergent condition. - New Patient This patient is new to me today: No - Critical Care Critical Care patient: No - Discharge Referral Referred to [facility] Med P.C.: No
[2017-03-01 09:07] LABS: ANION GAP 9 (8-16); CALCIUM 7.9 mg/dl (8.4-10.2); CO2 26 mmol/L (22-28); CREATININE 2.4 mg/dl (0.6-1.3); GLUCOSE,RANDOM 115 mg/dl (74-106)
[2017-03-01] MEDS: LACTOBACILLUS ACIDOPHILUS 1 EACH TAB (FP) PO SCH (09:29)
[2017-03-01] MEDS: AMINO ACIDS/PROTEIN HYDROLYS 30 ML LIQUID.PKT PO SCH ×2 (09:29→17:02)
[2017-03-01] MEDS: METOPROLOL TARTRATE 50 MG TABLET (FP) PO SCH (09:29)
[2017-03-01] MEDS: amLODIPine BESYLATE 10 MG TABLET (FP) PO SCH (09:29)
--- NOTE | 2017-03-01 12:39 | PN ---
Progress Note, Physician History of Present Illness: Pt seen and examined at bedside. He is out of bed to chair. He says he feels well. - Current Medication List Current Medications: Active Medications Acetaminophen (Tylenol -) 650 mg PO Q4H PRN PRN Reason: MODERATE PAIN Last Admin: 02/27/17 21:57 Dose: 650 mg Albuterol Sulfate (Ventolin 0.083% Nebulizer Soln -) 1 amp NEB Q6H PRN PRN Reason: SHORT OF BREATH/WHEEZING Amino Acids (Prosource No Carb Liquid Pkt) 30 ml PO BID@0800,1730 [facility] Last Admin: 03/01/17 09:29 Dose: 30 ml Amlodipine Besylate (Norvasc -) 10 mg PO DAILY [facility] Last Admin: 03/01/17 09:29 Dose: 10 mg Atorvastatin Calcium (Lipitor -) 10 mg PO HS [facility] Last Admin: 02/28/17 21:03 Dose: 10 mg Gabapentin (Neurontin -) 100 mg PO TID [facility] Last Admin: 03/01/17 06:33 Dose: 100 mg Piperacillin Sod/Tazobactam Sod (Zosyn 2.25gm Ivpb (Pre-Docked)) 50 mls @ 100 mls/hr IVPB Q8H-IV LUCÍA PRN Reason: Protocol Stop: 03/03/17 23:59 Last Admin: 03/01/17 09:28 Dose: 100 mls/hr Fluconazole (Diflucan 100 Mg/Ns Premixed Ivpb -) 50 mls @ 100 mls/hr IVPB DAILY @2100 [facility] Last Admin: 02/28/17 21:03 Dose: 100 mls/hr Lactobacillus Acidophilus (Bacid -) 1 tab PO DAILY [facility] Last Admin: 03/01/17 09:29 Dose: 1 tab Lidocaine HCl (Xylocaine 2% Jelly) 1 applic TP PRN PRN PRN Reason: PAIN Metoprolol Tartrate (Lopressor -) 50 mg PO DAILY [facility] Last Admin: 03/01/17 09:29 Dose: 50 mg - Objective Vital Signs: Vital Signs Temperature 98.5 F 03/01/17 04:00 Pulse Rate 78 03/01/17 04:00 Respiratory Rate 18 03/01/17 10:00 Blood Pressure 134/50 03/01/17 04:00 O2 Sat by Pulse Oximetry (%) 96 03/01/17 09:00 Constitutional: Yes: Calm Eyes: Yes: Conjunctiva Clear HENT: Yes: Atraumatic Neck: Yes: Supple Cardiovascular: Yes: S1, S2 Respiratory: Yes: CTA Bilaterally Gastrointestinal: Yes: Normal Bowel Sounds, Soft Genitourinary: Yes: Other (cbi, bilateral nephrostomy tubes) Extremities: Yes: WNL Edema: No Neurological: Yes: Oriented Psychiatric: Yes: Oriented Labs: CBC, BMP 02/28/17 07:23 03/01/17 08:20 INR, PTT INR 1.17 (0.82-1.09) 02/24/17 07:30 Problem List - Problems (1) KIANNA (acute kidney injury) Code(s): N17.9 - ACUTE KIDNEY FAILURE, UNSPECIFIED (2) Bladder cancer Code(s): C67.9 - MALIGNANT NEOPLASM OF BLADDER, UNSPECIFIED Qualifiers: Bladder location: unspecified site Qualified Code(s): C67.9 - Malignant neoplasm of bladder, unspecified (3) Hematuria Code(s): R31.9 - HEMATURIA, UNSPECIFIED Assessment/Plan Current Medications Generic Name Dose Route Start Last Admin Trade Name Freq PRN Reason Stop Dose Admin Acetaminophen 650 mg 02/23/17 17:46 02/27/17 21:57 Tylenol - PO 650 mg Q4H PRN Administration MODERATE PAIN Albuterol Sulfate 1 amp 02/27/17 18:16 Ventolin 0.083% Nebulizer Soln - NEB Q6H PRN SHORT OF BREATH/WHEEZING Amino Acids 30 ml 02/28/17 17:30 03/01/17 09:29 Prosource No Carb Liquid Pkt PO 30 ml BID@0800,1730 [facility] Administration Amlodipine Besylate 10 mg 02/24/17 10:00 03/01/17 09:29 Norvasc - PO 10 mg DAILY [facility] Administration Atorvastatin Calcium 10 mg 02/23/17 22:00 02/28/17 21:03 Lipitor - PO 10 mg HS LUC[facility]A Administration Gabapentin 100 mg 02/23/17 22:00 03/01/17 06:33 Neurontin - PO 100 mg TID LUC[facility]A Administration Piperacillin Sod/Tazobactam Sod 50 mls @ 100 mls/hr 02/25/17 20:30 03/01/17 09: 28 Zosyn 2.25gm Ivpb (Pre-Docked) IVPB 03/03/17 23:59 100 mls/hr Q8H-IV LUCÍA Administration Protocol Fluconazole 50 mls @ 100 mls/hr 02/27/17 21:00 02/28/17 21:03 Diflucan 100 Mg/Ns Premixed Ivpb - IVPB 100 mls/hr DAILY@2100 [facility] Administration Lactobacillus Acidophilus 1 tab 02/24/17 12:15 03/01/17 09:29 Bacid - PO 1 tab DAILY [facility] Administration Lidocaine HCl 1 applic 02/23/17 17:45 Xylocaine 2% Jelly TP PRN PRN PAIN Metoprolol Tartrate 50 mg 02/24/17 10:00 03/01/17 09:29 Lopressor - PO 50 mg DAILY [facility] Administration Impression 1. KIANNA 2. UTI 3. bladder cancer 4. HTN 5. hyponatremia 6. hyperlipidemia 7. gross hematuria Plan - renal function is stabilizing, will cont to monitor to see where creatinine levels off - urology follow up for cbi, urine is clear - monitor bmp and lytes - will follow PRN - abx per ID - monitor ouput from nephrostomy tubes Dr Hussein
[2017-03-01] MEDS ORDERED: PT OWN MED DRAWER 7, Y5N ONE (20:44)
[2017-03-01] MEDS: FLUCONAZOLE 100 MG/NS 50 ML IVPB SCH (20:48)
[2017-03-01] MEDS: ATORVASTATIN CA 10 MG TABLET (FP) PO SCH (21:11)
[2017-03-02] MEDS: PIPERACILLIN/TAZOB 2.25 GM 50 ML IVPB SCH ×2 (01:32→10:04)
[2017-03-02] MEDS: GABAPENTIN 100 MG CAPSULE (FP) PO SCH ×3 (06:09→22:13)
[2017-03-02] MEDS: AMINO ACIDS/PROTEIN HYDROLYS 30 ML LIQUID.PKT PO SCH ×2 (08:30→16:48)
[2017-03-02] MEDS: METOPROLOL TARTRATE 50 MG TABLET (FP) PO SCH (10:04)
[2017-03-02] MEDS: LACTOBACILLUS ACIDOPHILUS 1 EACH TAB (FP) PO SCH (10:04)
[2017-03-02] MEDS: amLODIPine BESYLATE 10 MG TABLET (FP) PO SCH (10:04)
--- NOTE | 2017-03-02 10:39 | PN ---
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 He was noted to have KIANNA, Obstructive Uropathy from increased tumor burden. USG reviewed and results noted. He had cystoscopy and (L) PCN placed. Had fever, rigors and SOB and w/up revealed sepsis. BC and urine (+) for yeast. No complaints at present time. - Current Medication List Current Medications: Active Medications Acetaminophen (Tylenol -) 650 mg PO Q4H PRN PRN Reason: MODERATE PAIN Last Admin: 02/27/17 21:57 Dose: 650 mg Albuterol Sulfate (Ventolin 0.083% Nebulizer Soln -) 1 amp NEB Q6H PRN PRN Reason: SHORT OF BREATH/WHEEZING Amino Acids (Prosource No Carb Liquid Pkt) 30 ml PO BID@0800,1730 [facility] Last Admin: 03/02/17 08:30 Dose: 30 ml Amlodipine Besylate (Norvasc -) 10 mg PO DAILY [facility] Last Admin: 03/02/17 10:04 Dose: 10 mg Atorvastatin Calcium (Lipitor -) 10 mg PO HS [facility] Last Admin: 03/01/17 21:11 Dose: 10 mg Gabapentin (Neurontin -) 100 mg PO TID [facility] Last Admin: 03/02/17 06:09 Dose: 100 mg Fluconazole (Diflucan 100 Mg/Ns Premixed Ivpb -) 50 mls @ 100 mls/hr IVPB DAILY @2100 [facility] Last Admin: 03/01/17 20:48 Dose: 100 mls/hr Lactobacillus Acidophilus (Bacid -) 1 tab PO DAILY [facility] Last Admin: 03/02/17 10:04 Dose: 1 tab Lidocaine HCl (Xylocaine 2% Jelly) 1 applic TP PRN PRN PRN Reason: PAIN Metoprolol Tartrate (Lopressor -) 50 mg PO DAILY [facility] Last Admin: 03/02/17 10:04 Dose: 50 mg - Objective Vital Signs: Vital Signs Temperature 98.2 F 03/02/17 10:01 Pulse Rate 87 03/02/17 10:01 Respiratory Rate 18 03/02/17 10:01 Blood Pressure 122/43 03/02/17 10:01 O2 Sat by Pulse Oximetry (%) 95 03/02/17 08:41 Constitutional: Yes: No Distress, Calm Eyes: Yes: PERRL Neck: Yes: Supple Cardiovascular: Yes: Regular Rate and Rhythm Respiratory: Yes: Regular, CTA Bilaterally Gastrointestinal: Yes: Normal Bowel Sounds, Soft ...Rectal Exam: Yes: Deferred Genitourinary: Yes: Hebert Present, Other (Bilateral PCN - sites are clean without redness or tenderness) Musculoskeletal: No: Back Pain, Joint Stiffness Extremities: No: Calf Tenderness Edema: No Labs: CBC, BMP 02/28/17 07:23 03/01/17 08:20 INR, PTT INR 1.17 (0.82-1.09) 02/24/17 07:30 Problem List - Problems (1) Fever Code(s): R50.9 - FEVER, UNSPECIFIED Qualifiers: Fever type: unspecified Qualified Code(s): R50.9 - Fever, unspecified (2) Sepsis Code(s): A41.9 - SEPSIS, UNSPECIFIED ORGANISM Qualifiers: Sepsis type: Streptococcus, unspecified Qualified Code(s): A40.9 - Streptococcal sepsis, unspecified; A40 - Streptococcal sepsis Assessment/Plan Fever, Chills/Rigors in pt with bladder Ca s/p cystoscopy, (L) PCN UTI Fungemia Can DC Zosyn after this AM's dose Continue Fluconazole 100 mg IV q 24 hrs Awaiting BC results He wishes to go to [facility]
--- NOTE | 2017-03-02 12:26 | PN ---
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 dmitted from the emergency department for hydronephrosis and hemoturia Vital Signs Period Temp Pulse Resp BP Sys/Askew Pulse Ox Last 24 Hr 97.9 F-98.4 F 76-96 14-20 94-142/43-63 95-100 GENERAL: The patient is awake, alert, and fully oriented, in no acute distress. HEAD: Normal with no signs of trauma. EYES: PERRL, extraocular movements intact, sclera anicteric, conjunctiva clear. No ptosis. ENT: Ears normal, nares patent, oropharynx clear without exudates, moist mucous membranes. NECK: Trachea midline, full range of motion, supple. LUNGS: Breath sounds equal, clear bilaterally throughout, diminished at bases, no wheezes, no accessory muscle use. HEART: Regular rate and rhythm, S1, S2 without murmur, rub or gallop. ABDOMEN: Soft, nontender, nondistended, normoactive bowel sounds, no guarding, no rebound, no hepatosplenomegaly, no masses. : bilateral nephrostomy tubes draining clear yellow urine R<L, sullivan clear yellow urine EXTREMITIES: 2+ pulses, warm, well-perfused, no edema. NEUROLOGICAL: Cranial nerves II through XII grossly intact. Normal speech, gait not observed. PSYCH: Normal mood, normal affect. SKIN: Warm, dry, normal turgor, no rashes or lesions noted Active Medications Generic Name Dose Route Start Last Admin Trade Name Freq PRN Reason Stop Dose Admin Acetaminophen 650 mg 02/23/17 17:46 02/27/17 21:57 Tylenol - PO 650 mg Q4H PRN Administration MODERATE PAIN Albuterol Sulfate 1 amp 02/27/17 18:16 Ventolin 0.083% Nebulizer Soln - NEB Q6H PRN SHORT OF BREATH/WHEEZING Amino Acids 30 ml 02/28/17 17:30 03/02/17 08:30 Prosource No Carb Liquid Pkt PO 30 ml BID@0800,1730 L[facility]A Administration Amlodipine Besylate 10 mg 02/24/17 10:00 03/02/17 10:04 Norvasc - PO 10 mg DAILY [facility]A Administration Atorvastatin Calcium 10 mg 02/23/17 22:00 03/01/17 21:11 Lipitor - PO 10 mg HS LUC[facility]A Administration Gabapentin 100 mg 02/23/17 22:00 03/02/17 06:09 Neurontin - PO 100 mg TID LUC[facility]A Administration Fluconazole 50 mls @ 100 mls/hr 02/27/17 21:00 03/01/17 20:48 Diflucan 100 Mg/Ns Premixed Ivpb - IVPB 100 mls/hr DAILY@2100 L[facility]A Administration Lactobacillus Acidophilus 1 tab 02/24/17 12:15 03/02/17 10:04 Bacid - PO 1 tab DAILY [facility]A Administration Lidocaine HCl 1 applic 02/23/17 17:45 Xylocaine 2% Jelly TP PRN PRN PAIN Metoprolol Tartrate 50 mg 02/24/17 10:00 03/02/17 10:04 Lopressor - PO 50 mg DAILY [facility]A Administration Microbiology 03/01/17 05:35 Blood - Peripheral Venous Blood Culture - Preliminary NO GROWTH OBTAINED AFTER 24 HOURS, INCUBATION TO CONTINUE FOR 4 DAYS. 03/01/17 06:00 Blood - Peripheral Venous Blood Culture - Preliminary NO GROWTH OBTAINED AFTER 24 HOURS, INCUBATION TO CONTINUE FOR 4 DAYS. 02/28/17 20:20 Blood - Peripheral Venous Blood Culture - Preliminary NO GROWTH OBTAINED AFTER 24 HOURS, INCUBATION TO CONTINUE FOR 4 DAYS. 02/28/17 19:50 Blood - Peripheral Venous Blood Culture - Preliminary NO GROWTH OBTAINED AFTER 24 HOURS, INCUBATION TO CONTINUE FOR 4 DAYS. 02/25/17 20:30 Blood - Peripheral Venous Blood Culture - Preliminary Yeast Like Organism 02/25/17 20:30 Blood - Peripheral Venous Yeast/Fungus Identification - Preliminary Yeast Like Organism 02/25/17 20:45 Blood - Peripheral Venous Blood Culture - Final Yeast Like Organism 02/25/17 18:30 Urine - Urine Nephrostomy Tube Urine Culture - Final 02/24/17 Unknown Urine - Urine Nephrostomy Tube Urine Culture - Final Enterococcus Faecalis 02/25/17 13:45 Urine - Urine Nephrostomy Tube Urine Culture - Final Yeast Like Organism 02/23/17 08:52 Urine - Urine Clean Catch Urine Culture - Final Contaminated: Please Repeat ASSESSMENT/PLAN: 1. Hematuria secondary to bladder CA - s/p cystoscopy with irrigation of clot, cbi dc'd 5/2/17 Hydronephrosis secondary to bladder CA with KIANNA d/t obstruction - s/p Left nephrostomy tube 02/25/17 - Creatine stable close to baseline 2) ID sepsis likely secondary to bactremia from tract - contineu zosyn (day 5) and diflucan ( day 4), d/c zosyn after today's dose as per ID - pt afebrile, no leukocytosis - repeat blood cultures ordered and sent - -ID (Catina) consulted and followed 3) card hypertension - b/p stable, continue lopressor hld - continue atorvastin f/e/n - regular diet severe protein calorie malnutrition in setting of metastic ca - ensure and prostat - appreciate dietary input ppx - hold ac due hematuria - pt - oob - scd dispo: requires inpatient care DNR/DNI Visit type - Emergency Visit Emergency Visit: Yes ED Registration Date: 02/23/17 Care time: The patient presented to the Emergency Department on the above date and was hospitalized for further evaluation of their emergent condition. - New Patient This patient is new to me today: No - Critical Care Critical Care patient: No - Discharge Referral Referred to [facility] Med P.C.: No
[2017-03-02] MEDS ORDERED: PT OWN MED DRAWER 7, Y5N ONE (20:30)
[2017-03-02] MEDS: FLUCONAZOLE 100 MG/NS 50 ML IVPB SCH (20:44)
[2017-03-02] MEDS: ATORVASTATIN CA 10 MG TABLET (FP) PO SCH (22:11)
[2017-03-03] MEDS: GABAPENTIN 100 MG CAPSULE (FP) PO SCH (06:46)
[2017-03-03] MEDS: AMINO ACIDS/PROTEIN HYDROLYS 30 ML LIQUID.PKT PO SCH ×2 (08:01→16:54)
[2017-03-03] MEDS: METOPROLOL TARTRATE 50 MG TABLET (FP) PO SCH (09:31)
[2017-03-03] MEDS: LACTOBACILLUS ACIDOPHILUS 1 EACH TAB (FP) PO SCH (09:31)
[2017-03-03] MEDS: amLODIPine BESYLATE 10 MG TABLET (FP) PO SCH (09:31)
[2017-03-03] MEDS ORDERED: LOPERAMIDE HCL 2 MG CAPSULE PO ONE (10:29)
--- NOTE | 2017-03-03 11:36 | PN ---
[id number] and place reports his daughter is coming at 1300 which now ( clock's time is 1000). 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 admitted from the emergency department for hydronephrosis and hemoturia Vital Signs Period Temp Pulse Resp BP Sys/Askew Pulse Ox Last 24 Hr 97.4 F-98.4 F 72-86 18-19 119-135/44-53 94-96 GENERAL: The patient is awake, alert, and fully oriented, in no acute distress. HEAD: Normal with no signs of trauma. EYES: PERRL, extraocular movements intact, sclera anicteric, conjunctiva clear. No ptosis. ENT: Ears normal, nares patent, oropharynx clear without exudates, moist mucous membranes. NECK: Trachea midline, full range of motion, supple. LUNGS: Breath sounds equal, clear bilaterally throughout, diminished at bases, no wheezes, no accessory muscle use. HEART: Regular rate and rhythm, S1, S2 without murmur, rub or gallop. ABDOMEN: Soft, nontender, nondistended, normoactive bowel sounds, no guarding, no rebound, no hepatosplenomegaly, no masses. : bilateral nephrostomy tubes draining clear yellow urine R<L, sullivan pink urine noted EXTREMITIES: 2+ pulses, warm, well-perfused, no edema. NEUROLOGICAL: Cranial nerves II through XII grossly intact. Normal speech, gait not observed. PSYCH: Normal mood, normal affect. SKIN: Warm, dry, normal turgor, no rashes or lesions noted Active Medications Generic Name Dose Route Start Last Admin Trade Name Freq PRN Reason Stop Dose Admin Acetaminophen 650 mg 02/23/17 17:46 02/27/17 21:57 Tylenol - PO 650 mg Q4H PRN Administration MODERATE PAIN Albuterol Sulfate 1 amp 02/27/17 18:16 Ventolin 0.083% Nebulizer Soln - NEB Q6H PRN SHORT OF BREATH/WHEEZING Amino Acids 30 ml 02/28/17 17:30 03/03/17 08:01 Prosource No Carb Liquid Pkt PO Not Given BID@0800,1730 [facility] Amlodipine Besylate 10 mg 02/24/17 10:00 03/03/17 09:31 Norvasc - PO 10 mg DAILY L[facility]A Administration Atorvastatin Calcium 10 mg 02/23/17 22:00 03/02/17 22:11 Lipitor - PO 10 mg HS LUCÍA Administration Gabapentin 100 mg 02/23/17 22:00 03/03/17 06:46 Neurontin - PO 100 mg TID LUCÍA Administration Fluconazole 50 mls @ 100 mls/hr 02/27/17 21:00 03/02/17 20:44 Diflucan 100 Mg/Ns Premixed Ivpb - IVPB 100 mls/hr DAILY@2100 L[facility]A Administration Lactobacillus Acidophilus 1 tab 02/24/17 12:15 03/03/17 09:31 Bacid - PO 1 tab DAILY [facility]A Administration Lidocaine HCl 1 applic 02/23/17 17:45 Xylocaine 2% Jelly TP PRN PRN PAIN Metoprolol Tartrate 50 mg 02/24/17 10:00 03/03/17 09:31 Lopressor - PO 50 mg DAILY [facility]A Administration Microbiology 03/01/17 05:35 Blood - Peripheral Venous Blood Culture - Preliminary NO GROWTH OBTAINED AFTER 48 HOURS, INCUBATION TO CONTINUE FOR 3 DAYS. 03/01/17 06:00 Blood - Peripheral Venous Blood Culture - Preliminary NO GROWTH OBTAINED AFTER 48 HOURS, INCUBATION TO CONTINUE FOR 3 DAYS. 02/28/17 19:50 Blood - Peripheral Venous Blood Culture - Preliminary Pending Organism 02/28/17 20:20 Blood - Peripheral Venous Blood Culture - Preliminary NO GROWTH OBTAINED AFTER 48 HOURS, INCUBATION TO CONTINUE FOR 3 DAYS. 02/25/17 20:30 Blood - Peripheral Venous Blood Culture - Final Yeast Like Organism 02/25/17 20:45 Blood - Peripheral Venous Blood Culture - Final Yeast Like Organism 02/25/17 20:30 Blood - Peripheral Venous Yeast/Fungus Identification - Preliminary Dora Lusitaniae 02/25/17 18:30 Urine - Urine Nephrostomy Tube Urine Culture - Final 02/24/17 Unknown Urine - Urine Nephrostomy Tube Urine Culture - Final Enterococcus Faecalis 02/25/17 13:45 Urine - Urine Nephrostomy Tube Urine Culture - Final Yeast Like Organism 02/23/17 08:52 Urine - Urine Clean Catch Urine Culture - Final Contaminated: Please Repeat ASSESSMENT/PLAN: 1. Hematuria secondary to bladder CA - s/p cystoscopy with irrigation of clot, cbi dc'd 03/01/17 Hydronephrosis secondary to bladder CA with KIANNA d/t obstruction - s/p Left nephrostomy tube 02/25/17 - last creatine 03/01/17 (2.4) close to baseline, repeat creatine pending today 2) ID sepsis likely secondary to bactremia from tract - zosyn, (02/26 - 03/02) and diflucan (day 5) - repeat blood cultures (03/01/17) + blood culture (02/28) preliminary - -ID (Catina) consulted and followed 3) card hypertension - b/p stable, continue lopressor hld - continue atorvastin 4) neuro delirium - likely secondary to adverse drug reaction vs situational delirum - stat head ct chronic microvascular changes, no acute pathology - hold diflucan and neurontin - pending CMP f/e/n - regular diet severe protein calorie malnutrition in setting of metastic ca - ensure and prostat - appreciate dietary input ppx - hold ac due hematuria - pt - oob - scd dispo: requires inpatient care DNR/DNI Visit type - Emergency Visit Emergency Visit: Yes ED Registration Date: 02/23/17 Care time: The patient presented to the Emergency Department on the above date and was hospitalized for further evaluation of their emergent condition. - New Patient This patient is new to me today: No - Critical Care Critical Care patient: No - Discharge Referral Referred to [facility] Med P.C.: No
[2017-03-03 12:27] LABS: BASOPHIL 0.2 % (0-2.0); EOSINOPHIL 2.3 % (0-4.5); MCH 27.2 pg (25.7-33.7); MCHC 33.2 g/dl (32.0-35.9); MEAN CELL VOLUME 81.9 fl (80-96); MEAN PLT VOLUME 7.7 fl (7.5-11.1); NEUTROPHILS 84.4 % (42.8-82.8); PLATELET COUNT 331 K/MM3 (134-434); WHITE BLOOD COUNT 13.3 K/mm3 (4.0-10.8)
[2017-03-03 13:03] LABS: ALBUMIN 2.7 g/dl (3.5-5.0); ALK PHOS 93 U/L (32-92); ANION GAP 9 (8-16); CALCIUM 8.2 mg/dl (8.4-10.2); CO2 27 mmol/L (22-28); GLUCOSE,RANDOM 173 mg/dl (74-106); MAGNESIUM 1.8 mg/dL (1.8-2.4); PHOSPHOROUS 3.4 mg/dl (2.5-4.6); SGOT/AST 33 U/L (10-42); SGPT/ALT 84 U/L (10-40); TOT PROT 6.1 g/dl (6.4-8.3)
[2017-03-03 13:18] LABS: BILIRUBIN,TOTAL < 0.3 mg/dl (0.2-1.0)
--- NOTE | 2017-03-03 20:21 | PN ---
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 He was noted to have KIANNA, Obstructive Uropathy from increased tumor burden. USG reviewed and results noted. He had cystoscopy and (L) PCN placed. Had fever, rigors and SOB and w/up revealed sepsis. BC and urine (+) Dora Lusitanae. Noted with confudion earlier today. W/Up done including CT Scan Head which showed chronic vascul;ar ischemic changes and NO acute pathology or mets. - Current Medication List Current Medications: Active Medications Acetaminophen (Tylenol -) 650 mg PO Q4H PRN PRN Reason: MODERATE PAIN Last Admin: 02/27/17 21:57 Dose: 650 mg Albuterol Sulfate (Ventolin 0.083% Nebulizer Soln -) 1 amp NEB Q6H PRN PRN Reason: SHORT OF BREATH/WHEEZING Amino Acids (Prosource No Carb Liquid Pkt) 30 ml PO BID@0800,1730 [facility] Last Admin: 03/03/17 16:54 Dose: 30 ml Amlodipine Besylate (Norvasc -) 10 mg PO DAILY [facility] Last Admin: 03/03/17 09:31 Dose: 10 mg Atorvastatin Calcium (Lipitor -) 10 mg PO HS [facility] Last Admin: 03/02/17 22:11 Dose: 10 mg Gabapentin (Neurontin -) 100 mg PO TID [facility] Last Admin: 03/03/17 06:46 Dose: 100 mg Fluconazole (Diflucan 100 Mg/Ns Premixed Ivpb -) 50 mls @ 100 mls/hr IVPB DAILY @2100 [facility] Last Admin: 03/02/17 20:44 Dose: 100 mls/hr Lactobacillus Acidophilus (Bacid -) 1 tab PO DAILY [facility] Last Admin: 03/03/17 09:31 Dose: 1 tab Lidocaine HCl (Xylocaine 2% Jelly) 1 applic TP PRN PRN PRN Reason: PAIN Metoprolol Tartrate (Lopressor -) 50 mg PO DAILY [facility] Last Admin: 03/03/17 09:31 Dose: 50 mg - Objective Vital Signs: Vital Signs Temperature 97.6 F 03/03/17 14:47 Pulse Rate 73 03/03/17 14:47 Respiratory Rate 19 03/03/17 20:14 Blood Pressure 99/58 03/03/17 14:47 O2 Sat by Pulse Oximetry (%) 98 03/03/17 20:14 Constitutional: Yes: No Distress Eyes: Yes: PERRL Neck: Yes: Supple Cardiovascular: Yes: Regular Rate and Rhythm Respiratory: Yes: CTA Bilaterally Gastrointestinal: Yes: Normal Bowel Sounds, Soft Neurological: Yes: Alert, Oriented Labs: CBC, BMP 03/03/17 12:20 03/03/17 12:20 INR, PTT INR 1.17 (0.82-1.09) 02/24/17 07:30 Problem List - Problems (1) Fever Code(s): R50.9 - FEVER, UNSPECIFIED Qualifiers: Fever type: unspecified Qualified Code(s): R50.9 - Fever, unspecified (2) Sepsis Code(s): A41.9 - SEPSIS, UNSPECIFIED ORGANISM (3) Candidemia Code(s): B37.7 - CANDIDAL SEPSIS Assessment/Plan Fever, Chills/Rigors in pt with bladder Ca s/p cystoscopy, (L) PCN UTI Fungemia Acute Confusional state - ? from GBP DC GBP for now Complete 1 more week Fluconazole C. Lusitanae usually (S) to [place]. If stable, DC to [facility] in AM
[2017-03-03] MEDS ORDERED: FLUCONAZOLE 100 MG/NS 50 ML IVPB SCH (22:00)
[2017-03-03] MEDS ORDERED: PT OWN MED DRAWER 7, Y5N ONE (22:05)
[2017-03-03] MEDS: ATORVASTATIN CA 10 MG TABLET (FP) PO SCH (22:21)
[2017-03-04 06:35] VITALS: TEMP 97.7
[2017-03-04] MEDS: AMINO ACIDS/PROTEIN HYDROLYS 30 ML LIQUID.PKT PO SCH (07:30)
[2017-03-04] MEDS: LACTOBACILLUS ACIDOPHILUS 1 EACH TAB (FP) PO SCH (09:55)
[2017-03-04] MEDS: amLODIPine BESYLATE 10 MG TABLET (FP) PO SCH (09:56)
[2017-03-04] MEDS: METOPROLOL TARTRATE 50 MG TABLET (FP) PO SCH (09:56)
--- NOTE | 2017-03-04 10:55 | DS ---
[id number]. 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 Pt presents to the ER with neighbor stating that he has noted hematuria since last night He has noted approximately 5 episodes where he found blood filling his diaper No abdominal or suprapubic pain, he does have a "Sensation" when he is passing blood He has noted that he is also passing "Debris" similar to what he passed after his bladder scraping Patient denies fever, chills, cough, SOB, CP, AP, N/V/D He is s/p recent admission to [facility], s/p 2 week admission to rehab He has had decreased po intake, related he thinks to not eating well since his 3 years ago PCP: Dr. Vega Urologist: Dr. Martinez Vital Signs Period Temp Pulse Resp BP Sys/Askew Pulse Ox Last 24 Hr 97.6 F-98.4 F 73-85 18-20 99-140/47-58 97-98 PHYSICAL EXAM GENERAL: The patient is awake, alert, and fully oriented, in no acute distress. HEAD: Normal with no signs of trauma. EYES: PERRL, extraocular movements intact, sclera anicteric, conjunctiva clear. No ptosis. ENT: Ears normal, nares patent, oropharynx clear without exudates, moist mucous membranes. NECK: Trachea midline, full range of motion, supple. LUNGS: Breath sounds equal, clear bilaterally throughout, diminished at bases, no wheezes, no accessory muscle use. HEART: Regular rate and rhythm, S1, S2 without murmur, rub or gallop. ABDOMEN: Soft, nontender, nondistended, normoactive bowel sounds, no guarding, no rebound, no hepatosplenomegaly, no masses. : bilateral nephrostomy tubes draining clear yellow urine R<L, sullivan pink urine noted EXTREMITIES: 2+ pulses, warm, well-perfused, no edema. NEUROLOGICAL: Cranial nerves II through XII grossly intact. Normal speech, gait not observed. PSYCH: Normal mood, normal affect. SKIN: Warm, dry, normal turgor, no rashes or lesions noted LABS Laboratory Results - last 24 hr 03/03/17 03/03/17 12:20 12:20 WBC 13.3 H D RBC 3.37 L Hgb 9.1 L Hct 27.5 L MCV 81.9 MCHC 33.2 RDW 15.0 Plt Count 331 D MPV 7.7 D Neutrophils % 84.4 H Lymphocytes % 8.4 Monocytes % 4.7 Eosinophils % 2.3 Basophils % 0.2 Sodium 136 Potassium 4.3 Chloride 100 Carbon Dioxide 27 Anion Gap 9 BUN 33 H Creatinine 2.0 H Creat Clearance w eGFR 31.69 Random Glucose 173 H D Calcium 8.2 L Phosphorus 3.4 Magnesium 1.8 Total Bilirubin < 0.3 AST 33 D ALT 84 H D Alkaline Phosphatase 93 H D Total Protein 6.1 L D Albumin 2.7 L Microbiology 03/01/17 05:35 Blood - Peripheral Venous Blood Culture - Final NO GROWTH AFTER 5 DAYS INCUBATION 03/01/17 06:00 Blood - Peripheral Venous Blood Culture - Final NO GROWTH AFTER 5 DAYS INCUBATION 02/28/17 20:20 Blood - Peripheral Venous Blood Culture - Final NO GROWTH AFTER 5 DAYS INCUBATION 02/28/17 19:50 Blood - Peripheral Venous Blood Culture - Final Yeast Like Organism 02/25/17 20:30 Blood - Peripheral Venous Yeast/Fungus Identification - Final Dora Lusitaniae 02/25/17 20:30 Blood - Peripheral Venous Blood Culture - Final Yeast Like Organism 02/25/17 20:45 Blood - Peripheral Venous Blood Culture - Final Yeast Like Organism 02/25/17 18:30 Urine - Urine Nephrostomy Tube Urine Culture - Final 02/24/17 Unknown Urine - Urine Nephrostomy Tube Urine Culture - Final Enterococcus Faecalis 02/25/17 13:45 Urine - Urine Nephrostomy Tube Urine Culture - Final Yeast Like Organism 02/23/17 08:52 Urine - Urine Clean Catch Urine Culture - Final Contaminated: Please Repeat HOSPITAL COURSE: patient was admitted from the emergency department for Hematuria secondary to bladder CA. patient underwent a cystoscopy with irrigation of clot and cbi on 02/24/17. CBI was discontinued on 03/01/17. He was noted to have Hydronephrosis secondary to bladder CA with KIANNA secondary to obstruction. Left nephrostomy tube was placed on 02/25/[address] Mueller. His last creatine 03/02/17 2.0. patient was placed on rocephin 2gm IV on hospital day 1 for empiric coverage. However, on 02/26/17, patient was noted to have rigors and fever. He was noted to have sepsis likely secondary to bactremia from tract. Dr. Selby ([place]) was consulted and patient was placed on zosyn, (02/26 - 03/02) and vancomycin was given. blood cultures resulted as positive for yeast. As a result, patient was placed on diflucan for 6 days of hospitalization. He was noted to have a past medical history of hypertension. b/p remained stable and lopressor was continued. HCTZ was discontinued due to KIANNA. On hosptial day 7 patient was noted to have delirium likely secondary to adverse drug reaction vs situational delirum. stat head ct chronic microvascular changes, no acute pathology. diflucan and neuronitn was held for 24 hours. patient's mental status returned to baseline. PLAN - d/c to short term rehab - d/c neurontin - continue diflucan for the next 7 days. Date of Admission:02/23/17 Date of Discharge: 03/04/17 Minutes to complete discharge: 45 Discharge Summary Reason For Visit: KIANNA (ACUTE KIDNEY INJURY) HEMATURIA Current Active Problems KIANNA (acute kidney injury) (Acute) Bladder cancer (Acute) Candidemia (Acute) DVT prophylaxis (Acute) Fever (Acute) HLD (hyperlipidemia) (Acute) HTN (hypertension) (Acute) Hematuria (Acute) Hyponatremia (Acute) Leg pain, right (Acute) Right leg weakness (Acute) Sepsis (Acute) UTI (urinary tract infection) (Acute) Condition: Improved - Instructions Diet, Activity, Other Instructions: - resume regular diet - continue diflucan 100mg daily for 7 days - continue all medications as prescribed - please follow up with Dr Barba within 2 weeks Referrals: Aureliano Vega MD [Staff Physician] - Disposition: ASSISTED FACILITY - Home Medications Comprehensive Discharge Medication List: Ambulatory Orders Atorvastatin Ca [Lipitor] 10 mg PO HS #0 tablet 02/09/14 Hydrochlorothiazide [Hctz -] 25 mg PO DAILY #0 tablet 02/09/14 Metoprolol Tartrate [Lopressor -] 50 mg PO DAILY #0 tablet 02/09/14 Amlodipine Besylate [Norvasc -] 10 mg PO DAILY tablet 01/31/17 Gabapentin [Neurontin -] 100 mg PO TID #90 mg 01/31/17 Sodium Chloride Tablet - 1 gm PO BID tablet 01/31/17 This patient is new to me today: No Emergency Visit: Yes ED Registration Date: 02/23/17 Care time: The patient presented to the Emergency Department on the above date and was hospitalized for further evaluation of their emergent condition. Critical Care patient: No - Discharge Referral Referred to [facility] No
[2017-03-04 12:05] VITALS: BP 130/51; PULSE 90
== END 2017-03-04 12:11 | DRG 686 ==
LOC: FER 08:04 → FM/S 14:05 → JSAMEDAYSX 02-25 14:21 → FM/S 02-25 15:23
PROVIDERS: ADMIT Internal Medicine; ATTEND Nurse Practitioner Family
PROC: 3C1ZX8Z Irrigation of Indwelling Device using Irrigating Substance, External Approach (ICD-10-PCS; 2017-02-24)
PROC: 0TCB8ZZ Extirpation of Matter from Bladder, Via Natural or Artificial Opening Endoscopic (ICD-10-PCS; principal; 2017-02-24 16:23)
PROC: 0T9130Z Drainage of Left Kidney with Drainage Device, Percutaneous Approach (ICD-10-PCS; 2017-02-25)
PROC: BT121ZZ Fluoroscopy of Left Kidney using Low Osmolar Contrast (ICD-10-PCS; 2017-02-25)
DX: C67.9 Malignant neoplasm of bladder, unspecified (principal); A40.9 Streptococcal sepsis, unspecified; E43 Unspecified severe protein-calorie malnutrition; N17.9 Acute kidney failure, unspecified; N13.30 Unspecified hydronephrosis; E87.1 Hypo-osmolality and hyponatremia; N13.8 Other obstructive and reflux uropathy; C79.51 Secondary malignant neoplasm of bone; N39.0 Urinary tract infection, site not specified; Z68.1 Body mass index [BMI] 19.9 or less, adult; B49 Unspecified mycosis; B37.89 Other sites of candidiasis; I10 Essential (primary) hypertension; E78.5 Hyperlipidemia, unspecified; M54.30 Sciatica, unspecified side; Z93.6 Other artificial openings of urinary tract status; N28.1 Cyst of kidney, acquired; R31.0 Gross hematuria; Z66 Do not resuscitate; R41.0 Disorientation, unspecified; T50.905A Adverse effect of unspecified drugs, medicaments and biological substances, initial encounter
CPT/HCPCS: 36415; 50432; 70450-TC; 71010-TC; 76775-TC; 76856-TC; 76942-TC; 80048; 80053; 81003; 81015; 83735; 83930; 83935; 84100; 84300; 85025; 85610; 86850; 86900; 86901; 87040; 87077; 87086; 87106; 87186; 93005; 94760; 97116-GP; 97162-GP; 99283-25; C1729; C1769; G0480